=== PATIENT | male | born 1940 | race Caucasian/White ===

== ENCOUNTER 2016-04-28 14:04 | Observation (INO) | payer MEDICARE ==
[~2016-04-28] VITALS: Ht 175.3 cm; Wt 170.7 kg
[2016-04-28 14:04] VITALS: BP 124/76; PULSE 56; RESP 14; O2SAT 95
[~2016-04-28 14:04] MED LIST: ATOR40TA69 PO; CLON0.3T PO; CLOP75TA3 PO; HYDR-4003 PO; HYDR12.55 PO; LINE600T2 PO; LISI10TA PO; LORA1TAB PO; MELO-253 PO; METF500T4 PO; MULT1CAP33 PO; NITR0.4T SL; OXYB5TAB10 PO; RISP1TAB3 PO; VERA180T5 PO; VERA240C PO
--- NOTE | 2016-04-28 15:07 | DRSVH ---
PROCEDURE: X-RAY CHEST ONE VIEW, PORTABLE ([id number]) INDICATIONS: CHETS PAIN TECHNIQUE: One view of the chest was acquired. COMPARISON: [facility], , CHEST 1VW (PORTABLE), 09/16/2014, 21:01. FINDINGS: Surgical changes and devices: None. Lungs and pleura: Lung volumes are low there is bronchovascular crowding. Interstitium is prominent. Mediastinum: Mediastinal contours appear normal. Heart size is enlarged. Bones and chest wall: No suspicious bony lesions. Overlying soft tissues appear unremarkable. IMPRESSION: Bronchovascular crowding, interstitial prominence and cardiomegaly. Developing edema can not be excluded. Correlate clinically. Dictated by: Jm Lee [facility] Interpreted: Raquel Bush MD on 04/28/2016 at 15:07 Transcribed by: TIBURCIO on 04/28/2016 at 15:07 Approved by: Raquel Bush MD, PhD on 04/28/2016 at 16:56
[2016-04-28 15:28] LABS: BASOPHILS % (AUTO) 0.3 % (0-3); EOSINOPHILS % (AUTO) 1.8 % (0-5); MONOCYTES % (AUTO) 8.4 % (4-12); Mean Corpuscular Hemoglobin 28.1 pg (27.0-35.0); Mean Corpuscular Volume 88.5 fL (81-100); NEUTROPHILS % (AUTO) 78.7 % (40-74); Platelet Count 255 bil/L (150-400)
[2016-04-28 15:48] LABS: INR 0.95 ratio
[2016-04-28 16:00] LABS: TROPONIN T < 0.010 ug/L (0.0-0.011)
--- NOTE | 2016-04-28 16:08 | ED.REPORT ---
HPI-Chest Pain 40 and Over Date of Service Apr 28, 2016 ED Provider: Ozzy Keyes MD Pt is a 75 y/o male w/ a hx of CAD and STEMI s/p stenting, T2DM, HTN, hyperlipidemia, morbid obesity, presenting to the ED via EMS c/o CP onset 1-3 hours ago (pt gave 2 different start times). He states that his chest pain was preceded by a couple seconds where he felt his vision "went black", but states it was only a few seconds, he denies syncope, near syncope, loss which lasted 2- 3 seconds while sitting in his chair. But severely following this, he felt set of substernal chest discomfprt He . The character of this episode was same as a prior MT but the severity was less. His pain was a 5/10 at worst and is a 3/10 at current time. He denies palpitations, change in edema, SOB, diaphoresis, nausea, vomiting. He received ASA and NTG by EMS with improvement. Nursing Notes Stated Complaint: CHEST PAIN Chief Complaint: Dysrhythmia/Cardiac Nursing Notes Reviewed: Yes (Stayfilm (blank no info on presentation, meds not reconciled ) Allergies: Coded Allergies: penicillin G (Verified Allergy, Intermediate, rash, 11/20/15) Scheduled Atorvastatin Calcium (Atorvastatin Calcium) 40 Mg Tablet 40 MG PO HS Clonidine (Clonidine) 0.3 Mg Tablet 0.3 MG PO BID Clopidogrel Bisulfate (Plavix) 75 Mg Tablet 75 MG PO DAILY Hydrochlorothiazide (Hydrochlorothiazide) 12.5 Mg Tablet 12.5 MG PO DAILY Lisinopril (Lisinopril) 10 Mg Tablet 10 MG PO DAILY Lorazepam (Lorazepam) 1 Mg Tablet 1 MG PO BID Meloxicam (Meloxicam) 15 Mg Tablet 15 MG PO QAM Metformin (Metformin) 500 Mg Tablet 1,000 MG PO BIDWM Metoprolol Succinate ER (Metoprolol Succinate ER) 25 Mg Tab.er.24h 25 MG PO DAILY Multivitamin (Multivitamins) 1 Each Capsule 1 EACH PO DAILY Naproxen (Naproxen) 500 Mg Tab 500 MG PO BID Oxybutynin Chloride (Oxybutynin Chloride) 5 Mg Tablet 5 MG PO BID Risperidone (Risperidone) 1 Mg Tablet 1 MG PO DAILY Verapamil ER (Verapamil ER) 180 Mg Tablet.er 180 MG PO QPM Verapamil ER (Verapamil ER) 240 Mg Cap24h.pel 240 MG PO QPM Scheduled PRN Hydrocodone-Acetaminophen 10-325 mg (Hydrocodone-Acetaminophen 10-325 mg) 1 Each Tablet 1 EACH PO TID PRN PRN For Pain Nitroglycerin SL (Nitrostat) 0.4 Mg Subl 0.4 MG SL Q5MIN PRN PRN For Chest Pain General Time Seen by MD: 16:02 Chief Complaint Chest pain Hx Obtained From: Patient, EMS Arrived By: Ambulance Sudden in Onset?: Yes Onset Occurred: 1 - 4 hours ago Symptom Duration: Since onset Location: : Substernal Quality: Painful Severity: Current: Mild Severity: Maximum: Moderate Past Medical History Past Medical History Notes: Echocardiogram 09/2014 EF 40% with apical septal wall akinesis, no valvular disease His recent admission was November 2015 for acute on chronic lower extremity edema with question possible cellulitis and strep mitis bacteremia Past Medical History Obstructive sleep apnea Chronic back and bilateral knee pain due to arthritis No known PVD morbid obesity Coronary artery disease, and N-STEMI September 2014 Type II diabetes History of bipolar Reports: Diabetes mellitus, Hyperlipidemia, Hypertension Past Surgical History Cardiac cath September 2014, bare mental stent placed in the left anterior descending EGD September 2014, small sliding hiatal hernia, mild erosive gastropathy Colonoscopy September 2014, diminutive colon polyps Smoking History Former Smoker Social History Alcohol Use: Denies alcohol use Drug Use: Denies drug use Ambulatory Status Walker Review of Systems Constitutional: Denies: Chills, Fever Respiratory: Denies: Non-productive cough, Shortness of breath Cardiovascular: Reports: Chest pain, Denies: Edema GI: Denies: Abdominal pain, Diarrhea, Nausea, Vomiting Skin: Denies Diaphoresis Complete sys rev & neg: except as marked. Physical Exam Initial Vital Signs Vital Signs (First) Date Time Temp Pulse Resp B/P Pulse Ox O2 Delivery O2 Flow Rate FiO2 04/28/16 14:04 36.7 56 14 124/76 95 Room Air Initial VS: Reviewed, Vital signs normal Head / Eyes: Atraumatic, Normocephalic, PERRL ENT: Mucous membranes moist, Conjunctiva normal, No scleral icterus Neck: Supple, Full range of motion Skin: Warm, Dry, No cyanosis Neurologic: Alert, Oriented, Nonfocal Psychiatric: Mood/affect normal, Behavior normal, Normal thought content General/Constitutional: Awake, Alert, No acute distress, Cooperative, Not toxic appearing Appearance / Presentation: Positive: Obese, morbidly He is a poor historian Respiratory / Chest: Atraumatic, No respiratory distress, No retractions Unable to hear breath sounds secondary to body habitus Cardiovascular: Heart rate NL, Cap refill not delayed, Peripheral circulation NL Lower Ext Edema: Positive: Bilateral 2+, Pitting Unable to hear heart sounds secondary to body habitus Edema is chronic Abdomen: Atraumatic, Soft Lower Extremity / Pelvis / MS: Atraumatic, Full range of motion, No deformity, Neurologic intact, Vascular intact, No compartment syndrome Faint pinkess over the shins of legs bilaterally, does not appear infected Interpretation & Diagnostics Lab Results Interpretation Result Diagram: 04/28/16 1516 04/28/16 1516 Test 04/28/16 15:16 White Blood Count 9.6th/mm3 (3.8-10.1) Red Blood Count 4.09mil/mm3 (4.40-5.80) Hemoglobin 11.5g/dL (13.8-17.2) Hematocrit 36.2% (41.0-50.0) Mean Corpuscular Volume 88.5fL (81-100) Mean Corpuscular Hemoglobin 28.1pg (27.0-35.0) Mean Corpuscular Hemoglobin Concent 31.8% (32.0-37.0) Red Cell Distribution Width 15.1% (12.3-15.4) Platelet Count 255bil/L (150-400) Neutrophils (%) (Auto) 78.7% (40-74) Lymphocytes (%) (Auto) 10.5% (14-46) Monocytes (%) (Auto) 8.4% (4-12) Eosinophils (%) (Auto) 1.8% (0-5) Basophils (%) (Auto) 0.3% (0-3) Prothrombin Time 10.2sec (8.1-12.5) Prothromb Time International Ratio 0.95ratio Activated Partial Thromboplast Time 26.4sec (22.8-33.0) Sodium Level 139mEq/L (134-144) Potassium Level 4.6mEq/L (3.5-5.2) Chloride Level 99mEq/L (97-108) Carbon Dioxide Level 26mmol/L (18-29) Blood Urea Nitrogen 29mg/dL (8-27) Creatinine 1.14mg/dL (0.76-1.27) Estimat Glomerular Filtration Rate 67mL/min (>59) Glucose Level 127mg/dL (60-99) Calcium Level 9.3mg/dL (8.5-10.1) Magnesium Level 1.7mg/dL (1.6-2.6) Total Bilirubin 0.3mg/dL (0.0-1.2) Aspartate Amino Transf (AST/SGOT) 21U/L (0-50) Alanine Aminotransferase (ALT/SGPT) 24U/L (0-44) Alkaline Phosphatase 58U/L (25-160) Troponin T < 0.010ug/L (0.0-0.011) Pro-B-Type Natriuretic Peptide 262.8pg/mL (0-486) Total Protein 6.5g/dL (6.4-8.4) Albumin 3.5g/dL (3.4-5.0) Hold Perkins Top Tube Received (Received) Lab Results Interpretation: CBC normal CMP normal Troponin #1 negative ECG Interpretation ECG Interpretation: Sinus rhythm rate 57 Q waves inferiorly Time: 16:16 Interpreted by: ED physician Normal ECG Interpretation: No acute ischemic changes, No change from prior ECGs X-Ray Chest Interpretation Chest Xray Interpretation: IMPRESSION: Bronchovascular crowding, interstitial prominence and cardiomegaly. Developing edema cannot be excluded. Correlate clinically. Dictated by: Jm Lee RRA Interpreted: Raquel Bush MD on 04/28/2016 at 15:07 Transcribed by: TIBURCIO on 04/28/2016 at 15:07 View: Portable, 1 view Interpretation / Wet Read by: Interpret - Radiologist Re-Eval/Medical Decision Med Decision/Clinical Course This is a 75-year-old morbidly obese gentleman with a prior history of coronary disease who has a bare metal stent to left anterior descending that was placed following an N STEMI in September 2014 who presents today complaining of chest discomfort that he says is identical in character, although not quite as severe , as his symptoms he had when he had his MT. The exact onset, is a bit unclear he is given several different start times-but in general is been a couple of hours of discomfort. EMS administered nitroglycerin and a dose of morphine and he is significantly improved, but he states he still has a trace bit of discomfort. He received another dose of nitroglycerin and another dose of morphine, and his chest discomfort resolved. He is morbidly obese, making it difficult to clinically assess CHF, he has chronic edema in his legs which he states is unchanged. He does not have a prior history of DVT or PE. He is not tachycardic, hypotensive, or hypoxic. It is very clear that his symptoms are identical in character, just not as severe as his prior MT, making a cardiac evaluation most likely. I think PE is less likely, and given the normal vitals and absence of other findings to suggest a PE, I believe he is low probability enough for an alternate explanation, that time d-dimer testing of requiring CT angiogram is not indicated at this time. he had Nitropaste applied. He received aspirin in the field, he tells me he is on daily aspirin-although it is not on the printed med list in pulse from his wallet. His discharge instructions frm November 2015 included Plavix, but he indicates he is no longer on Plavix. (Actually he states he does not know what medications he takes, but he goes off the list that he carries in his wallet- and it is not on that list. As stated above, he does indicate he takes aspirin , and it is not on the list from his wallet) Overall, his symptoms are concerning for the possibility of an acute cardiac syndrome. Observation admission and serial enzymes are warranted. The case was discussed with the hospitalist. Source of Hx: Old records Time of Eval: 17:03 Patient Status: Condition improved, Pain improved Re-Evaluation/Progress Note: Pt rechecked. Informed pt of need for admission due to possible/likely severity of condition. Pt understands and agrees with plan for admission. All questions addressed. Consultation : Referral / Consult Name: Amita Haley MD Consulted With: Hospitalist Call Returned at: 17:04 Air Intercept Controller: Will see patient, Agrees with eval, Agrees with plan, Accepts admit Differential Diagnosis: Positive: Chest pain, acute, Negative: Dysrhythmia, Gun shot wound chest, Mitral valve prolapse, Musculoskeletal pain, Myocarditis, Peptic ulcer disease, Pneumomediastinum, Pneumonia, Pneumothorax, Pulmonary edema, Pulmonary embolism, Rib fracture Counseled Regarding: Diagnosis, Lab results, Need for admission Discharge & Departure Primary Impression: Chest pain Chest pain type: unspecified Qualified Code: R07.9 - Chest pain, unspecified Additional Impression: Morbid obesity Obesity type: unspecified obesity type Qualified Code: E66.01 - Morbid ( severe) obesity due to excess calories Disposition: ADMITTED TO HOSPITAL Discharge Condition All VS Reviewed: Yes Condition: Stable Referrals: Vladislav Patel DO (PCP) Merary Attestation Portions of this note were transcribed by El Zepeda. I, Dr. Keyes personally performed the history, physical exam and medical decision-making; I reviewed and confirmed the accuracy of the information in the transcribed note. Signed by Merary Easton, 04/28/16 - [phone] copies to: Vladislav Patel Matthew F MD Apr 28, 2016 16:08 EL ZEPEDA Apr 28, 2016 16:16
[2016-04-28 16:10] LABS: Magnesium 1.7 mg/dL (1.6-2.6)
[2016-04-28] MEDS ORDERED: Nitroglycerin 2% 1 Gm Ointment TOPICAL SCH (16:20)
[2016-04-28 16:46] VITALS: BP 127/49; PULSE 53; RESP 16; O2SAT 97
[2016-04-28] MEDS ORDERED: NPR500T PO (17:00)
[2016-04-28 17:08] VITALS: BP 116/50; PULSE 51; RESP 16; O2SAT 95
[2016-04-28] MEDS ORDERED: HYDR-3740 PO (17:09)
[2016-04-28] MEDS ORDERED: METO25TA99 PO (17:09)
[2016-04-28] MEDS ORDERED: Alum-Mag Hydrox-Simeth 30 mL Suspension PO PRN (17:10)
[2016-04-28] MEDS ORDERED: Ondansetron 2 mg/mL 2 mL Inj IVPUSH PRN (17:10)
[2016-04-28] MEDS ORDERED: Senna-Docusate 8.6-50 mg Tablet PO PRN (17:15)
[2016-04-28] MEDS ORDERED: Polyethylene Glycol (PEG) 17 Gm Powder PO PRN (17:15)
[2016-04-28] MEDS ORDERED: Glucose 40% Oral Gel 15 Gm Tube PO PRN (17:15)
--- NOTE | 2016-04-28 17:17 | PCM.HPMED ---
Subjective Date of Service Apr 28, 2016 Primary Provider: Admitting Physician: Primary Care Physician: Vladislav Patel DO Attending Physician: Chief Complaint: Chest pain HISTORY was OBTAINED FROM PATIENT -He is a poor historian / [employer] NOTES History of present illness 75-year-old male, walker at baseline,sudden-onset bilateral vision loss which lasted 2-3 seconds while sitting in his chair then chest pain substernal similar to his DE previously. No shortness of breath no sweating, improved when EMS administered nitroglycerin and aspirin, further improved when ER administered nitroglycerin and morphine. This does not feel like acid reflux.frequent urinary baseline, asked ER to place miles. Review of Systems - none of the following - F/C/sick contact / wt change/ SIMON / lightheaded / dizziness / sob / cough / cp / acid reflux / n/v/diarrhea / bleeding/bruising / leg swelling / change in voiding / yeast infections / rash FAMILY HX no CAD MEDICATIONS Scheduled Atorvastatin Calcium (Atorvastatin Calcium) 40 Mg Tablet 40 MG PO HS Clonidine (Clonidine) 0.3 Mg Tablet 0.3 MG PO BID Clopidogrel Bisulfate (Plavix) 75 Mg Tablet 75 MG PO DAILY Hydrochlorothiazide (Hydrochlorothiazide) 12.5 Mg Tablet 12.5 MG PO DAILY Lisinopril (Lisinopril) 10 Mg Tablet 10 MG PO DAILY Lorazepam (Lorazepam) 1 Mg Tablet 1 MG PO BID Meloxicam (Meloxicam) 15 Mg Tablet 15 MG PO QAM Metformin (Metformin) 500 Mg Tablet 1,000 MG PO BIDWM Multivitamin (Multivitamins) 1 Each Capsule 1 EACH PO DAILY Naproxen (Naproxen) 500 Mg Tab 500 MG PO BID Oxybutynin Chloride (Oxybutynin Chloride) 5 Mg Tablet 5 MG PO BID Risperidone (Risperidone) 1 Mg Tablet 1 MG PO DAILY Verapamil ER (Verapamil ER) 180 Mg Tablet.er 180 MG PO QPM Verapamil ER (Verapamil ER) 240 Mg Cap24h.pel 240 MG PO QPM Scheduled PRN Nitroglycerin SL (Nitrostat) 0.4 Mg Subl 0.4 MG SL Q5MIN PRN PRN For Chest Pain Past Medical History Echocardiogram 09/2014 EF 40% with apical septal wall akinesis, no valvular disease His recent admission was November 2015 for acute on chronic lower extremity edema with question possible cellulitis and strep mitis bacteremia Obstructive sleep apnea Chronic back and bilateral knee pain due to arthritis No known PVD morbid obesity Type II diabetes History of bipolar Diabetes mellitus, Hyperlipidemia, Hypertension Cardiac cath September 2014, bare mental stent placed in the left anterior descending EGD September 2014, small sliding hiatal hernia, mild erosive gastropathy Colonoscopy September 2014, diminutive colon polyps Smoking History Former Smoker Allergies Coded Allergies: penicillin G (Verified Allergy, Intermediate, rash, 11/20/15) PMH Social History Hx Alcohol Use: Yes (stopped drinking 30 years ago) Hx Substance Use: No Hx Tobacco Use: No Smoking Status: Former Smoker Exam Vital Signs Vital Sign - Last Date Time Temp Pulse Resp B/P Pulse Ox O2 Delivery O2 Flow Rate FiO2 04/28/16 17:08 51 16 116/50 95 Room Air 04/28/16 16:46 36.4 Exam Exam on admission NAD A and O x 3 mood affect WNL NC/AT no icterus no injected eyes EOMI PERRL /no pharyngeal lesions/ no oral lesions / hearing intact Supple neck CTAB equal chest rise / no accessory muscle use / speaks in full sentences / no rrw RRR S1 S2 / no mrg / 2+ radial pulses Soft nt nd + BS no hepatosplenomegaly Moderate matute edema // mild erythema no cyanosis no ecchymosis of lower extremities No rash / no jaundice LIVIER Miles clear yellow trop i neg 11/2015 echo EF 55-60% EKG SR poor R wave progression Lab and Diagnostics Result Diagram: 04/28/16 1516 04/28/16 1516 Assessment & Plan Active issues and reason for admission 75-year-old male who presents with chest pain that similar to prior DE, bare metal stent- LAD baseline walker. -- Serial troponin, echo pending, lipid panel, --anticipate ordering stress nuc med echo in the morning, if negative troponin -- Aspirin morphine nitroglycerin Chronic issues known prior to admission, present on admission Echocardiogram 09/2014 EF 40% with apical septal wall akinesis, no valvular disease His recent admission was November 2015 for acute on chronic lower extremity edema with question possible cellulitis and strep mitis bacteremia Obstructive sleep apnea Chronic back and bilateral knee pain due to arthritis No known PVD morbid obesity Type II diabetes History of bipolar Diabetes mellitus, Hyperlipidemia, Hypertension Cardiac cath September 2014, bare mental stent placed in the left anterior descending EGD September 2014, small sliding hiatal hernia, mild erosive gastropathy Colonoscopy September 2014, diminutive colon polyps -- Resume home medications, sliding scale insulin for now Diet cardiac diabetic nothing by mouth in the morning DVT prophylaxis lovenox Code full, per history DNR, confirm in the morning Disposition OBS status Assessment and plan were discussed with patient Amita Haley MD Apr 28, 2016 17:17
[2016-04-28 17:27] VITALS: BP 129/29; PULSE 52; RESP 16; O2SAT 95
[2016-04-28] MEDS: Insulin LISPRO 300 Unit/3 mL Inj SUBQ SCH ×2 (17:30→22:07)
[2016-04-28 19:47] VITALS: BP 143/83; PULSE 62; RESP 16; O2SAT 97
[2016-04-28] MEDS: Pantoprazole 20 mg ER24 Tablet PO SCH (20:23)
[2016-04-28 22:10] LABS: Creatine Kinase 34 U/L (21-232)
--- NOTE | 2016-04-28 22:30 | NUR ---
ADMIT Pt arrived via bariatric bed at 1900, received by day shift RN initially then transferred to this RN. A&Ox4, VSS, admit and med rec done per admit RN. Pt has no pain at this time. Continuing care.
[2016-04-28] MEDS ORDERED: COD28PAS TOP (22:37)
[2016-04-28] MEDS ORDERED: VERAPAMIL 240 MG PO SCH (23:00)
[2016-04-29] VITALS (8 sets, daily range): BP systolic 109–127; BP diastolic 58–84; PULSE 58–66; RESP 16–20; O2SAT 93–96
[2016-04-29] MEDS: Sodium Chloride LOK Flush 10 mL Syringe IVFLUSH SCH ×4 (00:28→23:44)
--- NOTE | 2016-04-29 01:11 | NUR ---
pain patient has pain to right hip. chronic. rates 8 per scale, requests pain medication as per med rec notified Dr Xie received orders for hydrocodone 10-325 plan to administer and re assess.
[2016-04-29] MEDS: HYDROcodone-APAP 10-325 mg PO PRN ×4 (01:21→20:08)
[2016-04-29 01:27] LABS: APPEARANCE,URINE HAZY (CLEAR,HAZY); COLOR,URINE YELLOW (YELLOW); OCCULT BLOOD,URINE LARGE (NEGATIVE); PH,URINE 5.5 (5.0-8.0); UROBILINOGEN,URINE NORMAL (NORMAL)
[2016-04-29 03:21] LABS: BASOPHILS % (AUTO) 0.2 % (0-3); EOSINOPHILS % (AUTO) 3.5 % (0-5); MONOCYTES % (AUTO) 10.4 % (4-12); Mean Corpuscular Volume 88.9 fL (81-100); NEUTROPHILS % (AUTO) 71.1 % (40-74); Platelet Count 265 bil/L (150-400)
[2016-04-29 04:09] LABS: Creatine Kinase 28 U/L (21-232)
[2016-04-29] MEDS: Insulin LISPRO 300 Unit/3 mL Inj SUBQ SCH ×4 (08:00→22:00)
[2016-04-29] MEDS ORDERED: Verapamil SR 180 mg ER12 Tablet PO SCH (08:30)
[2016-04-29] MEDS ORDERED: MeTOProlol XL 25 mg ER24 Tablet PO SCH (08:30)
[2016-04-29] MEDS: risperiDONE 1 mg Tablet PO SCH (09:32)
[2016-04-29] MEDS: LORazepam 1 mg Tablet PO SCH ×2 (09:32→20:08)
[2016-04-29] MEDS: Pantoprazole 20 mg ER24 Tablet PO SCH ×2 (09:32→20:08)
[2016-04-29] MEDS: cloNIDine 0.1 mg Tablet PO SCH ×2 (10:19→20:08)
--- NOTE | 2016-04-29 10:20 | NUR ---
Stress Test patient went for stress test at 1020. blood sugar 106. has been NPO since last night. Held Metoprolol and Verampill per MD orders. c/o pain 8/ to hip and PRN [place] given as ordered with effective results.
--- NOTE | 2016-04-29 12:15 | NUR ---
Back from stress test. patient back from stress test. blood [id number] after stress test and per patient," they fed me muffin over there." Telemetry on.
--- NOTE | 2016-04-29 13:44 | NUR ---
Attempted to give SANCHEZ and Medicare Part D info to pt at 11:12 am, out of room (at test). Will try this afternoon. BTMILLIE banegas RN
--- NOTE | 2016-04-29 14:34 | NUR ---
Case Managment: SANCHEZ and Medicare Part D info given and explained to pt at 2:05 pm at bedside. Pt had no questions at this time. Copy given to pt, original placed on pt's hard chart. MILLIE Sánchez RN
--- NOTE | 2016-04-29 16:14 | DRSVH ---
[facility] [address] [place] [address] Echocardiogram Report Name: SALVADOR CASTRO MStudy Date : 04/29/2016 Height: 69 in Hospital Exam Location: [facility] Weight: 376 lb Gender: Male BSA: 2.7 m2 : 1940 Age: 75 yrs BP: 122/75 mmHg Reason For Study: Chest pain Ordering Physician: Performed By: Sudha Cardona Referring Physician: Vladislav Patel Interpretation Summary The study quality was technically limited. A contrast injection of Definity was performed to improve assessment of LV function. Left ventricular ejection fraction is estimated to be 45 +/- 5%. There is apical moderate hypokinesis. Procedure: A two-dimensional transthoracic echocardiogram with color flow and Doppler was performed. The study quality was technically limited. Comparison is made with the echocardiogram of 11-21-15. A contrast injection of Definity was performed to improve assessment of LV function. There were very limited images due to the patients body habitus. The patient was in normal sinus rhythm during the exam. Left Ventricle: The left ventricle is normal in size. Left ventricular ejection fraction is estimated to be 45 +/- 5%. There is apical moderate hypokinesis. Right Ventricle: The right ventricle grossly appears normal in size with probable normal systolic function. Atria: The left atrial size is normal. Mitral Valve: The mitral valve is grossly normal. Aortic Valve: The aortic valve is grossly normal. Tricuspid Valve: The tricuspid valve is not well visualized, but is grossly normal. There is trace tricuspid regurgitation. Pulmonic Valve: The pulmonic valve is not well visualized. Great Vessels: The aortic root is normal size. The ascending aorta is mildly enlarged. The inferior vena cava was not well visualized. Pericardium/ Pleura There is no pericardial effusion. MMode/2D Measurements & Calculations EPSS: 1.4 cm LA dimension: 3.8 cm AoV Openin.0 cm Ao root diam: 3.5 cm Aortic Jxn: 3.0 cm asc Aorta Diam: 3.9 cm Doppler Measurements & Calculations TR max vicki: 291.0 cm/sec TR max P.9 mmHg Electronically signed by: Harjit Ray on Reading Physician:04/29/2016 04:13 PM
--- NOTE | 2016-04-29 17:36 | NUR ---
Echo and stress test patient is alert and oriented X3. Able to make needs known. stable vital signs. room air. Stress test day 2 tomorrow morning. NPO after mid night for stress test day 2. Echo cardiogram done this shift. Landaverde is patent and draining clear yellow urine. patient c/o pain this shift right hip and PRN pain medication given for pain 10/18 this shift as ordered with effective results. blood sugars 106, 222, 211. insulin given as ordered. on Telemetry and sinus 68 per tele. call light with in reach for safety and uses as needed. stable mood. continue to monitor for pain, safety, and blood sugars as ordered.
--- NOTE | 2016-04-29 20:43 | PCM.PNMED ---
Subjective Date of Service Apr 29, 2016 Subjective Patient was seen and examined at bedside patient denied any chest pain, shortness of breath, nausea, vomiting, diarrhea. Exam Vital Signs Vital Sign - Last Date Time Temp Pulse Resp B/P Pulse Ox O2 Delivery O2 Flow Rate FiO2 04/29/16 20:25 36.8 62 16 127/76 94 Room Air Intake and Output 04/28/16 04/28/16 04/29/16 Cumulative From/Thru 14:59 22:59 06:59 04/28/16 14:04 - 04/29/16 05:29 Intake Total 350 ml 350 ml Output Total 1500 ml 1500 ml Balance -1150 ml -1150 ml Intake Oral 350 ml 350 ml Output Urine Total 1500 ml 1500 ml # Bowel Movements 0 0 Exam Physical Exam: GEN: Patient was awake, alert, responding appropriately to questions HEENT: PERRLA, EOMI, Neck soft supple, trachea midline, nomocephalic/atraumatic CV: +S1/S2, RRR, no murmurs auscultated Respiratory: CTAB, no wheezes, rales, rhonchi GI: +bowel sounds x4, soft, compressible, non TTP EXT: no c/c/ 2+ pitting edema Neuro: CN II-XII grossly intact Psych: mood and affect were appropriate IVs and Medications Medications Reviewed: Medications were reviewed in detail Medications Current Medications Pantoprazole 20 mg BID PO Last administered on 04/30/16 08:21; Admin Dose 20 MG ; Start 04/28/16 at 20:30 Sodium Chloride 10 ml CRISTINA IVFLUSH Last administered on 04/30/16 16:59; Admin Dose 10 ML; Start 04/29/16 at 00:30 Aspirin 81 mg DAILY PO Last administered on 04/30/16 08:21; Admin Dose 81 MG; Start 04/29/16 at 08:30 Atorvastatin Calcium 40 mg HS PO Last administered on 04/29/16 20:08; Admin Dose 40 MG; Start 04/29/16 at 21:00 Lisinopril 10 mg DAILY PO Last administered on 04/30/16 08:21; Admin Dose 10 MG ; Start 04/29/16 at 08:30 Lorazepam 1 mg BID PO Last administered on 04/30/16 08:21; Admin Dose 1 MG; Start 04/29/16 at 08:30 Metoprolol Succinate 25 mg DAILY PO; Start 04/29/16 at 08:30; Stop 04/29/16 at 09:52; Status DC Risperidone 1 mg DAILY PO Last administered on 04/30/16 08:21; Admin Dose 1 MG ; Start 04/29/16 at 08:30 Verapamil HCl 180 mg DAILY@0830 PO; Start 04/29/16 at 08:30; Stop 04/29/16 at 09 :52; Status DC Clonidine 0.3 mg BID PO Last administered on 04/30/16 08:21; Admin Dose 0.3 MG ; Start 04/29/16 at 08:30 Hydrochlorothiazide 12.5 mg DAILY PO Last administered on 04/30/16 08:22; Admin Dose 12.5 MG; Start 04/29/16 at 08:30 Non-Formulary Medication 240 mg QPM PO; Start 04/28/16 at 23:00; Status UNV Verapamil HCl 240 mg HS PO; Start 04/28/16 at 23:00; Stop 04/29/16 at 00:06; Status DC Verapamil HCl 240 mg HS PO; Start 04/29/16 at 21:00; Stop 04/29/16 at 21:00; Status DC Acetaminophen/ Hydrocodone Bitart 1 tablet TID PRN PO Last administered on 04/30 18:18; Admin Dose 1 TABLET; Start 04/29/16 at 01:10 Lab and Diagnostics Result Diagram: 04/29/1623904/29/16239 Assessment & Plan 75-year-old male who presents with chest pain that similar to prior [place], bare metal stent- LAD baseline walker. Chest pain that similar to prior VT, bare metal stent- LAD baseline walker. -- Serial troponin, echo pending, lipid panel, --anticipate ordering stress nuc med echo in the morning, if negative troponin -- Aspirin morphine nitroglycerin Chronic issues known prior to admission, present on admission Echocardiogram 09/2014 EF 40% with apical septal wall akinesis, no valvular disease His recent admission was November 2015 for acute on chronic lower extremity edema with question possible cellulitis and strep mitis bacteremia Obstructive sleep apnea Chronic back and bilateral knee pain due to arthritis No known PVD morbid obesity Type II diabetes History of bipolar Diabetes mellitus, Hyperlipidemia, Hypertension Cardiac cath September 2014, bare mental stent placed in the left anterior descending EGD September 2014, small sliding hiatal hernia, mild erosive gastropathy Colonoscopy September 2014, diminutive colon polyps -- Resume home medications, sliding scale insulin for now Diet cardiac diabetic nothing by mouth in the morning DVT prophylaxis lovenox Code full, per history DNR, confirm in the morning Disposition OBS status Assessment and plan were discussed with patient VTE Mechanical Devices: Intermittant Pneumatic CD Emi Lorenzo DO Apr 29, 2016 20:43
[2016-04-29] MEDS ORDERED: Verapamil SR 240 mg ER12 Tablet PO SCH (21:00)
--- NOTE | 2016-04-29 23:40 | NUR ---
pain patient complains of right hip discomfort earlier in the shift. repositioned on right side (patient prefers the right) medicated with hyrdrocodone 10-325 one tablet patient resting now. rates pain tolerable as a 3. care ongoing.
[2016-04-30] VITALS (7 sets, daily range): BP systolic 137–171; BP diastolic 60–87; PULSE 58–148; RESP 16–18; O2SAT 93–98
[2016-04-30] MEDS: HYDROcodone-APAP 10-325 mg PO PRN ×3 (02:40→18:18)
[2016-04-30] MEDS: Insulin LISPRO 300 Unit/3 mL Inj SUBQ SCH ×4 (08:00→22:00)
--- NOTE | 2016-04-30 08:15 | NUR ---
Nuclear Med Nuclear Med came up to give patient injection prior to stress, she stated patient can have all of his morning meds and eat now, he no longer has any restrictions and stated they will be back to get him in about 30 min.
[2016-04-30] MEDS: cloNIDine 0.1 mg Tablet PO SCH ×2 (08:21→22:54)
[2016-04-30] MEDS: LORazepam 1 mg Tablet PO SCH ×2 (08:21→20:39)
[2016-04-30] MEDS: risperiDONE 1 mg Tablet PO SCH (08:21)
[2016-04-30] MEDS: Pantoprazole 20 mg ER24 Tablet PO SCH ×2 (08:21→20:40)
[2016-04-30 08:48] LABS: Mean Corpuscular Hemoglobin 27.6 pg (27.0-35.0); Mean Corpuscular Volume 88.7 fL (81-100)
[2016-04-30] MEDS: Sodium Chloride LOK Flush 10 mL Syringe IVFLUSH SCH ×2 (08:56→16:59)
--- NOTE | 2016-04-30 10:30 | NUR ---
Morning Rounds Staffed patient's case with Dr. Lorenzo, social work and case management. Dr. Lorenzo stated follow up stress test results from today still pending, no plan for discharge at this time. I asked for PT eval.
--- NOTE | 2016-04-30 14:46 | DRSVH ---
PROCEDURE: TWO DAY STRESS TEST. Rest and pharmacological stress myocardial perfusion SPECT RADIOPHARMACEUTICAL: 26 mCi Tc-99m tetrofosmin IV at rest and 26 mCi Tc-99m tetrofosmin IV at peak e ffect of pharmacological stress. [id number] was performed. INDICATIONS: CHEST PAIN TECHNIQUE: Radiopharmaceutical was injected at peak stress test, and also at rest. SPECT images wer e obtained. SPECT myocardial perfusion images were displayed in short axis, horizontal long axis, an d vertical long axis views. Images were reviewed using uma information technology software. COMPARISON: None. CARDIAC STRESS: A pharmacologic stress test was performed under the supervision of attending staff, using an infusion of Lexiscan. Hemodynamic data: There is normal blood pressure and heart rate response to pharmacologic stress. Symptoms: The patient denied anginal chest pain. Aminophylline: Not given. EKG: No diagnostic changes of ischemia; no ectopy. FINDINGS: Raw Data: There is good myocardial uptake of radiotracer. No significant motion artifacts. Lung-to -heart ratio is 0.35 (normal is less than 0.38 for tetrofosmin tracer). TID is 1.02. Left Ventricle Function: Gated images were not obtained to assess wall motion and ejection fraction, due to irregular heart rate. Myocardial Perfusion: There is normal distribution of activity in the right and left ventricular carl cardium. No fixed or reversible perfusion defects. There is a mild anteroapical defect. There is m inimal improvement at rest in the anterior wall. Overall, this is a mild defect. There is a predomi nantly fixed inferior defect. Some of this could be due to attenuation artifact. The apical defect is essentially fixed. It is the anterior part of the anteroapical defect that improves. IMPRESSION: No significant ST-T changes. Mildly reversible anterior defect, fixed apical defect, so me of it could be due attenuation artifact, even patient's body habitus. Prone images, however, coul d not be obtained. Overall this is an intermediate risk stress test. Dictated by: Harjit Ray M.D. on 04/30/2016 at 13:02 Transcribed by: ELSA on 04/30/2016 at 17:46 Approved by: Harjit Ray M.D. on 05/14/2016 at 14:20
--- NOTE | 2016-04-30 19:28 | PCM.PNMED ---
Subjective Date of Service Apr 30, 2016 Subjective Patient was examined at bedside today. Patient denies any chest pain, nausea, vomiting, diarrhea. Patient reports some mild shortness of breath Exam Vital Signs Vital Sign - Last Date Time Temp Pulse Resp B/P Pulse Ox O2 Delivery O2 Flow Rate FiO2 04/30/16 18:24 36.6 148 16 148/60 96 Room Air 04/30/16 07:55 2.00 Intake and Output 04/29/16 04/29/16 04/30/16 Cumulative From/Thru 15:00 23:00 07:00 04/28/16 14:04 - 04/30/16 05:45 Intake Total 600 ml 950 ml Output Total 3100 ml 4600 ml Balance -2500 ml -3650 ml Intake Oral 600 ml 950 ml Output Urine Total 3100 ml 4600 ml # Bowel Movements 0 Exam Physical Exam: GEN: Patient was awake, alert, responding appropriately to questions HEENT: PERRLA, EOMI, Neck soft supple, trachea midline, nomocephalic/atraumatic CV: +S1/S2, RRR, no murmurs auscultated Respiratory: CTAB, no wheezes, rales, rhonchi GI: +bowel sounds x4, soft, compressible, non TTP : [place] in place EXT: no c/c 2+ bilateral pitting edema, mild tenderness to palpation bilaterally Neuro: CN II-XII grossly intact Psych: mood and affect were appropriate IVs and Medications Medications Reviewed: Medications were reviewed in detail Lab and Diagnostics Result Diagram: 04/30/16 0813 04/29/16 0240 Cardiac Echo Impressions Echocardiogram Report Name: SALVADOR CASTRO MStudy Date : 04/29/2016 Height: 69 in Hospital Exam Location: [facility] Weight: 376 lb Gender: Male BSA: 2.7 m2 : 1940 Age: 75 yrs BP: 122/75 mmHg Reason For Study: Chest pain Ordering Physician: Performed By: Sudha Cardona Referring Physician: Vladsilav Patel Interpretation Summary The study quality was technically limited. A contrast injection of Definity was performed to improve assessment of LV function. Left ventricular ejection fraction is estimated to be 45 +/- 5%. There is apical moderate hypokinesis. Procedure: A two-dimensional transthoracic echocardiogram with color flow and Doppler was performed. The study quality was technically limited. Comparison is made with the echocardiogram of 11-21-15. A contrast injection of Definity was performed to improve assessment of LV function. There were very limited images due to the patients body habitus. The patient was in normal sinus rhythm during the exam. Left Ventricle: The left ventricle is normal in size. Left ventricular ejection fraction is estimated to be 45 +/- 5%. There is apical moderate hypokinesis. Right Ventricle: The right ventricle grossly appears normal in size with probable normal systolic function. Atria: The left atrial size is normal. Mitral Valve: The mitral valve is grossly normal. Aortic Valve: The aortic valve is grossly normal. Tricuspid Valve: The tricuspid valve is not well visualized, but is grossly normal. There is trace tricuspid regurgitation. Pulmonic Valve: The pulmonic valve is not well visualized. Great Vessels: The aortic root is normal size. The ascending aorta is mildly enlarged. The inferior vena cava was not well visualized. Pericardium/ Pleura There is no pericardial effusion. MMode/2D Measurements & Calculations EPSS: 1.4 cm LA dimension: 3.8 cm AoV Openin.0 cm Ao root diam: 3.5 cm Aortic Jxn: 3.0 cm asc Aorta Diam: 3.9 cm Doppler Measurements & Calculations TR max vicki: 291.0 cm/sec TR max P.9 mmHg Electronically signed by: Harjit Ray on Reading Physician:04/29/2016 04:13 PM Assessment & Plan 75-year-old male who presents with chest pain that similar to prior [place], bare metal stent- LAD baseline walker. Chest pain that similar to prior SD, bare metal stent- LAD baseline walker. -- Serial troponins negative --Echo pending chest EF of 40-45% --lipid panel within normal limits --anticipate ordering stress nuc med showed a mid distal inferior wall defect and a follow-up echo was done today -- Continue aspirin 81 mg daily -- Nitroglycerin 0.4 mg when necessary chest pain Diabetes type II -- Continue Insulin sliding scale -- Accu-Cheks before meals and at bedtime Hypertension -- Continue hydrochlorothiazide 12.5 mg twice a day --Continue clonidine 0.3 twice a day -- Continue lisinopril 10 mg daily Morbid obesity with deconditioning -- PT eval and treat GERD secondary to Sliding hiatal hernia with mild erosive gastropathy chronic -- Continue Protonix 20 mg twice a day History of bipolar -- Continue Risperdal 1 mg daily -- Ativan 1 mg twice a day Chronic problems upon admission Obstructive sleep apnea Chronic back and bilateral knee pain due to arthritis Diet cardiac diabetic DVT prophylaxis lovenox Code full, per history DNR, confirm in the morning VTE Mechanical Devices: Intermittant Pneumatic CD Emi Lorenzo DO Apr 30, 2016 19:28
[2016-05-01] VITALS (9 sets, daily range): BP systolic 127–162; BP diastolic 75–94; PULSE 53–95; RESP 16–20; O2SAT 95–100
[2016-05-01] MEDS: Sodium Chloride LOK Flush 10 mL Syringe IVFLUSH SCH ×4 (00:05→23:06)
[2016-05-01] MEDS: HYDROcodone-APAP 10-325 mg PO PRN ×3 (00:05→20:15)
--- NOTE | 2016-05-01 04:15 | NUR ---
Pain Patient reporting 6/10 pain in his hip; hydrocodone-acetaminophen tablet given per orders with only slight improvement in patient's reported pain. Patient later noted to be sleeping. Continue to monitor.
[2016-05-01] MEDS: Insulin LISPRO 300 Unit/3 mL Inj SUBQ SCH ×4 (08:00→22:00)
[2016-05-01] MEDS: LORazepam 1 mg Tablet PO SCH ×2 (08:14→20:26)
[2016-05-01] MEDS: cloNIDine 0.1 mg Tablet PO SCH ×2 (08:14→20:26)
[2016-05-01] MEDS: Pantoprazole 20 mg ER24 Tablet PO SCH ×2 (08:14→20:26)
[2016-05-01] MEDS: risperiDONE 1 mg Tablet PO SCH (08:14)
--- NOTE | 2016-05-01 10:45 | NUR ---
Morning Rounds Staffed patient's case with Dr. Lorenzo and Social Work. Dr. Lorenzo stated patient can be discharged pending PT eval. I stated patient will need assistance with transportation if he is discharged home. Dr. Lorenzo asked for RN to call her once PT has seen patient.
--- NOTE | 2016-05-01 12:38 | NUR ---
Discharge Planning Patient's friend/former caregiver Shalini Miller is present at this time, stated she would like to speak with a transportation planner, as patient is not able to care for himself at home. I told her there is not an order for discharge at this time, but would contact the social media director to have someone speak with her, called [phone] to speak with social media director, but was only able to leave a message at this time. PT eval was completed, but they did not feel patient was ready for discharge today.
--- NOTE | 2016-05-01 12:57 | NUR ---
Evaluation completed. Please go to "Notes" then click on "Assessments and Notes" (bottom left corner of screen). Then select appropriate discipline tab on top of screen.
--- NOTE | 2016-05-01 16:54 | PCM.PNMED ---
Subjective Date of Service May 01, 2016 Subjective Patient was examined at bedside today. Patient denies any chest pain, shortness of breath, nausea, vomiting, diarrhea. Patient states that he has been feeling weak and is concerned about his safety being discharged home. Exam Vital Signs Vital Sign - Last Date Time Temp Pulse Resp B/P Pulse Ox O2 Delivery O2 Flow Rate FiO2 05/01/16 12:47 36.5 64 18 127/81 96 Nasal Cannula 2.00 Intake and Output 04/30/16 04/30/16 05/01/16 Cumulative From/Thru 15:00 23:00 07:00 04/28/16 14:04 - 05/01/16 05:18 Intake Total 1680 ml 600 ml 3230 ml Output Total 1400 ml 750 ml 6750 ml Balance 280 ml -150 ml -3520 ml Intake Oral 1680 ml 600 ml 3230 ml Output Urine Total 1400 ml 750 ml 6750 ml # Bowel Movements 0 Exam Physical Exam: GEN: Patient was awake, alert, responding appropriately to questions HEENT: PERRLA, EOMI, Neck soft supple, trachea midline, nomocephalic/atraumatic CV: +S1/S2, RRR, no murmurs auscultated Respiratory: CTAB, no wheezes, rales, rhonchi GI: +bowel sounds x4, soft, compressible, mild TTP EXT: no c/c +2 pitting edema in the lower extremities bilaterally Neuro: CN II-XII grossly intact Psych: mood and affect were appropriate IVs and Medications Medications Reviewed: Medications were reviewed in detail Medications Current Medications Atorvastatin Calcium 40 mg HS PO Last administered on 04/30/16t 20:39; Admin Dose 40 MG; Start 04/29/16 at 21:00 Verapamil HCl 240 mg HS PO; Start 04/29/16 at 21:00; Stop 04/29/16 at 21:00; Status DC Lab and Diagnostics Result Diagram: 04/30/16 0813 04/29/16 0240 Cardiac Echo Impressions Echocardiogram Report Name: SALVADOR CASTRO MStudy Date : 04/29/2016 Height: 69 in Hospital Exam Location: [facility] Weight: 376 lb Gender: Male BSA: 2.7 m2 : 1940 Age: 75 yrs BP: 122/75 mmHg Reason For Study: Chest pain Ordering Physician: Performed By: Sudha Cardona Referring Physician: Vladislav Patel Interpretation Summary The study quality was technically limited. A contrast injection of Definity was performed to improve assessment of LV function. Left ventricular ejection fraction is estimated to be 45 +/- 5%. There is apical moderate hypokinesis. Procedure: A two-dimensional transthoracic echocardiogram with color flow and Doppler was performed. The study quality was technically limited. Comparison is made with the echocardiogram of 11-21-15. A contrast injection of Definity was performed to improve assessment of LV function. There were very limited images due to the patients body habitus. The patient was in normal sinus rhythm during the exam. Left Ventricle: The left ventricle is normal in size. Left ventricular ejection fraction is estimated to be 45 +/- 5%. There is apical moderate hypokinesis. Right Ventricle: The right ventricle grossly appears normal in size with probable normal systolic function. Atria: The left atrial size is normal. Mitral Valve: The mitral valve is grossly normal. Aortic Valve: The aortic valve is grossly normal. Tricuspid Valve: The tricuspid valve is not well visualized, but is grossly normal. There is trace tricuspid regurgitation. Pulmonic Valve: The pulmonic valve is not well visualized. Great Vessels: The aortic root is normal size. The ascending aorta is mildly enlarged. The inferior vena cava was not well visualized. Pericardium/ Pleura There is no pericardial effusion. MMode/2D Measurements & Calculations EPSS: 1.4 cm LA dimension: 3.8 cm AoV Openin.0 cm Ao root diam: 3.5 cm Aortic Jxn: 3.0 cm asc Aorta Diam: 3.9 cm Doppler Measurements & Calculations TR max vicki: 291.0 cm/sec TR max P.9 mmHg Electronically signed by: Harjit Ray on Reading Physician:04/29/2016 04:13 PM Assessment & Plan 75-year-old male who presents with chest pain that similar to prior [place], bare metal stent- LAD baseline walker. Chest pain that similar to prior [place], bare metal stent- LAD baseline walker. -- Serial troponins negative --Echo pending chest EF of 40-45% --lipid panel within normal limits --anticipate ordering stress nuc med showed a mid distal inferior wall defect and a follow-up echo was done today -- Continue aspirin 81 mg daily -- Nitroglycerin 0.4 mg when necessary chest pain Diabetes type II -- Continue Insulin sliding scale -- Accu-Cheks before meals and at bedtime Hypertension -- Continue hydrochlorothiazide 12.5 mg twice a day --Continue clonidine 0.3 twice a day -- Continue lisinopril 10 mg daily Morbid obesity with deconditioning -- PT eval and treat completed. Physical therapy recommends SNF placement for reconditioning. GERD secondary to Sliding hiatal hernia with mild erosive gastropathy chronic -- Continue Protonix 20 mg twice a day History of bipolar -- Continue Risperdal 1 mg daily -- Ativan 1 mg twice a day Chronic problems upon admission Obstructive sleep apnea Chronic back and bilateral knee pain due to arthritis Diet cardiac diabetic DVT prophylaxis lovenox Code full, per history DNR, confirm in the morning Disposition: The patient is currently medically stable however after physical therapy evaluation the patient would most likely benefit from a SNF. We will discharge the patient to a SNF facility once placement has been determined. VTE Mechanical Devices: Intermittant Pneumatic CD Resuscitation Status: CPR: Attempt Resuscitation Emi Lorenzo DO May 01, 2016 16:54
[2016-05-02] VITALS (8 sets, daily range): BP systolic 134–174; BP diastolic 68–84; PULSE 53–71; RESP 16–20; O2SAT 94–98
--- NOTE | 2016-05-02 00:31 | NUR ---
Pain Pt c/o right hip pain rated at a 7. Given one vicodin per MD orders Pt currently rates his pain at 0-1. Resting comfortably
[2016-05-02] MEDS: Sodium Chloride LOK Flush 10 mL Syringe IVFLUSH SCH ×2 (08:13→16:37)
[2016-05-02] MEDS: LORazepam 1 mg Tablet PO SCH ×2 (08:13→20:26)
[2016-05-02] MEDS: Pantoprazole 20 mg ER24 Tablet PO SCH ×2 (08:13→20:26)
[2016-05-02] MEDS: cloNIDine 0.1 mg Tablet PO SCH ×2 (08:13→20:26)
[2016-05-02] MEDS: risperiDONE 1 mg Tablet PO SCH (08:13)
[2016-05-02] MEDS: Insulin LISPRO 300 Unit/3 mL Inj SUBQ SCH ×4 (08:15→22:00)
--- NOTE | 2016-05-02 08:35 | NUR ---
Social Work: Initial Assessment Data: Pt is a 75 y/o male admitted for chest pain. Pt's PCP is Dr Patel, pt's insurance is [employer]. EMR reviewed, PT recommending SNF at this time. CLINICAL NURSING INSTRUCTOR met with pt at bedside, role explained. Pt states that he lives alone on [address] in a single story home where he uses a walker at baseline. Pt states that he has no history of HH but spent time at [facility]. Pt states he has a caregiver that comes to his home at least 2 times a week to assist with bathing. Pt states that he has no LTC or VA benefits and is not a caregiver. CLINICAL NURSING INSTRUCTOR gave pt SNF choice list and informed him that [facility] and [facility] are not accepting pt's right now. Pt states he [facility] CLINICAL NURSING INSTRUCTOR let pt know that if pt's insurance does not authorize the SNF stay that he would either have to pay privately or go home with HH and have 24/7 caregiving by either family and friends or paying privately. CLINICAL NURSING INSTRUCTOR gave access [facility]. CLINICAL NURSING INSTRUCTOR called to ask them to review this this morning. CLINICAL NURSING INSTRUCTOR will continue to follow. Pt's friend Shalini Miller called CLINICAL NURSING INSTRUCTOR, her phone number is [phone]. She states that she believes that pt cannot d/c home. CLINICAL NURSING INSTRUCTOR explained pt's options right now and that there will be more answers once the SNF's review pt. Assessment: Pt with some assistance at baseline. Walker. Plan: Pt will either d/c to SNF ([facility] and [facility] referred) or home with HH and caregiving. CLINICAL NURSING INSTRUCTOR will continue to follow. POONAM Ratliff Addendum: 05/02/16 at 0842 by WAYNE ANGUIANO Amended: Links added.
[2016-05-02 09:25] LABS: Mean Corpuscular Hemoglobin 27.8 pg (27.0-35.0); Mean Corpuscular Volume 88.8 fL (81-100)
--- NOTE | 2016-05-02 09:47 | NUR ---
Case Management D: Clinicals faxed to [facility]. Requesting authorized d/c to [facility]. Probable d/c today. Addendum: 05/02/16 at 1111 by KEN PANTOJA SS Call from Caridad at [facility] auth's. They are requesting another PT eval. They are also not going to give a decision until tomorrow after their MD reviews case. Trice LEVIN updated.
--- NOTE | 2016-05-02 10:44 | NUR ---
Morning Rounds Staffed patient case with Dr. Lorenzo and social work. Dr. Lorenzo wants patient to sit in a chair for his meals, will need to get bariatric chair and possibly a drew lift for transferring. rubber and plastics worker stated they are awaiting approval for SNF. Dr. Lorenzo stated patient can be discharged once SNF approval received.
[2016-05-02] MEDS: HYDROcodone-APAP 10-325 mg PO PRN ×2 (11:46→20:26)
--- NOTE | 2016-05-02 13:23 | PCM.PNMED ---
Subjective Date of Service May 02, 2016 Subjective Patient was examined at bedside today. Patient is currently very lethargic and unwilling to move at this time. Patient has been encouraged to sit up in a chair for his meals and to work with physical therapy. Patient denies any chest pain, shortness of breath, nausea, vomiting, diarrhea. Patient reports right lower extremity pain unchanged from baseline. Exam Vital Signs Vital Sign - Last Date Time Temp Pulse Resp B/P Pulse Ox O2 Delivery O2 Flow Rate FiO2 05/02/16 09:10 58 05/02/16 08:11 36.5 16 152/75 94 Room Air 05/01/16 23:31 2.00 Intake and Output 05/01/16 05/01/16 05/02/16 Cumulative From/Thru 15:00 23:00 07:00 04/28/16 14:04 - 05/02/16 06:42 Intake Total 2527 ml 800 ml 6557 ml Output Total 2400 ml 900 ml 82265 ml Balance 127 ml -100 ml -3493 ml Intake Oral 2527 ml 800 ml 6557 ml IV Total 0 ml 0 ml Output Urine Total 2400 ml 900 ml 21574 ml # Bowel Movements 1 1 Exam Physical Exam: GEN: Patient was awake, alert, responding appropriately to questions HEENT: PERRLA, EOMI, Neck soft supple, trachea midline, nomocephalic/atraumatic CV: +S1/S2, RRR, no murmurs auscultated Respiratory: CTAB, no wheezes, rales, rhonchi GI: +bowel sounds x4, soft, compressible, mild TTP : Landaverde in place EXT: no c/c +2 pitting edema in the lower extremities bilaterally, mild tenderness to palpation in the right lower extremity unchanged from baseline Neuro: CN II-XII grossly intact Psych: mood and affect were appropriate Lab and Diagnostics Result Diagram: 05/02/16 0845 04/29/16 0240 Cardiac Echo Impressions Echocardiogram Report Name: SALVADOR CASTRO MStudy Date : 04/29/2016 Height: 69 in Hospital Exam Location: [facility] Weight: 376 lb Gender: Male BSA: 2.7 m2 : 1940 Age: 75 yrs BP: 122/75 mmHg Reason For Study: Chest pain Ordering Physician: Performed By: Sudha Cardona Referring Physician: Vladislav Patel Interpretation Summary The study quality was technically limited. A contrast injection of Definity was performed to improve assessment of LV function. Left ventricular ejection fraction is estimated to be 45 +/- 5%. There is apical moderate hypokinesis. Procedure: A two-dimensional transthoracic echocardiogram with color flow and Doppler was performed. The study quality was technically limited. Comparison is made with the echocardiogram of 11-21-15. A contrast injection of Definity was performed to improve assessment of LV function. There were very limited images due to the patients body habitus. The patient was in normal sinus rhythm during the exam. Left Ventricle: The left ventricle is normal in size. Left ventricular ejection fraction is estimated to be 45 +/- 5%. There is apical moderate hypokinesis. Right Ventricle: The right ventricle grossly appears normal in size with probable normal systolic function. Atria: The left atrial size is normal. Mitral Valve: The mitral valve is grossly normal. Aortic Valve: The aortic valve is grossly normal. Tricuspid Valve: The tricuspid valve is not well visualized, but is grossly normal. There is trace tricuspid regurgitation. Pulmonic Valve: The pulmonic valve is not well visualized. Great Vessels: The aortic root is normal size. The ascending aorta is mildly enlarged. The inferior vena cava was not well visualized. Pericardium/ Pleura There is no pericardial effusion. MMode/2D Measurements & Calculations EPSS: 1.4 cm LA dimension: 3.8 cm AoV Openin.0 cm Ao root diam: 3.5 cm Aortic Jxn: 3.0 cm asc Aorta Diam: 3.9 cm Doppler Measurements & Calculations TR max vicki: 291.0 cm/sec TR max P.9 mmHg Electronically signed by: Harjit Ray on Reading Physician:04/29/2016 04:13 PM Assessment & Plan 75-year-old male who presents with chest pain that similar to prior GA, bare metal stent- LAD baseline walker. Chest pain that similar to prior GA, bare metal stent- LAD baseline walker. -- Serial troponins negative --Echo pending chest EF of 40-45% --lipid panel within normal limits --anticipate ordering stress nuc med showed a mid distal inferior wall defect and a follow-up echo was done today -- Continue aspirin 81 mg daily -- Nitroglycerin 0.4 mg when necessary chest pain Possible UTI -- UA results pending --We will treat as medically necessary Diabetes type II -- Continue Insulin sliding scale -- Accu-Cheks before meals and at bedtime Hypertension -- Continue hydrochlorothiazide 12.5 mg twice a day --Continue clonidine 0.3 twice a day -- Continue lisinopril 10 mg daily Morbid obesity with deconditioning -- PT eval and treat completed. Physical therapy recommends SNF placement for reconditioning. GERD secondary to Sliding hiatal hernia with mild erosive gastropathy chronic -- Continue Protonix 20 mg twice a day History of bipolar -- Continue Risperdal 1 mg daily -- Ativan 1 mg twice a day Chronic problems upon admission Obstructive sleep apnea Chronic back and bilateral knee pain due to arthritis Diet cardiac diabetic DVT prophylaxis lovenox Code full, per history DNR, confirm in the morning Disposition: The patient is currently medically stable however after physical therapy evaluation the patient would most likely benefit from a SNF. Today patient expressed some concerns about discontinuing his Landaverde. The patient states that he has some urinary incontinence and would prefer to keep the Landaverde , however this also may be due to the patient's deconditioning and he is not able to make it to the bathroom facilities on time. We will perform a UA on the patient for a possible UTI. VTE Mechanical Devices: Intermittant Pneumatic CD Resuscitation Status: CPR: Attempt Resuscitation Time spent Greater than 35 minutes Emi Lorenzo DO May 02, 2016 13:23
--- NOTE | 2016-05-02 14:40 | NUR ---
[facility] can accept pt pending insurance authorization. POONAM Ratliff
--- NOTE | 2016-05-02 14:41 | NUR ---
Social Work: Readiness for d/c Data: Pt is on day 4 of hospitalization. EMR reviewed. VARNISH BLENDER faxed clinicals to [facility] Arnoldo Rendon who called to say they were having a hard time getting into the electronic record. MILLIE RN notified VARNISH BLENDER that pt's insurance authorization process was started this morning and that they told her that PT would need to see pt again and that their MD would need to reevaluate in the morning. VARNISH BLENDER spoke with pt who states that he wants to go to SNF if at all possible. VARNISH BLENDER called [facility] to request they see pt to see if he qualifies for [facility] Medicaid. VARNISH BLENDER will continue to follow. Assessment: Pt with some caregiving at baseline. Plan: Pt will d/c likely tomorrow to either SNF ([facility] accepted, [facility] Arnoldo Rendon reviewing) pending insurance authorization, or pt will d/c home via POV with HH. VARNISH BLENDER will continue to follow. POONAM Ratliff
[2016-05-02 14:43] LABS: APPEARANCE,URINE CLOUDY (CLEAR,HAZY); COLOR,URINE STRAW (YELLOW); OCCULT BLOOD,URINE LARGE (NEGATIVE); UROBILINOGEN,URINE NORMAL (NORMAL)
--- NOTE | 2016-05-02 17:00 | NUR ---
Venkat Bed in Sitting Position with Meals Spoke with Dr. Lorenzo and told her a bariatric chair was not located, nor a drew lift, stated venkat bed is able to be moved into a chair like position, she stated she was good with patient using the venkat bed in chair position, wants him sitting up during meals and for about 30 min after meals.
[2016-05-03] VITALS (8 sets, daily range): BP systolic 137–169; BP diastolic 70–87; PULSE 57–82; RESP 17–19; O2SAT 93–98
[2016-05-03] MEDS: Sodium Chloride LOK Flush 10 mL Syringe IVFLUSH SCH ×3 (00:30→16:30)
--- NOTE | 2016-05-03 03:39 | NUR ---
Eager for Discharge Pt has been resting well tonight, minimal c/o pain. Pt has expressed desire to discharge, which seems possible w/ current plan to go to [facility] at this time.
[2016-05-03] MEDS: HYDROcodone-APAP 10-325 mg PO PRN ×3 (05:01→17:09)
[2016-05-03 07:50] LABS: Mean Corpuscular Hemoglobin 27.6 pg (27.0-35.0); Mean Corpuscular Volume 89.2 fL (81-100)
[2016-05-03] MEDS: Insulin LISPRO 300 Unit/3 mL Inj SUBQ SCH ×4 (08:00→21:38)
[2016-05-03] MEDS: Pantoprazole 20 mg ER24 Tablet PO SCH ×2 (08:30→21:38)
[2016-05-03] MEDS: cloNIDine 0.1 mg Tablet PO SCH ×2 (08:30→21:38)
[2016-05-03] MEDS: LORazepam 1 mg Tablet PO SCH ×2 (08:30→21:38)
[2016-05-03] MEDS: risperiDONE 1 mg Tablet PO SCH (08:32)
[2016-05-03] MEDS ORDERED: cefTRIAXone Inj 1,000 MG in IV Premix 1 EACH IV SCH (10:23)
--- NOTE | 2016-05-03 10:38 | NUR ---
Called and left message for Tania Dobson CM at [facility] [phone] asked her to review patient as soon as possible. Also called Nhi and she is having her director review this patient due to needs, they do not have a venkat bed available at this moment either. Nhi will call me when she has final acceptance/denial from her director. Let her know this is URGENT, has been charting medically stable since Tuesday. There is new note in chart this morning regarding plan to [facility] but patient has not been accepted yet. Updated LENS MATCHER via voicemail Addendum: 05/03/16 at 1119 by CHAVO BULLARD CM Tania Dobson has approved transfer for SNF today. Updated LENS MATCHER Addendum: 05/03/16 at 1136 by CHAVO BULLARD CM [facility] is unable to accept due to bariatric needs. Gave access and faxed facesheet to [facility] this is only other local SNF contracted with [facility]. Updated LENS MATCHER
[2016-05-03] MEDS ORDERED: D5W IV SCH ×2 (10:52)
[2016-05-03] MEDS ORDERED: CEFTRIAXONE 1000 MG/50 ML IV SCH ×2 (10:52)
--- NOTE | 2016-05-03 11:12 | NUR ---
Social Work Continued Discharge Planning: Plan is SNF placement pending auth from [facility]. Referrals sent to [facility] and [facility]. [facility] following for possible acceptance and venkat bed needs. ALCIDES contacted [facility] and spoke to rep Walker who is following and to contact ALCIDES back to determine barri bed status. UR specialist following for [facility] auth. Patient and family updated and in agreement to plan of care. SW to finalize transfer, pending facility acceptance/bed status and insurance auth. PLAN: Transfer today to SNF, pending bed availability and insurance auth. ALCIDES following Monty Neal Addendum: 05/04/16 at 0810 by ABBEY NEAL Auth obtained. Patient and family aware and patient accepted. UR specialist to coordinate transport. No other needs Monty Neal
--- NOTE | 2016-05-03 11:25 | NUR ---
miles miles dc'd w/o complication at 1115. Educated pt on reason for dc and need to use urinal. PT to come back this afternoon with appropriate walker for pt weight. urinal at pt bedside. Addendum: 05/03/16 at 1302 by WILFRID HICKEY RN pt able to void >100ml post miles removal.
[2016-05-03] MEDS ORDERED: 0.9% Sodium Chloride 100 ML ONE (12:00)
--- NOTE | 2016-05-03 13:16 | NUR ---
[facility], [facility] and [facility] and [facility] are all unable to accept. [facility] is currently in stop placement and is not taking any new admits. Updated Caridad at [facility] and asked for consideration to have [facility] take patient who is ready for discharge. Addendum: 05/03/16 at 1508 by CHAVO BULLARD CM Caridad at [facility] approved patient to go to [facility] and I spoke with Aaron at [facility] and he is arranging transport. He is not certain on time so he will call me back with confirmation on time. Updated INSTRUMENT LENS GRINDER APPRENTICE
--- NOTE | 2016-05-03 14:45 | PCM.DIMED ---
Discharge Instructions Date of Service May 03, 2016 Dates of Hospitalization Apr 28, 2016 at 17:19 Discharge Diagnosis Discharge Diagnosis Chest pain UTI Diabetes type II Hypertension Morbid obesity with deconditioning GERD secondary to Sliding hiatal hernia with mild erosive gastropathy chronic History of bipolar Chronic problems upon admission Obstructive sleep apnea Chronic back and bilateral knee pain due to arthritis Diet Heart Healthy, Diabetic Activity No restrictions Call your provider Fever or Chills, Shortness of breath, Chest pain, Excessive diarrhea Patient Instructions You have been diagnosed with a UTI please take all her medication and do not see any pills. Please avoid the use of any Landaverde catheters as this would be a potential source of infection and recurrent UTI. Follow-up with PCP in: 1 week Emi Lorenzo DO May 03, 2016 14:44
[2016-05-03] MEDS ORDERED: CIPR-198 PO (14:46)
--- NOTE | 2016-05-03 14:56 | PCM.DC.MED ---
Discharge Summary Date of Service May 03, 2016 Dates of Hospitalization Date of Hospital Admission Apr 28, 2016 at 17:19 Date of Discharge: May 03, 2016 Providers: Admitting Physician: Amita Haley MD Primary Care Physician: Vladislav Patel DO Attending Physician: Amita Haley MD Diagnosis at Time of Discharge Diagnosis at Time of Discharge Chest pain UTI Diabetes type II Hypertension Morbid obesity with deconditioning GERD secondary to Sliding hiatal hernia with mild erosive gastropathy chronic History of bipolar Chronic problems upon admission Obstructive sleep apnea Chronic back and bilateral knee pain due to arthritis Procedures Cardiac Echo Impression Echocardiogram Report Name: SALVADOR CASTRO MStudy Date : 04/29/2016 Height: 69 in Hospital Exam Location: [facility] Weight: 376 lb Gender: Male BSA: 2.7 m2 : 1940 Age: 75 yrs BP: 122/75 mmHg Reason For Study: Chest pain Ordering Physician: Performed By: Sudha Cardona Referring Physician: Vladislav Patel Interpretation Summary The study quality was technically limited. A contrast injection of Definity was performed to improve assessment of LV function. Left ventricular ejection fraction is estimated to be 45 +/- 5%. There is apical moderate hypokinesis. Procedure: A two-dimensional transthoracic echocardiogram with color flow and Doppler was performed. The study quality was technically limited. Comparison is made with the echocardiogram of 11-21-15. A contrast injection of Definity was performed to improve assessment of LV function. There were very limited images due to the patients body habitus. The patient was in normal sinus rhythm during the exam. Left Ventricle: The left ventricle is normal in size. Left ventricular ejection fraction is estimated to be 45 +/- 5%. There is apical moderate hypokinesis. Right Ventricle: The right ventricle grossly appears normal in size with probable normal systolic function. Atria: The left atrial size is normal. Mitral Valve: The mitral valve is grossly normal. Aortic Valve: The aortic valve is grossly normal. Tricuspid Valve: The tricuspid valve is not well visualized, but is grossly normal. There is trace tricuspid regurgitation. Pulmonic Valve: The pulmonic valve is not well visualized. Great Vessels: The aortic root is normal size. The ascending aorta is mildly enlarged. The inferior vena cava was not well visualized. Pericardium/ Pleura There is no pericardial effusion. MMode/2D Measurements & Calculations EPSS: 1.4 cm LA dimension: 3.8 cm AoV Openin.0 cm Ao root diam: 3.5 cm Aortic Jxn: 3.0 cm asc Aorta Diam: 3.9 cm Doppler Measurements & Calculations TR max vicki: 291.0 cm/sec TR max P.9 mmHg Electronically signed by: Harjit Ray on Reading Physician:04/29/2016 04:13 PM Brief History 75-year-old male who presents with chest pain that similar to prior IN, bare metal stent- LAD baseline walker. Hospital Course 75-year-old male who presents with chest pain that similar to prior IN, bare metal stent- LAD baseline walker. Patient was admitted for chest pain rule out IN. The patient has a prior history of IN. The patient was worked up and found to have serial troponins were negative. Echo showed the patient has an EF of 40-45%, the patient's lipid panel was within normal limits, the patient did have a nuclear stress test which showed a mildly reversible anterior defect, fixed apical defect, some of it could be due attenuation artifact, even patient's body habitus. Prone images, however, could not be obtained. Overall this is an intermediate risk stress test. The patient was cleared to go home however the patient stated that he was having difficulty with his mobility and needed a physical therapy workup. Physical therapy noted that the patient did have very limited mobility and recommended SNF placement. The patient is very reluctant to move and to do for himself and upon admission he requested that a Landaverde be put in place as sometimes he does not know when he is going to urinate on himself. It was explained to the patient yesterday.long-term Landaverde insertion has increased risk of bacterial infection. The patient stated that he understood the risks and prefer not to have the Landaverde removed. A urine culture was obtained as the patient was complaining of urinary incontinence and the patient was found to have a urinary tract infection. The patient received 1 dose of Rocephin while inpatient and is being sent home on a three-day course of Cipro 500 mg twice a day. The Landaverde catheter was removed and a new one was not placed. It is recommended that the patient go to the SNF and be treated for his deconditioned state. A Landaverde catheter is not recommended for this patient and should be avoided in this patient. The patient needs to be encouraged to participate in physical therapy and reconditioning so that he is able to return home safely. Patient is being sent home in stable condition. The patient's chest pain has resolved and there are no clinical indications suggesting an IN. Exam Vital Signs (Last) Date Time Temp Pulse Resp B/P Pulse Ox O2 Delivery O2 Flow Rate FiO2 05/03/16 12:17 36.3 67 18 137/87 94 Nasal Cannula 2.00 Test 04/28/16 15:16 04/29/16 02:40 05/02/16 14:21 05/03/16 06:22 Prothrombin Time 10.2sec (8.1-12.5) Prothromb Time International Ratio 0.95ratio Activated Partial Thromboplast Time 26.4sec (22.8-33.0) Magnesium Level 1.7mg/dL (1.6-2.6) Total Bilirubin 0.3mg/dL (0.0-1.2) Aspartate Amino Transf (AST/SGOT) 21U/L (0-50) Alanine Aminotransferase (ALT/SGPT) 24U/L (0-44) Alkaline Phosphatase 58U/L (25-160) Pro-B-Type Natriuretic Peptide 262.8pg/mL (0-486) Total Protein 6.5g/dL (6.4-8.4) Albumin 3.5g/dL (3.4-5.0) Hold Perkins Top Tube Received (Received) Neutrophils (%) (Auto) 71.1% (40-74) Lymphocytes (%) (Auto) 14.6% (14-46) Monocytes (%) (Auto) 10.4% (4-12) Eosinophils (%) (Auto) 3.5% (0-5) Basophils (%) (Auto) 0.2% (0-3) Total Creatine Kinase 28U/L (21-232) Creatine Kinase MB 1.7ng/mL (0.0-10.4) Creatine Kinase MB % % (0.0-5.0) Troponin T 0.010ug/L (0.0-0.011) Triglycerides Level 123mg/dL (0-149) Cholesterol Level 88mg/dL (100-199) LDL Cholesterol, Calculated 27.400mg/dL (0-99) VLDL Cholesterol 24.600mg/dL HDL Cholesterol 36mg/dL (>39) Cholesterol/HDL Ratio 2.44 (0.0-4.4) Urine Color Straw (YELLOW) Urine Appearance Cloudy (CLEAR,HAZY) Urine pH 7.0 (5.0-8.0) Urine Specific Frost 1.015 (1.003-1.035) Urine Protein Negativemg/dL (NEG,TRACE) Urine Glucose (UA) 500mg/dL (NEGATIVE) Urine Ketones Negativemg/dL (NEGATIVE) Urine Occult Blood Large (NEGATIVE) Urine Nitrite Positive (NEGATIVE) Urine Bilirubin Negative (NEGATIVE) Urine Urobilinogen Normalmg/dL (NORMAL) Urine Leukocyte Esterase Small (NEGATIVE) Urine RBC 11-50/hpf (0-2) Urine WBC 11-50/hpf (0-5) Urine Epithelial Cells Few/hpf (NONE-MOD) Urine Crystals None seen (NONE SEEN) Urine Bacteria Many/hpf (NONE-FEW) Urine Hyaline Casts None/lpf (NONE) Urine Granular Casts None seen (NONE SEEN) Urine Waxy Casts None seen (NONE SEEN) Urine Red Blood Cell Casts None seen (NONE SEEN) Urine White Blood Cell Casts None seen (NONE SEEN) Urine Mucus None seen (None Seen) Urine Trichomonas None seen (NONE SEEN) Urine Yeast None (NONE SEEN) Urinalysis Comment None Urine Culture Reflexed Indicated White Blood Count 10.6th/mm3 (3.8-10.1) Red Blood Count 4.09mil/mm3 (4.40-5.80) Hemoglobin 11.3g/dL (13.8-17.2) Hematocrit 36.5% (41.0-50.0) Mean Corpuscular Volume 89.2fL (81-100) Mean Corpuscular Hemoglobin 27.6pg (27.0-35.0) Mean Corpuscular Hemoglobin Concent 31.0% (32.0-37.0) Red Cell Distribution Width 15.2% (12.3-15.4) Platelet Count 260bil/L (150-400) Sodium Level 139mEq/L (134-144) Potassium Level 4.3mEq/L (3.5-5.2) Chloride Level 98mEq/L (97-108) Carbon Dioxide Level 28mmol/L (18-29) Blood Urea Nitrogen 23mg/dL (8-27) Creatinine 0.78mg/dL (0.76-1.27) Estimat Glomerular Filtration Rate 103mL/min (>59) Glucose Level 159mg/dL (60-99) Calcium Level 9.1mg/dL (8.5-10.1) Discharge Medications Discharge Medications Atorvastatin Calcium (Atorvastatin Calcium) 40 Mg Tablet 40 MG PO HS (Reported) Ciprofloxacin (Ciprofloxacin) 500 Mg Tablet 500 MG PO BID Prescribed by: BAIRON OSEGUERA DO Clonidine (Clonidine) 0.3 Mg Tablet 0.3 MG PO BID (Reported) Clopidogrel Bisulfate (Plavix) 75 Mg Tablet 75 MG PO DAILY Prescribed by: ELLIOT MOORE MD Cod Liver Oil/Zinc Oxide (Desitin Diaper Rash 40% Paste) 28 Gm Paste..g. 1 APPLIC TOP PRN (Reported) Hydrochlorothiazide (Hydrochlorothiazide) 12.5 Mg Tablet 12.5 MG PO DAILY ( Reported) Lisinopril (Lisinopril) 10 Mg Tablet 10 MG PO DAILY (Reported) Lorazepam (Lorazepam) 1 Mg Tablet 1 MG PO BID Prescribed by: CHRISTEL PINEDA MD Meloxicam (Meloxicam) 15 Mg Tablet 15 MG PO QAM (Reported) Metformin (Metformin) 500 Mg Tablet 1,000 MG PO BIDWM (Reported) Metoprolol Succinate ER (Metoprolol Succinate ER) 25 Mg Tab.er.24h 25 MG PO DAILY (Reported) Multivitamin (Multivitamins) 1 Each Capsule 1 EACH PO DAILY (Reported) Naproxen (Naproxen) 500 Mg Tab 500 MG PO BID (Reported) Oxybutynin Chloride (Oxybutynin Chloride) 5 Mg Tablet 5 MG PO BID (Reported) Risperidone (Risperidone) 1 Mg Tablet 1 MG PO DAILY Prescribed by: CHRISTEL PINEDA MD Verapamil ER (Verapamil ER) 180 Mg Tablet.er 180 MG PO QPM (Reported) Verapamil ER (Verapamil ER) 240 Mg Cap24h.pel 240 MG PO QPM (Reported) As needed Hydrocodone-Acetaminophen 10-325 mg (Hydrocodone-Acetaminophen 10-325 mg) 1 Each Tablet 1 EACH PO TID PRN PRN For Pain (Reported) Nitroglycerin SL (Nitrostat) 0.4 Mg Subl 0.4 MG SL Q5MIN PRN PRN For Chest Pain Prescribed by: ELLIOT MOORE MD Followup Plan Discharge Diet: Heart Healthy, Diabetic Discharge Activity: No restrictions Patient Instructions You have been diagnosed with a UTI please take all her medication and do not see any pills. Please avoid the use of any Landaverde catheters as this would be a potential source of infection and recurrent UTI. Follow-up with PCP in: 1 week copies to: Vladislav Patel Precious L DO May 03, 2016 14:56
--- NOTE | 2016-05-03 15:56 | NUR ---
Handoff report called to Jennifer nurse with [facility] at [phone].
[2016-05-03] MEDS ORDERED: HYDR-3740 PO (15:57)
--- NOTE | 2016-05-03 16:52 | NUR ---
Faxed orders to [facility] and they will be transporting at [phone]. Copied orders and placed on chart. Updated RN and CAUSTIC ROOM OPERATOR
--- NOTE | 2016-05-03 17:50 | NUR ---
Social Work Note: Continued Discharge Planning Data& Assessment: SW received phone call from Hospital Verification Engineer regarding pt and was notified that [facility] is saying they are unable to accept pt tonight as planned. ALCIDES spoke with Leticia SCHULTZ from [facility] who explained they the DC paperwork that they have been faxed does not appear to be current. ALCIDES refaxed DC paperwork and offered to contact MD to sign paperwork to faxed over to the facility to confirm that they orders are indeed current as of today 05/03/2016. [facility] stated that it was too late in the afternoon to accept pt at their facility. notified, MD also spoke with ANTOINE Kelly at [facility] herself. [facility] confirmed they are not able to accept pt tonight. ALCIDES notified pt RN in MOC and UR RN. All updated. SW to follow up with facility and MD tomorrow. SW to continue to follow. Plan:Pt is medically ready to discharge at this time. Anticipated discharge to [facility] tomorrow 05/04/2016 after coordination with facility. MD updated. ALCIDES notified pt RN in MOC and UR RN. All updated. SW to follow up with facility and MD tomorrow. SW to continue to follow. POONAM Xie
--- NOTE | 2016-05-03 18:38 | NUR ---
discharge 1829. planned d/c this evening did not occur as [facility] was not satisfied with discharge paperwork provided. MD coley. To keep pt overnight. Md garcia paged to determine need to restart IV/tele. Pt stable and back in bed. 3 person assist out of WC back to bed. Addendum: 05/03/16 at 1847 by WILFRID HICKEY RN Per hospitalist, no need to restart IV or tele.
[2016-05-04] MEDS: HYDROcodone-APAP 10-325 mg PO PRN ×2 (00:19→08:08)
[2016-05-04] MEDS: Sodium Chloride LOK Flush 10 mL Syringe IVFLUSH SCH ×2 (00:30→08:06)
--- NOTE | 2016-05-04 02:28 | NUR ---
Pain / Urination Pt requested pain med at midnight, educated patient about med frequency and patient agrees and is compliant with med schedule. Pt has been urinating w/o any incontinence with the urinal.
[2016-05-04 05:04] VITALS: BP 139/87; PULSE 61; RESP 20; O2SAT 94
[2016-05-04 07:45] VITALS: BP 157/88; PULSE 67; RESP 18; O2SAT 98
[2016-05-04] MEDS: Insulin LISPRO 300 Unit/3 mL Inj SUBQ SCH (08:06)
[2016-05-04] MEDS: risperiDONE 1 mg Tablet PO SCH (08:06)
[2016-05-04] MEDS: cloNIDine 0.1 mg Tablet PO SCH (08:06)
[2016-05-04] MEDS: LORazepam 1 mg Tablet PO SCH (08:07)
[2016-05-04] MEDS: Pantoprazole 20 mg ER24 Tablet PO SCH (08:07)
--- NOTE | 2016-05-04 08:31 | NUR ---
Spoke with Aaron physician executive at [facility] [phone], he was under the impression that the orders were dated 04/28/16. PHARMACIST ASSISTANT and my self double checked dates and orders were written yesterday on 05/03/16. He is checking in with his nurse and will be calling me back. I asked for a 10 am knot picker cloth, patient is medically stable and signed correct orders were in last night. Updated PHARMACIST ASSISTANT and PHARMACIST ASSISTANT Hoop Coiling Machine Operator Addendum: 05/04/16 at 1126 by CHAVO BULLARD CM Aaron arranged transport for 1030AM [facility] updated and spoke with PHARMACIST ASSISTANT after rounds.
--- NOTE | 2016-05-04 09:38 | NUR ---
Attempted to Call Report to [facility] Attempted to call report to [facility], but was told the RN who will be receiving patient will need to return my call. I also tried to confirm 1030 am car pick up driver for patient, but was told that is not known, will have RN verify when she returns my call.
--- NOTE | 2016-05-04 10:29 | NUR ---
Handoff Report Called and spoke with Sylvie at [facility], gave handoff report.
--- NOTE | 2016-05-04 10:42 | NUR ---
Morning Rounds Staffed patient's case with Dr. Lorenzo, social work and case management. Plan is still to discharge patient to [facility] today, but social work was not able to confirm the time, as I was told 1030am.
--- NOTE | 2016-05-04 11:30 | NUR ---
Discharge Note Patient's belongings were gathered to transfer with him to [facility]. Transported via appropriate wheelchair and cabulance to [facility] at this time.
--- NOTE | 2016-05-04 14:08 | NUR ---
Social Work-discharge: Data:EMR reviewed. Pt is on day 5 of hospitalization for Chest pain per H&P. pt is medically stable to discharge to [facility] today. authorization has been obtained. UR specialist faxed orders and created packet and set up transport for 1030. Family notified. All updated and agreeable to plan. Assessment:Pt to benefit from SNF. Plan:Pt to discharge to [facility] today via cabulance at 1030. authorization has been obtained. RN,UC,pt/family, and [facility] all updated and agreeable to plan. POONAM Garcia
== END 2016-05-04 11:30 ==
LOC: EDBD 14:04 → EDUNIT# 14:04 → SED 14:04 → MOC 17:19
PROVIDERS: ADMIT Urology; ATTEND Urology
DX: R07.9 Chest pain, unspecified (principal); N39.0 Urinary tract infection, site not specified; B96.5 Pseudomonas (aeruginosa) (mallei) (pseudomallei) as the cause of diseases classified elsewhere; E11.9 Type 2 diabetes mellitus without complications; I10 Essential (primary) hypertension; E66.01 Morbid (severe) obesity due to excess calories; K21.9 Gastro-esophageal reflux disease without esophagitis; K44.9 Diaphragmatic hernia without obstruction or gangrene; M19.90 Unspecified osteoarthritis, unspecified site; K29.50 Unspecified chronic gastritis without bleeding; I25.10 Atherosclerotic heart disease of native coronary artery without angina pectoris; E78.5 Hyperlipidemia, unspecified; G47.33 Obstructive sleep apnea (adult) (pediatric); Z68.43 Body mass index [BMI] 50.0-59.9, adult; Z79.84 Long term (current) use of oral hypoglycemic drugs; Z95.5 Presence of coronary angioplasty implant and graft; F31.9 Bipolar disorder, unspecified
CPT/HCPCS: 36415; 51702; 71010; 78452; 80048; 80053; 80061; 81000; 82550; 82553; 83036; 83735; 83880; 84484; 85025; 85027; 85610; 85730; 87077; 87086; 87088; 87186; 93005; 93017; 96365; 96375; 97110; 97162; 99285; A9502; C8929; G0378; J0696; J1815; J2270; J2785; Q9957

== ENCOUNTER 2016-07-29 08:12 | Inpatient (IN) | payer MEDICARE ==
[~2016-07-29] VITALS: Ht 175.3 cm; Wt 171.5 kg
[2016-07-29] VITALS (8 sets, daily range): BP systolic 100–156; BP diastolic 60–81; PULSE 72–97; RESP 16–22; O2SAT 92–97
[~2016-07-29 08:12] MED LIST changes: +CIPR-198 PO; +COD28PAS TOP; +HYDR-3740 PO; -HYDR-4003 PO; -LINE600T2 PO; +METO25TA99 PO; +NPR500T PO
--- NOTE | 2016-07-29 08:33 | ED.REPORT ---
HPI-General Illness Date of Service Jul 29, 2016 ED Provider: The patient is a 75 year old male with history of diabetes mellitus type II, hypertension, hyperlipidemia, coronary artery disease, and chronic back and knee pain, who presents to the emergency department complaining of generalized weakness. The patient states he was unable to get out of his chair this morning. He has also felt lightheaded and dizzy. Yesterday he was up and moving around normally. He is chronically short of breath. He denies fever, chills, cough, vomiting, diarrhea, dysuria, hematuria, abdominal pain, chest pain, headache or focal weakness. Nursing Notes Stated Complaint: WEAKNESS Chief Complaint: General Complaint Nursing Notes Reviewed: Yes Allergies: Coded Allergies: penicillin G (Verified Allergy, Intermediate, rash, 07/29/16) Scheduled Atorvastatin Calcium (Atorvastatin Calcium) 40 Mg Tablet 40 MG PO HS Ciprofloxacin (Ciprofloxacin) 500 Mg Tablet 500 MG PO BID Clonidine (Clonidine) 0.3 Mg Tablet 0.3 MG PO BID Clopidogrel Bisulfate (Plavix) 75 Mg Tablet 75 MG PO DAILY Cod Liver Oil/Zinc Oxide (Desitin Diaper Rash 40% Paste) 28 Gm Paste..g. 1 APPLIC TOP PRN Hydrochlorothiazide (Hydrochlorothiazide) 12.5 Mg Tablet 12.5 MG PO DAILY Lisinopril (Lisinopril) 10 Mg Tablet 10 MG PO DAILY Lorazepam (Lorazepam) 1 Mg Tablet 1 MG PO BID Meloxicam (Meloxicam) 15 Mg Tablet 15 MG PO QAM Metformin (Metformin) 500 Mg Tablet 1,000 MG PO BIDWM Metoprolol Succinate ER (Metoprolol Succinate ER) 25 Mg Tab.er.24h 25 MG PO DAILY Multivitamin (Multivitamins) 1 Each Capsule 1 EACH PO DAILY Naproxen (Naproxen) 500 Mg Tab 500 MG PO BID Oxybutynin Chloride (Oxybutynin Chloride) 5 Mg Tablet 5 MG PO BID Risperidone (Risperidone) 1 Mg Tablet 1 MG PO DAILY Verapamil ER (Verapamil ER) 180 Mg Tablet.er 180 MG PO QPM Verapamil ER (Verapamil ER) 240 Mg Cap24h.pel 240 MG PO QPM Scheduled PRN Hydrocodone-Acetaminophen 10-325 mg (Hydrocodone-Acetaminophen 10-325 mg) 1 Each Tablet 1 EACH PO TID PRN PRN For Pain Hydrocodone-Acetaminophen 10-325 mg (Hydrocodone-Acetaminophen 10-325 mg) 1 Each Tablet 1 TABLET PO TID PRN PRN For Pain Nitroglycerin SL (Nitrostat) 0.4 Mg Subl 0.4 MG SL Q5MIN PRN PRN For Chest Pain General Time Seen by MD: 08:33 Chief Complaint Weakness Hx Obtained From: Patient, EMS Arrived By: Ambulance Sudden in Onset?: No Onset Occurred: 1 - 4 hours ago Symptom Duration: Since onset Severity: Current: No pain currently Severity: Maximum: No pain Recent Healthcare: No recent doctor visit, No recent hospitalization Similar Sx Previous: No Past Medical History Past Medical History Obstructive sleep apnea Chronic back and bilateral knee pain due to arthritis Morbid obesity Coronary artery disease, and N-STEMI September 2014 Type II diabetes History of bipolar Reports: Hyperlipidemia, Hypertension Past Surgical History Cardiac cath September 2014, bare mental stent placed in the left anterior descending EGD September 2014, small sliding hiatal hernia, mild erosive gastropathy Colonoscopy September 2014, diminutive colon polyps Family History Noncontributory Smoking History Former Smoker Social History Lives with a roommate Alcohol Use: Denies alcohol use Drug Use: Denies drug use Other Social History: Local resident Ambulatory Status Walker Review of Systems Full Review of Systems Constitutional: Reports: Weakness - generalized, Denies: Chills, Fever Respiratory: Reports: Shortness of breath (chronic, unchanged), Denies: Non-productive cough Cardiovascular: Denies: Chest pain GI: Denies: Abdominal pain, Diarrhea, Vomiting Male: Denies Dysuria, Denies Hematuria Neurologic: Reports: Dizziness, Lightheaded, Problem walking, Weakness, Denies: Focal weakness, Headache, Numbness Complete sys rev & neg: except as marked. Physical Exam Vital Signs Vital Signs Date Time Temp Pulse Resp B/P Pulse Ox O2 Delivery O2 Flow Rate FiO2 07/29/16 11:04 72 20 134/69 97 Room Air 07/29/16 08:29 36.5 97 20 125/75 92 Room Air Initial VS: Reviewed Head / Eyes: Atraumatic, Normocephalic, PERRL ENT: Mucous membranes moist, Conjunctiva normal, No scleral icterus Neck: Supple, Non-tender, Full range of motion Extremities: Vascular intact, Neuro intact, No tenderness Skin: Warm, Dry, No cyanosis Neurologic: Alert, Oriented, Nonfocal Psychiatric: Mood/affect normal, Behavior normal, Normal thought content General/Constitutional: Awake, Alert, Cooperative Respiratory / Chest: Breath sounds NL, Breath sounds = bilat, No respiratory distress, No rales, No rhonchi, No wheezing, No chest tenderness, No chest wall deformity Cardiovascular: Heart rate NL, Regular rhythm, Heart sounds NL, No gallop, No murmurs, No rubs, Cap refill not delayed, Peripheral circulation NL Abdomen: Atraumatic, Soft, Non-tender, No guarding, No rebound, BS normoactive , No distention, No hernia, No palpable mass, No pulsatile mass Lower Extremity / Pelvis / MS: Neurologic intact, Vascular intact Trace lower extremity edema. Interpretation & Diagnostics Lab Results Interpretation Result Diagram: 07/29/16 0845 07/29/16 0845 Test 07/29/16 08:45 07/29/16 10:59 07/29/16 11:38 White Blood Count 19.9th/mm3 (3.8-10.1) Red Blood Count 3.95mil/mm3 (4.40-5.80) Hemoglobin 11.3g/dL (13.8-17.2) Hematocrit 36.2% (41.0-50.0) Mean Corpuscular Volume 91.6fL (81-100) Mean Corpuscular Hemoglobin 28.6pg (27.0-35.0) Mean Corpuscular Hemoglobin Concent 31.2% (32.0-37.0) Red Cell Distribution Width 14.6% (12.3-15.4) Platelet Count 265bil/L (150-400) Neutrophils (%) (Auto) 85.0% (40-74) Lymphocytes (%) (Auto) 3.1% (14-46) Monocytes (%) (Auto) 11.4% (4-12) Eosinophils (%) (Auto) 0.1% (0-5) Basophils (%) (Auto) 0.1% (0-3) Prothrombin Time 10.7sec (8.1-12.5) Prothromb Time International Ratio 1.00ratio Sodium Level 138mEq/L (134-144) Potassium Level 4.1mEq/L (3.5-5.2) Chloride Level 96mEq/L (97-108) Carbon Dioxide Level 26mmol/L (18-29) Blood Urea Nitrogen 26mg/dL (8-27) Creatinine 0.91mg/dL (0.76-1.27) Estimat Glomerular Filtration Rate 87mL/min (>59) Glucose Level 164mg/dL (60-99) Lactic Acid Level 2.6mmol/L (0.4-2.0) Calcium Level 9.2mg/dL (8.5-10.1) Magnesium Level 1.2mg/dL (1.6-2.6) Total Bilirubin 0.6mg/dL (0.0-1.2) Aspartate Amino Transf (AST/SGOT) 13U/L (0-50) Alanine Aminotransferase (ALT/SGPT) 21U/L (0-44) Alkaline Phosphatase 58U/L (25-160) Troponin T 0.010ug/L (0.0-0.011) Pro-B-Type Natriuretic Peptide 734.1pg/mL (0-486) Total Protein 6.1g/dL (6.4-8.4) Albumin 3.4g/dL (3.4-5.0) Lipase 14U/L (13-60) ECG Interpretation ECG Interpretation: Sinus rhythm with a rate of 94 Time: 08:48 Interpreted by: ED physician X-Ray Chest Interpretation Chest Xray Interpretation: IMPRESSION: Mild cardiomegaly. No definitive CHF. Dictated by: Cely Jurado M.D. on 07/29/2016 at 9:10 Interpretation / Wet Read by: Interpret - Radiologist Re-Eval/Medical Decision Med Decision/Clinical Course The patient appears to have sepsis but no source of the sepsis is yet identified. We have given IV fluid and drawn blood cultures and urine culture etc. Empiric Rocephin was given, Zosyn would have been given except for he is pen allergic. I will leave the rest of the empiric antibiotic prescribing to the hospitalist service. Vital signs have always been normal. Source of Hx: Old records, EMS Time of Eval: 11:00 Re-Evaluation/Progress Note: Discussed plan for admission. All questions were addressed. Consultation : Referral / Consult Name: Nessa Campbell MD Consulted With: Hospitalist Call Returned at: 11:12 Equipment Maintenance Technician: Will see patient, Agrees with eval, Agrees with plan, Accepts admit Counseled Regarding: Diagnosis, Lab results, Need for admission Discharge & Departure Primary Impression: Sepsis Sepsis type: sepsis due to unspecified organism Qualified Code: A41.9 - Sepsis, unspecified organism Disposition: ADMITTED TO HOSPITAL Discharge Condition All VS Reviewed: Yes Condition: Stable Referrals: Vladislav Patel DO (PCP) Merary Attestation Portions of this note were transcribed by Juhi Stevens. I, Dr. Goldman personally performed the history, physical exam and medical decision-making; I reviewed and confirmed the accuracy of the information in the transcribed note. Signed by: Merary Hill, 07/29/2016 at 1118. copies to: Vladislav Patel Kirk H MD Jul 29, 2016 08:33 Juhi Stevens Jul 29, 2016 08:41
[2016-07-29 08:53] LABS: BASOPHILS % (AUTO) 0.1 % (0-3); EOSINOPHILS % (AUTO) 0.1 % (0-5); MONOCYTES % (AUTO) 11.4 % (4-12); Mean Corpuscular Hemoglobin 28.6 pg (27.0-35.0); Mean Corpuscular Volume 91.6 fL (81-100); Platelet Count 265 bil/L (150-400)
--- NOTE | 2016-07-29 09:17 | DRSVH ---
PROCEDURE: X-RAY CHEST ONE VIEW, PORTABLE ([id number]) INDICATIONS: SHORTNESS OF BREATH TECHNIQUE: One view of the chest was acquired. COMPARISON: [facility], CR, XR CHEST 1VW (PORTABLE), 04/28/2016, 14:23. FINDINGS: Surgical changes and devices: None. Lungs and pleura: No pleural effusions or pneumothorax. Lungs are clear. Mild prominence of pulmon tamiko vascularity but no confluent pulmonary edema. Mediastinum: Mediastinal contours appear normal. Heart size is mildly increased. Bones and chest wall: No suspicious bony lesions. Overlying soft tissues appear unremarkable. IMPRESSION: Mild cardiomegaly. No definitive CHF. Dictated by: Cely Jurado M.D. on 07/29/2016 at 9:10 Approved by: Cely Jurado M.D. on 07/29/2016 at 9:15
[2016-07-29 09:24] LABS: TROPONIN T 0.01 ug/L (0.0-0.011)
[2016-07-29] MEDS ORDERED: 0.9% Sodium Chloride 1,000 ML IV ONE (09:43)
[2016-07-29] MEDS ORDERED: cefTRIAXone Inj 2,000 MG in Dextrose 5% Minibag Plus 50 ML IV ONE (09:45)
[2016-07-29 09:51] LABS: Magnesium 1.2 mg/dL (1.6-2.6)
[2016-07-29] MEDS ORDERED: Magnesium Sulf 2 Gm/50mL Water 2 GM in IV Premix 1 EACH IV ONE ×2 (10:20→16:20)
[2016-07-29] MEDS ORDERED: Ondansetron 2 mg/mL 2 mL Inj IVPUSH PRN (11:10)
[2016-07-29] MEDS ORDERED: Glucose 40% Oral Gel 15 Gm Tube PO PRN (11:15)
[2016-07-29] MEDS ORDERED: CLOP75TA28 PO (13:24)
[2016-07-29] MEDS ORDERED: VERA240T97 PO (13:24)
[2016-07-29] MEDS ORDERED: PRAM0.256 PO (13:24)
[2016-07-29] MEDS ORDERED: HYDR12.5 PO (13:31)
[2016-07-29] MEDS ORDERED: HYDR-3825 PO (13:31)
[2016-07-29] MEDS ORDERED: OMEP20CA11 PO (13:31)
[2016-07-29] MEDS: Insulin LISPRO 300 Unit/3 mL Inj SUBQ SCH ×3 (15:20→20:00)
--- NOTE | 2016-07-29 16:00 | NUR ---
Admit Pt admitted to [facility] room 3031 at approx 1450. Pt transferred to floor in venkat bed, which has remained in his room. Report received from ANTOINE Mclean. Pt alert and oriented. VS obtained, tele placed, weight obtained. Pt has miles catheter in place which was placed in the ED. ED MD ordered for it to be discontinued, but pt refused to have it taken out. Informed of the risks for infection. Hospitalist aware. Snacks ordered from the cafeteria per pt request. Admit video played. Admit completed by admit RN.
[2016-07-29] MEDS ORDERED: Furosemide 10 mg/mL 2 mL Inj IVPUSH ONE (16:15)
[2016-07-29] MEDS ORDERED: HYDROcodone-APAP 7.5-325 mg Tablet PO PRN (16:15)
--- NOTE | 2016-07-29 16:15 | PCM.HPMED ---
Subjective Date of Service Jul 29, 2016 Primary Provider: Admitting Physician: Nessa Campbell MD Primary Care Physician: Vladislav Patel DO Attending Physician: Nessa Campbell MD Chief Complaint: Generalized Weakness, lightheadedness, chills History of Present Illness: 75-year-old male with markedly obese BMI57, hypertension, diabetes, hyperlipidemia, MATILDE on CPAP(not compliant recently), sCHF p/w Generalized Weakness, lightheadedness, chills Patient stated that he was usual state of health, in by primary doctor four days ago for regular checkup, didn't hear anything wrong. Yesterday pt had severe chills for a while, but able to eat with good appetite, no n/v. didn't take temp. Today, pt was very weak, unable to get up from his chair, felt dizzy while he was sitting, decided to call EMS. Patient denied any changes of urinary habits, no urgency, frequency, changes of urine color or smell. denied cough, sputum, but has SOB chronically, fell a sleep in recliner these days, didn't use CPAP machine although it's working well. pt denied diarrhea, sick contacts. Baseline using walker when he moves or on WC. Of note, pt had Pseudomonas UTI in (UCX+), received Rocephin then discharged with Ciprofloxacin. pt stated that he finished it, didn't think that he had similar symptoms at that time. ED VS [id number], 72, 20, 97% on RA, labs showed marked leukocytosis, ESR, hypoMg, mildly lactate, mild PCT. CXR was equivocal, mildly congested, no obvious infiltrate, EKG LAD+, sinus tachy94, pt received 1dose of Rocephin. Patient has likely Gr1 pressure sore confirmed by ED provider but no opening ulcers. Upon interview, pt still felt very weak, had labored breathing with his mouth , stated that he has been doing this, unchanged from baseline. denied abdominal pain. Review of Systems: Pertinent positives as noted in history of present illness. All other systems were reviewed and are negative Allergies Coded Allergies: penicillin G (Verified Allergy, Intermediate, rash, 07/29/16) Home Medications Metoprolol Succinate ER (Metoprolol Succinate ER) 25 Mg Tab.er.24h 25 MG PO DAILY (Reported) Pramipexole 0.25mg 1-2tab 1-2hours before bed Verapamil ER (Verapamil ER) 240 Mg Cap24h.pel 240 MG PO QPM (Reported) Verapamil ER (Verapamil ER) 180 Mg Tablet.er 180 MG PO QPM (Reported) Oxybutynin Chloride (Oxybutynin Chloride) 5 Mg Tablet 5 MG PO BID (Reported) Lisinopril (Lisinopril) 10 Mg Tablet 10 MG PO DAILY (Reported) Clopidogrel Bisulfate (Plavix) 75 Mg Tablet 75 MG PO DAILY Hydrochlorothiazide (Hydrochlorothiazide) 12.5 Mg Tablet 12.5 MG PO DAILY ( Reported) Risperidone (Risperidone) 1 Mg Tablet 1 MG PO DAILY Clonidine (Clonidine) 0.3 Mg Tablet 0.3 MG PO BID (Reported) Hydrocodone-Acetaminophen 10-325 mg (Hydrocodone-Acetaminophen 10-325 mg) 1 Each Tablet 1 EACH PO TID PRN PRN For Pain (Reported) Omeprazole 20mg qd Atorvastatin Calcium (Atorvastatin Calcium) 40 Mg Tablet 40 MG PO HS (Reported) Metformin (Metformin) 500 Mg Tablet 1,000 MG PO BIDWM (Reported) PMH PMH Hypertension Diabetes mellitus type II blood sugars range between 1:30 and 140 at home he checks his blood sugars twice daily morning and evening Hypercholesterolemia Obstructive sleep apnea on CPAP Morbid obesity Depression and anxiety Bipolar systolic congestive heart failure EF of 45%, apical moderate hypokinesis in NSTEMI 2014 in September Iron deficiency anemia EGD showed erosive gastropathy Colonoscopy showed hemorrhoids and colonic polyps in 2014 cataract extraction bilaterally Multiple missing and broken teeth Walks with a walker Chronic pain both knees Urinary incontinence Family History Mother of old age Father cancer type unknown Sr. cancer type unknown 2 brothers alive health unknown Social History Hx Alcohol Use: Yes (stopped drinking 30 years ago) Hx Substance Use: No Hx Tobacco Use: No Smoking Status: Former Smoker (quit over 10 years ago) Additional Information CODE STATUS DO NOT RESUSCITATE is and he raised 2 stepsons one stepdaughter He has a rn med surg that comes in twice a week to help him with laundry and about He walks with a walker lives alone Social History Hx Alcohol Use: No Hx Substance Use: No Hx Tobacco Use: No Smoking Status: Former Smoker Exam Vital Signs Vital Sign - Last Date Time Temp Pulse Resp B/P Pulse Ox O2 Delivery O2 Flow Rate FiO2 07/29/16 14:54 37.6 87 22 130/73 92 Room Air Exam Markedly obese, elderly male looked weak, AAOX3, coherent NAD, comfortably laying down on the bed no JVD, MMM, no LAD RRR, nl s1, s2 no mrg decreased BS due to body habitus S,ND,NT,normoactive BS+ 2+pitting edema, mild diffuse erythema bilaterally, no ulcer, Lab and Diagnostics Result Diagram: 07/29/16 0845 07/29/16 0845 X-Rays, CTs and MRIs PROCEDURE: X-RAY CHEST ONE VIEW, PORTABLE ([id number]) INDICATIONS: SHORTNESS OF BREATH TECHNIQUE: One view of the chest was acquired. COMPARISON: [facility], CR, XR CHEST 1VW (PORTABLE), 04/28/2016, 14: 23. FINDINGS: Surgical changes and devices: None. Lungs and pleura: No pleural effusions or pneumothorax. Lungs are clear. Mild prominence of pulmonary vascularity but no confluent pulmonary edema. Mediastinum: Mediastinal contours appear normal. Heart size is mildly increased. Bones and chest wall: No suspicious bony lesions. Overlying soft tissues appear unremarkable. IMPRESSION: Mild cardiomegaly. No definitive CHF. Dictated by: Cely Jurado M.D. on 07/29/2016 at 9:10 Approved by: Cely Jurado M.D. on 07/29/2016 at 9:15 Assessment & Plan 75-year-old male with markedly obese BMI57, hypertension, diabetes, hyperlipidemia, MATILDE on CPAP(not compliant recently), sCHF p/w Generalized Weakness, lightheadedness, chills acute, active Constitutional sx with generalized Weakness, lightheadedness, chills, POA, likely from underlying infection UTI possible given under treated pseudomonas from last time, probable cellulitis although exam findings is not impressive or advance CHF with high catabolic state. -CFX 1dose given in ED, will star cefepime 2g q8h empirically, awaits UCX result , -trends fever curve, PCT, ESR -awaits BCXx2 from ED -miles cath inserted in ED, will leave it for now given body habitus until pt gain more strength. chronic systolic heart failure, POA, last TTE showed EF of 45%, apical moderate hypokinesis in -will repeat TTE although likely limited study given body habtius -will start diuretics, 20mg iv today, monitor i/o, daily wt -O2 supplement as needed chronic, stable MATILDE on CPAP, will resume and encourage using at home HTN, continue diltiazem HLD, continue statin DM, lispro SS, get a1c dispo:Patient will be admitted with inpatient status with expectation of inpatient therapy for more than 2 midnights diet:cardiac, diabetic dvt ppx:HSQ DNR, DNI confirmed with patient verbally at the bedside Time spent 65min Nessa Campbell MD Jul 29, 2016 15:23
[2016-07-29] MEDS ORDERED: Albuterol 2.5 mg/3 mL Inhalation Solution NEB PRN (16:20)
[2016-07-29 16:48] LABS: BASOPHILS % (AUTO) 0.1 % (0-3); EOSINOPHILS % (AUTO) 0 % (0-5); MONOCYTES % (AUTO) 9.5 % (4-12); Mean Corpuscular Hemoglobin 28.3 pg (27.0-35.0); NEUTROPHILS % (AUTO) 85.1 % (40-74); Platelet Count 261 bil/L (150-400)
[2016-07-29] MEDS: Heparin 5,000 Unit/mL Inj SUBQ SCH (16:49)
[2016-07-29 17:13] LABS: Magnesium 1.5 mg/dL (1.6-2.6)
[2016-07-29] MEDS: Cefepime Inj 2,000 MG in Dextrose 5% Minibag Plus 100 ML IV SCH (17:40)
[2016-07-29] MEDS ORDERED: 0.9% Sodium Chloride 250 ML ONE (20:16)
[2016-07-29] MEDS ORDERED: 0.9% Sodium Chloride 250 ML IV ONE (20:45)
[2016-07-29] MEDS: Verapamil SR 180 mg ER12 Tablet PO SCH (20:56)
[2016-07-29] MEDS: Verapamil SR 240 mg ER12 Tablet PO SCH (20:56)
[2016-07-29] MEDS: HYDROcodone-APAP 5-325 mg Tablet PO PRN (22:26)
[2016-07-30] VITALS (9 sets, daily range): BP systolic 118–163; BP diastolic 68–84; PULSE 81–103; RESP 18–22; O2SAT 92–99
[2016-07-30] MEDS: Cefepime Inj 2,000 MG in Dextrose 5% Minibag Plus 100 ML IV SCH ×4 (00:07→23:03)
[2016-07-30] MEDS: Heparin 5,000 Unit/mL Inj SUBQ SCH ×4 (00:54→21:43)
[2016-07-30] MEDS: HYDROcodone-APAP 5-325 mg Tablet PO PRN ×4 (02:54→21:57)
--- NOTE | 2016-07-30 05:56 | NUR ---
pain/CPAP [place] given per pt's request for 10 hip pain with good relief. Pt unable to tolerate CPAP. Pt sleeping at this time with sats in mid 90s on RA; COLOR CHECKER on.
[2016-07-30 06:10] LABS: BASOPHILS % (AUTO) 0.2 % (0-3); EOSINOPHILS % (AUTO) 0.9 % (0-5); MONOCYTES % (AUTO) 8.2 % (4-12); Mean Corpuscular Hemoglobin 28.4 pg (27.0-35.0); Mean Corpuscular Volume 91.4 fL (81-100); NEUTROPHILS % (AUTO) 84.1 % (40-74); Platelet Count 253 bil/L (150-400)
[2016-07-30 06:44] LABS: Phosphorus 3.6 mg/dL (2.5-4.9)
[2016-07-30 09:00] LABS: APPEARANCE,URINE CLOUDY (CLEAR,HAZY); COLOR,URINE YELLOW (YELLOW); OCCULT BLOOD,URINE NEGATIVE (NEGATIVE); UROBILINOGEN,URINE NORMAL (NORMAL)
[2016-07-30] MEDS: risperiDONE 1 mg Tablet PO SCH (09:01)
[2016-07-30] MEDS: MeTOProlol XL 25 mg ER24 Tablet PO SCH (09:01)
[2016-07-30] MEDS: Furosemide 10 mg/mL 2 mL Inj IVPUSH SCH (09:02)
[2016-07-30] MEDS: Insulin LISPRO 300 Unit/3 mL Inj SUBQ SCH ×4 (09:02→21:46)
[2016-07-30] MEDS: Polyethylene Glycol (PEG) 17 Gm Powder PO SCH ×2 (09:42→21:42)
--- NOTE | 2016-07-30 11:06 | NUR ---
Pain: [place] administered for Rt hip pain 7/10 on pain scale. On reassessment, Rt hip pain decreased to 4/10.
--- NOTE | 2016-07-30 11:28 | NUR ---
[place]anda[place]: [place] catheter discontinued @ 1130. Patient requesting urinal to remain in place between legs. Education provided regarding problems related to skin and pressure if leaving urinal in place. Asked patient to call for assistance with urinal. Patient agreed.
--- NOTE | 2016-07-30 14:37 | PCM.PNMED ---
Subjective Date of Service Jul 30, 2016 Subjective pt had another episode of mild fever but otherwise felt generally better Miles was dc'ed given no indication. UA showed bacteriuria, UCX pending received lasix 20mg iv, didn't seem to respond well. denied SOB, cough, was on CPAP Exam Vital Signs Vital Sign - Last Date Time Temp Pulse Resp B/P Pulse Ox O2 Delivery O2 Flow Rate FiO2 07/30/16 12:54 36.8 95 20 135/75 92 Room Air Intake and Output 07/29/16 07/29/16 07/30/16 Cumulative From/Thru 15:00 23:00 07:00 07/29/16 08:29 - 07/29/16 18:44 Intake Total 1000 ml 558 ml 1558 ml Output Total 650 ml 650 ml Balance 1000 ml -92 ml 908 ml Intake Oral 518 ml 518 ml IV Total 1000 ml 40 ml 1040 ml Output Urine Total 650 ml 650 ml Exam Markedly obese, elderly male looked weak, AAOX3, coherent NAD, comfortably laying down on the bed no JVD, MMM, no LAD RRR, nl s1, s2 no mrg decreased BS due to body habitus S,ND,NT,normoactive BS+ 2+pitting edema, mild diffuse erythema bilaterally, no ulcer, IVs and Medications Medications Reviewed: Medications were reviewed in detail Lab and Diagnostics Result Diagram: 07/30/16 0600 07/30/16 0600 X-Rays, CTs and MRIs PROCEDURE: X-RAY CHEST ONE VIEW, PORTABLE ([id number]) INDICATIONS: SHORTNESS OF BREATH TECHNIQUE: One view of the chest was acquired. COMPARISON: [facility], CR, XR CHEST 1VW (PORTABLE), 04/28/2016, 14: 23. FINDINGS: Surgical changes and devices: None. Lungs and pleura: No pleural effusions or pneumothorax. Lungs are clear. Mild prominence of pulmonary vascularity but no confluent pulmonary edema. Mediastinum: Mediastinal contours appear normal. Heart size is mildly increased. Bones and chest wall: No suspicious bony lesions. Overlying soft tissues appear unremarkable. IMPRESSION: Mild cardiomegaly. No definitive CHF. Dictated by: Cely Jurado M.D. on 07/29/2016 at 9:10 Approved by: Cely Jurado M.D. on 07/29/2016 at 9:15 Assessment & Plan 75-year-old male with markedly obese BMI57, hypertension, diabetes, hyperlipidemia, MATILDE on CPAP(not compliant recently), sCHF p/w Generalized Weakness, lightheadedness, chills acute, active Constitutional sx with generalized Weakness, lightheadedness, chills, POA, likely from underlying infection UTI possible given under treated pseudomonas from last time or lt buttock abscess although exam findings is not impressive or advance CHF with high catabolic state. -CFX 1dose given in ED, will star cefepime 2g q8h empirically, awaits UCX result , -trends fever curve, PCT, ESR -awaits BCXx2 from ED -miles cath inserted in ED, d/gurjit today. chronic systolic heart failure, POA, last TTE showed EF of 45%, apical moderate hypokinesis in -will repeat TTE although likely limited study given body habtius -will start diuretics, 20mg iv today, monitor i/o, daily wt -O2 supplement as needed Lt buttock abscess with pus, POA, found by Wound care service 07/30, -recommended surgery consult for I&D, appreciate input -NPO after MN, tentative plan for surgery tomorrow -added clindamycin today to cover anaerobes chronic, stable MATILDE on CPAP, resumed and encourage using at home HTN, continue diltiazem HLD, continue statin DM, mildly off target, continue lispro SS, added [id number], get a1c dispo:Patient will be admitted with inpatient status with expectation of inpatient therapy for more than 2 midnights diet:cardiac, diabetic, NPO after MN, dvt ppx:HSQ DNR, DNI confirmed with patient verbally at the bedside Time spent 35min Nessa Campbell MD Jul 30, 2016 14:36
[2016-07-30] MEDS ORDERED: Clindamycin Inj 600 MG in IV Premix 1 EACH IV SCH (14:55)
--- NOTE | 2016-07-30 15:15 | NUR ---
Wound Care Wound evaluation orders received, pt seen at bedside with nursing. 76 yo obese male admitted to [facility] for sepsis, lying on a bariatric foam mattress ,he presents with a gluteal cleft skin tear that is 10 cm L x 1.5 cm W x 0.2 cm D, this may be due to incontinence and shearing with bed mobility, recommend shield wipes for keeping periwound skin protected for the time being as I don't think you will be able to get a dressing to stay put at this sight. It is noted that there is a large area of induration at the right buttock and with investigation i am able to milk 10 or more cc's of pham purulence from this area, I suspect this may be the nidus of his sepsis and would recommend surgical consult for definitive treatment.
--- NOTE | 2016-07-30 15:46 | PCM.CONSUR ---
Subjective Date of Service: Jul 30, 2016 History of Present Illness Mr. Guillermo Baker is a 75-year-old gentleman admitted to [facility] for Generalized weakness and chills, lightheadedness and called EMS after reports of being stuck in his recliner. He is markedly obese with a BMI of 57.3. He has a past medical history of non-insulin using diabetes, hypertension , hyperlipidemia, MATILDE on CPAP, sCHF, and most certainly obesity hypoventilation syndrome. He has a home health RN but doesn't require help for bathroom duties and uses a walker without assistance. Durring evaluation by wound care for a gluteal crease skin tear, an incidental right lower gluteal wound roughly 5 cm long was noticed and squeezed, and ~ 10 cc of brown purulent fluid drained out. The patient reports some mild pain in that region roughly one month ago but hasn 't noticed any pain since. He denies headache, syncope, chest pain, abdominal pain, fevers, nausea, vomiting, cough, dysuria, . Reports weakness, chills, constipation. Of note, pt had Pseudomonas UTI in (UCX+), received Rocephin then discharged with Ciprofloxacin. pt stated that he finished it, didn't think that he had similar symptoms at that time. Labs showed marked leukocytosis of 20, ESR, hypoMg, mildly lactate of 2.5, mild PCT. CXR was equivocal, mildly congested, no obvious infiltrate, EKG LAD+, sinus tachy94, pt received 1dose of Rocephin. Patient has likely Gr1 pressure sore confirmed by ED provider but no opening ulcers. Reason for Consultation Indurated wound on right lower buttock region. Allergy Allergies: Coded Allergies: penicillin G (Verified Allergy, Intermediate, rash, 07/29/16) Medications Atorvastatin Calcium (Atorvastatin Calcium) 40 Mg Tablet 40 MG PO HS (Reported) Last Taken: Unknown Dose on Unknown Date & Time Cefazolin Sodium/D5w ( Cefazolin 2 G/50 ml-D5w Bag) 2 Gram/50 Ml Piggyback 2 GM IV TID Prescribed by: FIDELINA MENDOSA MD Clonidine (Clonidine) 0.3 Mg Tablet 0.3 MG PO BID (Reported) Last Taken: Unknown Dose on Unknown Date & Time Clopidogrel (Clopidogrel) 75 Mg Tablet 75 MG PO DAILY (Reported) Last Taken: Unknown Dose on Unknown Date & Time Furosemide (Lasix) 80 Mg Tablet 80 MG PO BID Prescribed by: FIDELINA MENDOSA MD Hydrocodone-Acetaminophen 7.5-325 mg (Hydrocodone-Acetaminophen 7.5-325 mg) 1 Each Tablet 1 TAB PO Q6H PRN PRN For Pain (Reported) Last Taken: Unknown Dose on Unknown Date & Time Insulin Glargine (Lantus U100 Insulin Vial) 100 Unit/Ml Vial 10 UNIT SUBQ HS Prescribed by: FIDELINA MENDOSA MD Insulin Human Lispro (HumaLOG U100 Insulin Vial) 100 Unit/Ml Unit 0 UNIT SUBQ WMHS Check blood sugars before meals and at bedtime. Use correction factor only before meals. Blood Sugar Lispro Correction: <151, 0 units; 151-175, 1 unit; 176-200, 2 units; 201-225, 3 units; 226-250, 4 units; 251-275, 5 units; 276-300 , 6 units; 301-325, 7 units; 326-350, 8 units; 351-375, 9 units; 376-400, 10 units; >400, 12 units. Prescribed by: FIDELINA MENDOSA MD Lisinopril (Lisinopril) 10 Mg Tablet 10 MG PO DAILY (Reported) Last Taken: Unknown Dose on Unknown Date & Time Metformin (Metformin) 500 Mg Tablet 1,000 MG PO BIDWM (Reported) Last Taken: Unknown Dose on Unknown Date & Time Metoprolol Succinate ER ( Metoprolol Succinate ER) 25 Mg Tab.er.24h 25 MG PO DAILY (Reported) Last Taken: Unknown Dose on Unknown Date & Time Metronidazole (Flagyl) 500 Mg Tablet 500 MG PO Q8 Prescribed by: FIDELINA MENDOSA MD Omeprazole (Omeprazole) 20 Mg Capsule.dr 20 MG PO DAILY (Reported) Last Taken: Unknown Dose on Unknown Date & Time Oxybutynin Chloride ( Oxybutynin Chloride) 5 Mg Tablet 5 MG PO BID (Reported) Last Taken: Unknown Dose on Unknown Date & Time Pramipexole Dihydrochloride (Pramipexole Dihydrochloride) 0.25 Mg Tablet 0.25-0.5 MG PO HS (Reported) Take 1-2 hrs before bedtime Last Taken: Unknown Dose on Unknown Date & Time Risperidone (Risperidone) 1 Mg Tablet 1 MG PO DAILY Prescribed by: CHRISTEL PINEDA MD Last Taken: Unknown Dose on Unknown Date & Time Verapamil ER (Verapamil ER) 180 Mg Tablet.er 180 MG PO QPM (Reported) Last Taken: Unknown Dose on Unknown Date & Time Verapamil ER (Verapamil ER) 240 Mg Tber 240 MG PO DAILY (Reported) Last Taken: Unknown Dose on Unknown Date & Time Discontinued Medications Hydrochlorothiazide (Hydrochlorothiazide) 12.5 Mg Capsule 12.5 MG PO DAILY ( Reported) Last Taken: Unknown Dose on Unknown Date & Time Past Surgical History Surgeries: Yes (stents) Patient/Family Past Surgical: Positive for:: Accept Blood Products?, Denies:: Anesthesia Reactions, Blood Transfusions Social History Hx Alcohol Use: No Hx Substance Use: No Hx Tobacco Use: No PMH HEENT History History of ENT Problems?: Yes HEENT History: Positive for:: Cataracts (both removed) Denies:: Dysphagia Sinus Problem Cardiovascular History History of Heart Problems?: Yes Cardiovascular History: Positive for:: Chest Pain Edema Hypertension Irregular Heartbeat Denies:: Cardiac Surgery Congestive Heart Failure Heart Murmur Pacemaker Thrombophlebitis Respiratory History of Respiratory Problem: Yes Respiratory History: Positive for:: Asthma COPD (per ER MD 01/03/14, pt. unaware- denies at this time) Dyspnea Pneumonia Denies:: Chest Surgery Emphysema Hemoptysis Tuberculosis Neurological History Hx Neurologic Problems?: No Neurological History: Positive for:: Headaches Denies:: Alzheimer's Disease CVA Dementia Dizziness Parkinson's Disease Seizures Gastrointestinal History HX of GI Problems?: Yes Gastrointestinal History: Positive for:: Gastroesphageal Reflux Heartburn Denies:: Diverticulitis Gastrointestinal Bleeding Hepatitis Hiatal Hernia Rectal Bleeding Genitourinary History Hx of Gu Problems?: No Genitourinary History: Denies: HX of Hemodialysis Kidney Stones Urinary Tract Infection Female/Male History Reproductive History Male: Denies: Prostate Problems Scrotal Mass Musculoskeletal History Hx Musculoskeletal Problems?: Yes Musculoskeletal History: Denies:: Back Injury Joint Replacement Musculoskeletal Trauma Psycho Social History Hx of Psycho/Social Problems?: Yes Psycho Social History: Positive for:: Anxiety Bipolar Disorder (hx of bipolar) Hx Depression Denies:: Suicide Attempt Other History Hx Any Other Health Problems?: Yes Other History: Denies:: Cancer Endocrine Disease Hospitalization (09/2014) Thyroid Disease Diabetes: Yes (type 2, on metformin)Bedside Blood Glucose: 193 Social History Hx Alcohol Use: NoHx Substance Use: NoHx Tobacco Use: No Smoking Status: Former Smoker Objective Exam Objective A comprehensive review of systems was reviewed and negative except those listed in the H&P. Vital Signs & I/O Vital Sign- Last 8 Hours Date Time Temp Pulse Resp B/P Pulse Ox O2 Delivery O2 Flow Rate FiO2 07/30/16 12:54 36.8 95 20 135/75 92 Room Air 07/30/16 10:06 36.8 103 18 154/68 99 Room Air 07/30/16 09:25 86 22 93 Room Air 07/30/16 08:00 94 Intake and Output- Last 8 Hour 07/30/16 Cumulative From/Thru 07:00 07/29/16 08:29 - 07/29/16 18:44 Intake Total 1558 ml Output Total 650 ml Balance 908 ml Intake Oral 518 ml IV Total 1040 ml Output Urine Total 650 ml Lab & Micro Results Laboratory Tests Test 07/29/16 16:42 07/30/16 06:00 White Blood Count 20.3th/mm3 (3.8-10.1) 19.5th/mm3 (3.8-10.1) Red Blood Count 3.78mil/mm3 (4.40-5.80) 3.70mil/mm3 (4.40-5.80) Hemoglobin 10.7g/dL (13.8-17.2) 10.5g/dL (13.8-17.2) Hematocrit 34.4% (41.0-50.0) 33.8% (41.0-50.0) Mean Corpuscular Volume 91.0fL (81-100) 91.4fL (81-100) Mean Corpuscular Hemoglobin 28.3pg (27.0-35.0) 28.4pg (27.0-35.0) Mean Corpuscular Hemoglobin Concent 31.1% (32.0-37.0) 31.1% (32.0-37.0) Red Cell Distribution Width 14.7% (12.3-15.4) 14.7% (12.3-15.4) Platelet Count 261bil/L (150-400) 253bil/L (150-400) Neutrophils (%) (Auto) 85.1% (40-74) 84.1% (40-74) Lymphocytes (%) (Auto) 5.0% (14-46) 6.2% (14-46) Monocytes (%) (Auto) 9.5% (4-12) 8.2% (4-12) Eosinophils (%) (Auto) 0% (0-5) 0.9% (0-5) Basophils (%) (Auto) 0.1% (0-3) 0.2% (0-3) Sodium Level 135mEq/L (134-144) 136mEq/L (134-144) Potassium Level 3.5mEq/L (3.5-5.2) 4.4mEq/L (3.5-5.2) Chloride Level 96mEq/L (97-108) 97mEq/L (97-108) Carbon Dioxide Level 22mmol/L (18-29) 24mmol/L (18-29) Blood Urea Nitrogen 25mg/dL (8-27) 26mg/dL (8-27) Creatinine 0.82mg/dL (0.76-1.27) 0.89mg/dL (0.76-1.27) Estimat Glomerular Filtration Rate 98mL/min (>59) 89mL/min (>59) Glucose Level 212mg/dL (60-99) 188mg/dL (60-99) Lactic Acid Level 2.5mmol/L (0.4-2.0) Calcium Level 9.0mg/dL (8.5-10.1) 8.7mg/dL (8.5-10.1) Magnesium Level 1.5mg/dL (1.6-2.6) 2.0mg/dL (1.6-2.6) Total Bilirubin 0.6mg/dL (0.0-1.2) 0.6mg/dL (0.0-1.2) Aspartate Amino Transf (AST/SGOT) 14U/L (0-50) 40U/L (0-50) Alanine Aminotransferase (ALT/SGPT) 20U/L (0-44) 21U/L (0-44) Alkaline Phosphatase 55U/L (25-160) 63U/L (25-160) Total Protein 6.4g/dL (6.4-8.4) 5.7g/dL (6.4-8.4) Albumin 3.0g/dL (3.4-5.0) 3.1g/dL (3.4-5.0) Phosphorus Level 3.6mg/dL (2.5-4.9) Procalcitonin 0.43ng/mL (0.00-0.08) Microbiology 07/29/16 Blood Culture - Preliminary, Resulted NO GROWTH AFTER 24 HOURS 07/29/16 Urine Culture, Received Pending Result Diagram: 07/30/16 0600 07/30/16 0600 Review of Systems: Constitutional: Negative, except as otherwise mentioned in the history above. Ophthalmologic: Negative, except as otherwise mentioned in the history above. Cardiovascular: Negative, except as otherwise mentioned in the history above. Respiratory: Negative, except as otherwise mentioned in the history above. Gastrointestinal: Negative, except as otherwise mentioned in the history above. Genitourinary: Negative, except as otherwise mentioned in the history above. Musculoskeletal: Negative, except as otherwise mentioned in the history above. Neurological: Negative, except as otherwise mentioned in the history above. Psychiatric: Negative, except as otherwise mentioned in the history above. Hematologic/Lymphatic: Negative, except as otherwise mentioned in the history above. Allergic/Immunologic: Negative, except as otherwise mentioned in the history above. H&P Surgical Exam Exam General: Alert, Oriented X3 HEENT: Within normal limits & unremarkable Neck: Within normal limits & unremarkable Respiratory: Breath Sounds Diminished (tachypnic with prolonged expiratoy phase. ) Cardiac: Exam Unremarkable, Other (irregular rate and rhythm. ) Abdomen: Soft, No tenderness, Other (obese) Breasts: Not Indicated Pelvic: Not Indicated Additional Information Right lower buttock, indurated and slightly draining wound just lateral to the anus. Assessment & Plan Assessment Right lower buttock wound. Other medical conditions. Super morbid obesity Non insulin using diabetes obesity hypoventillation syndrome leukocytosis mild lactic-acidosis SIRS HTN HLD Plan: Recommend incision and drainage and GS/Cx of lower buttock wound. Will require anesthesia and NPO after midnight. Wound care and Abx for post op wound management. Continue abx and other recommendations per Dr. Villarreal with ID. Hospitalist managing other medical conditions. Resuscitation Status: DNR/DNI:Do Not Resuscitate/Intubate Attending Statement: I personally examined the pt, and I agree with Dr. Nguyen's assessment and plan. Need I & D. KATIUSKA NGUYEN DO Jul 30, 2016 15:46 Tod Beltran MD August 09, 2016 09:28 KATIUSKA NGUYEN DO Jul 30, 2016 15:46
--- NOTE | 2016-07-30 16:16 | NUR ---
Social Work: Initial Assessment Data: Pt is a 76 y/o male admitted for sepsis. Pt's PCP is Dr Ptael, pt's insurance is [employer]. Readmit score is 6, high. EMR reviewed. PRICING/SIGNAGE TEAM MEMBER met with pt, role explained. Pt states that he lives on [address] in a single wide with a ramp to enter with a roommate. He states he has a caregiver who comes in to help him twice a week. Pt states that he uses a walker, drives, has hx with HH and SNF, [facility] and [facility]. Pt states if he goes to SNF he would prefer [facility]. PRICING/SIGNAGE TEAM MEMBER spoke with pt about how he has been into the hospital fairly frequently and continues a pattern of coming into the hospital, then going to SNF, then home, then back to the hospital. PRICING/SIGNAGE TEAM MEMBER asked if pt would be interested in talking with someone about Medicaid application to consider in home assistance with [facility] or an [facility]. Pt is agreeable to assessment. PRICING/SIGNAGE TEAM MEMBER requested [facility] come to meet with pt. Pt states he wants to stay at home "until he bites the bullet". Pt's friend who was visiting pt let PRICING/SIGNAGE TEAM MEMBER know that pt was having suicidal thoughts on Tuesday. PRICING/SIGNAGE TEAM MEMBER met with pt regarding this and he confirms that this is true stating that it was a "fleeting moment" and that he called a friend who was able to help him calm down quickly. Pt states he has never had any thoughts like that before or since and does not currently have any suicidal thoughts or plans. Assessment: Pt with some caregiving at baseline. Plan: PRICING/SIGNAGE TEAM MEMBER will continue to follow for d/c recommendations, possible SNF or HH. PRICING/SIGNAGE TEAM MEMBER will continue to follow. POONAM Ratliff Addendum: 07/30/16 at 1622 by WAYNE FRANCO Amended: Links added.
--- NOTE | 2016-07-30 17:10 | CONS ---
[address] [address] CONSULTATION REPORT PATIENT: SALVADOR CASTRO : 1940 MR#: [id number] ADMIT: 07/29/2016 JOB ID: [id number] DATE OF SERVICE: 07/30/[address] Campbell for this timely consult. REASON FOR CONSULTATION: Right buttock abscess in a morbidly obese gentleman. HISTORY OF PRESENT ILLNESS: The patient is a 76-year-old gentleman with multiple medical problems, who is well known to me from an admission about one year ago. During that admission, the patient was found to have an unexplained bacteremia with associated cellulitis and leukocytosis. Oddly, the bacteremia was due to Streptococcus mitis, which is an unusual cause of cellulitis, but we nonetheless elected to treat the patient with oral linezolid for a week or so. The patient recovered uneventfully from that November 2015 admission and returned home to his place on [address] where he lives more or less alone, though he does have a roommate in the same household whom he occasionally interacts with. The patient has many underlying medical problems of course including supermorbid obesity with BMI between 50 and 60, as well as diabetes, peripheral neuropathy, coronary disease, and bipolar disorder. He was managing okay at home until yesterday when he sat down in a chair at his place on [address] and several hours later found himself utterly unable to get out of the chair. Because of that, he summoned help and was transported to this hospital. The patient notes that for about three weeks prior to his admission, he has been having some gradually increasing pain and tenderness around his right buttock. This has been associated with some questionable chills but no fevers or sweats. He has been concerned that he might be developing an infection there but that was not the reason that led to his admission but rather simple inability to pull himself out of a chair which is often very difficult. He notes that he can get around a little bit in his house using a walker but that his ambulation and transfers are quite tenuous. He has had as mentioned no overt fevers and some questionable chills, though he does have some even at baseline. No significant sweat, cough, chest pain, shortness of breath, nausea, vomiting, diarrhea. His legs are chronically very swollen with some erythema distally and that has not changed. PAST MEDICAL HISTORY: As mentioned 1. Supermorbid obesity. 2. Diabetes. 3. Coronary artery disease. 4. Bipolar disorder. 5. Peripheral neuropathy. 6. Hypertension. SOCIAL HISTORY: The patient lives on [place]. Is retired employee of the [employer]. He stopped drinking 30 years ago and stopped smoking about 10 years ago. FAMILY HISTORY: Negative for tuberculosis, though many family members have different kinds of cancer. REVIEW OF SYSTEMS: The patient states no significant recent headache or visual change. No sores in the mouth or trouble swallowing. No shortness of breath above what he has at baseline. No cough or chest pain. No nausea, vomiting, or diarrhea. No issues with urgency, frequency, or dysuria. No new complaints referable to his joints, though he does have a lot of baseline arthritis. He has the continual erythema over his anterior shins and that has not changed. Neurologically, he is about the same as he usually is in that he can move all four extremities and get around his house a little bit with a walker except that he became more weak on the day of admission and was unable to get out of a chair. Remainder of the review of systems negative. PHYSICAL EXAMINATION: Reveals a morbidly obese gentleman, BMI in the mid 50s, weight 390 pounds. Temperature 36.8, pulse 95, respiratory rate 20, blood pressure 135/75. He is saturating 92% on room air. Examination of the head is unremarkable. The eyes without conjunctivitis. The nose normal. Oral cavity: No thrush. No pharyngitis and teeth are in reasonably good repair. No cervical adenopathy. I cannot tell if he has JVD. He is obese with a alexandre obscuring the vessels of the neck. Lungs: Fair air flow bilaterally. A few crackles at the bases. Cardiac tones: Regular rate and rhythm. No significant murmur is appreciated. Abdomen is massively obese, soft, nontender. No organomegaly present. No suprapubic fullness. No Landaverde catheter. His joints are free of synovitis. His legs are swollen, though this is said to be on a chronic basis with 2+ pitting edema and venous stasis changes. No skin breakdown appreciated on the legs. With the help of three or four other people, the patient was successfully rolled over for an evaluation of his buttocks. He has about a 5-6 cm in diameter indurated, moderately tender, slightly draining abscess present in his right medial buttock. This was examined with the team as well as with Dr. Justin Beltran of surgery who plans to take the patient to the OR in the morning and drain this. The patient can move all extremities but he is sufficiently weak that it is not surprising he cannot arise from a chair or walk very well. LABORATORIES: Include white count steady at 20,000 ever since admission. He does have a left shift, 85% segs. Sed rate 79. Creatinine 0.89. LFTs normal. Albumin 3.1. Procalcitonin 0.43. Urinalysis without white cells. HIV and hepatitis C were negative on an admission last year and not repeated and I do not see any reason to. Urine culture is pending. Blood cultures are negative. Prior urine cultures in April yielded Pseudomonas. Blood cultures last November yielded three out of four bottles with Strep mitis. he has never had a positive MRSA. Chest x-ray today: Mild cardiomegaly without infiltrate or failure. IMPRESSION: This is an unfortunate 76-year-old gentleman who suffers from diabetes, coronary disease, bipolar disorder, and supermorbid obesity. He was admitted basically because he could not get out of a chair due to progressive weakness, but it does clearly appear that he has an abscess. His current antibiotic regimen includes cefepime and clindamycin. This is not an unreasonable regimen considering the patient is PENICILLIN allergic, and therefore, we would be inclined not to use Zosyn or Unasyn. The clindamycin will provide some good anaerobic coverage and the cefepime will provide nice broad-spectrum coverage but I am concerned about using clindamycin in an elderly man in the hospital. If this patient were to develop C. difficile colitis, the results could be devastating in that he would be very difficult to keep clean with his freshly debrided abscess should he develop diarrhea and also he would be at high risk to develop colitis and a bad outcome such as renal failure or . RECOMMENDATIONS: 1. I would drop the clindamycin. 2. Instead, will add Flagyl 500 p.o. t.i.d. to the cefepime. 3. Hopefully culture could be obtained at the time of surgery. 4. The main treatment for something like this is surgical drainage and the antibiotics only secondary to prevent recurrence and speed the healing.
--- NOTE | 2016-07-30 18:18 | NUR ---
Weight: Patient refusing to get OOB to stand for a weight.
[2016-07-30] MEDS: Insulin GLARgine 100 Unit/mL Syringe SUBQ SCH (21:43)
[2016-07-30] MEDS: Verapamil SR 240 mg ER12 Tablet PO SCH ×2 (21:45→23:13)
[2016-07-30] MEDS: Verapamil SR 180 mg ER12 Tablet PO SCH (21:45)
[2016-07-31] VITALS (8 sets, daily range): BP systolic 122–147; BP diastolic 69–83; PULSE 52–93; RESP 16–20; O2SAT 94–97
[2016-07-31] MEDS: HYDROcodone-APAP 5-325 mg Tablet PO PRN ×4 (05:19→21:10)
[2016-07-31] MEDS: Polyethylene Glycol (PEG) 17 Gm Powder PO SCH ×2 (07:37→20:30)
[2016-07-31 07:53] LABS: BASOPHILS % (AUTO) 0.2 % (0-3); Mean Corpuscular Hemoglobin 28.4 pg (27.0-35.0); NEUTROPHILS % (AUTO) 82.3 % (40-74); Platelet Count 276 bil/L (150-400)
[2016-07-31 08:25] LABS: Magnesium 1.9 mg/dL (1.6-2.6); Phosphorus 3.8 mg/dL (2.5-4.9)
[2016-07-31] MEDS: Cefepime Inj 2,000 MG in Dextrose 5% Minibag Plus 100 ML IV SCH ×4 (09:11→23:37)
[2016-07-31] MEDS: risperiDONE 1 mg Tablet PO SCH (09:12)
[2016-07-31] MEDS: Furosemide 10 mg/mL 2 mL Inj IVPUSH SCH (09:12)
[2016-07-31] MEDS: MeTOProlol XL 25 mg ER24 Tablet PO SCH (09:12)
[2016-07-31] MEDS: Insulin LISPRO 300 Unit/3 mL Inj SUBQ SCH ×4 (09:12→23:39)
[2016-07-31] MEDS: Heparin 5,000 Unit/mL Inj SUBQ SCH ×2 (09:29→17:36)
--- NOTE | 2016-07-31 10:04 | DRSVH ---
[facility] [address] [place] [address] Echocardiogram Report Name: SALVADOR CASTRO MStudy Date : 07/31/2016 Height: 69 in Hospital Exam Location: [facility] Weight: 376 lb Gender: Male BSA: 2.7 m2 : 1940 Age: 76 yrs Reason For Study: Endocarditis Ordering Physician: Performed By: Sudha Cardona Referring Physician: Vladislav Patel Interpretation Summary Overall left ventricular systolic function is preserved. The right ventricle is not well visualized. Suboptimal images. Cannot exclude endocarditis on this thoracic echocardiogram. Procedure: A two-dimensional transthoracic echocardiogram with color flow and Doppler was performed. The study quality was technically limited. Comparison is made with the echocardiogram of 04-29-16. The heart rate ranged between 81-86 bpm during the study. Left Ventricle: The left ventricle is mildly dilated. There is mild concentric left ventricular hypertrophy. Overall left ventricular systolic function is preserved. Right Ventricle: The right ventricle is not well visualized. Atria: The left atrium grossly appears normal in size. Mitral Valve: The mitral valve is grossly normal. Aortic Valve: The aortic valve opens well. The aortic valve is grossly normal. No aortic regurgitation is present. Tricuspid Valve: The tricuspid valve is normal in structure and function. Pulmonic Valve: The pulmonic valve is not well seen, but is grossly normal. Pericardium/ Pleura There is no pericardial effusion. There is no pleural effusion. MMode/2D Measurements & Calculations LVIDd LA dimension LV sorto. diameter/BSA LV sys. diameter/BSA : 6.1 cm (cm/m^2): 2.3 (cm/m^2): 1.4 LVIDs : 3.7 cm FS: 39.8 % EPSS : 0.7cm IVSd : 1.cm LVPWd : 0.8cm Doppler Measurements & Calculations TR max vicki: 301.2 cm/sec PA V2 mean: 84.6 cm/sec TR max P.3 mmHg PA V2 max: 129.7 cm/sec PA mean P.3 mmHg Reading Physician:EMILY
--- NOTE | 2016-07-31 11:33 | CONS ---
[address] [address] CONSULTATION REPORT PATIENT: SALVADOR CASTRO : 1940 MR#: [id number] ADMIT: 07/29/2016 JOB ID: [id number] DATE OF SERVICE: 07/31/2016 SURGICAL CONSULTATION: HISTORY OF PRESENT ILLNESS: A 76-year-old man whom we are asked to see for a right buttock abscess. He was admitted with an unexplained bacteremia. Yesterday, he was observed to have a right buttock abscess. I was asked to see him for incision and drainage. He was also seen I understand by Dr. Justin Beltran, but I do not see a dictation from him. The patient has multiple comorbidities which are contributing. The primary one is his super morbid obesity. He has a BMI of 57. He is severely deconditioned. He has never had a right buttock abscess. PAST MEDICAL HISTORY: Illnesses: 1. Super morbid obesity. BMI 57. 2. Diabetes. 3. Coronary artery disease. 4. Bipolar disorder. 5. Peripheral neuropathy. 6. Hypertension. 7. Severe deconditioning. SOCIAL HISTORY: He lives on [place]. Smoking: He quit smoking about a decade ago. REVIEW OF SYSTEMS: He is n.p.o., anticipating drainage later today. His only complaint is he is hungry. PHYSICAL EXAMINATION: Elderly, appearing stated age. BMI 57, temperature 36.4, brachial blood pressure 132/76, pulse 74, respiratory rate 18, O2 sat on 2 L 97%. HEENT: Nonjaundiced. Neck: Short. His trachea is midline. I do not appreciate any thyromegaly. Lungs are clear. Cardiac examination: Regular rhythm. I did not appreciate any murmurs. Right buttock: He has a medial area of erythema with fluctuance. It measures about 6 cm. IMPRESSION: Right buttock ulcer. The biggest issue with him as previously noted by Dr. Villarreal is his severe deconditioning and lack of exercise. This abscess and wound should be readily resolved but the jiang thing in the long run is ambulation and improving conditioning and getting him to move which is not going to be easy. I discussed with the patient the need for going to the operating room for incision and drainage. I will get a culture. The patient seen for decision to operate.
[2016-07-31] MEDS ORDERED: Furosemide 10 mg/mL 2 mL Inj IVPUSH ONE (11:40)
--- NOTE | 2016-07-31 11:44 | PCM.PNMED ---
Subjective Date of Service Jul 31, 2016 Subjective pt couldn't sleep well, not compliants to CPAP denied pain, has baseline SOB, minimally responsive to lasix scheduled for I&D today Exam Vital Signs Vital Sign - Last Date Time Temp Pulse Resp B/P Pulse Ox O2 Delivery O2 Flow Rate FiO2 07/31/16 08:00 74 07/31/16 07:49 36.4 18 132/76 97 Nasal Cannula 2.00 Intake and Output 07/30/16 07/30/16 07/31/16 Cumulative From/Thru 15:00 23:00 07:00 07/29/16 08:29 - 07/31/16 06:37 Intake Total 718 ml 518 ml 300 ml 3094 ml Output Total 575 ml 650 ml 475 ml 2350 ml Balance 143 ml -132 ml -175 ml 744 ml Intake Oral 718 ml 518 ml 300 ml 2054 ml IV Total 1040 ml Output Urine Total 575 ml 650 ml 475 ml 2350 ml # Bowel Movements 0 0 2 2 Exam Markedly obese, elderly male looked weak, AAOX3, coherent NAD, comfortably laying down on the bed no JVD, MMM, no LAD RRR, nl s1, s2 no mrg decreased BS due to body habitus S,ND,NT,normoactive BS+ 2+pitting edema, mild diffuse erythema bilaterally, no ulcer, IVs and Medications Medications Reviewed: Medications were reviewed in detail Lab and Diagnostics Result Diagram: 07/31/1612 07/31/16 0712 X-Rays, CTs and MRIs PROCEDURE: X-RAY CHEST ONE VIEW, PORTABLE ([id number]) INDICATIONS: SHORTNESS OF BREATH TECHNIQUE: One view of the chest was acquired. COMPARISON: [facility], CR, XR CHEST 1VW (PORTABLE), 04/28/2016, 14: 23. FINDINGS: Surgical changes and devices: None. Lungs and pleura: No pleural effusions or pneumothorax. Lungs are clear. Mild prominence of pulmonary vascularity but no confluent pulmonary edema. Mediastinum: Mediastinal contours appear normal. Heart size is mildly increased. Bones and chest wall: No suspicious bony lesions. Overlying soft tissues appear unremarkable. IMPRESSION: Mild cardiomegaly. No definitive CHF. Dictated by: Cely Jurado M.D. on 07/29/2016 at 9:10 Approved by: Cely Jurado M.D. on 07/29/2016 at 9:15 Assessment & Plan 75-year-old male with markedly obese BMI57, hypertension, diabetes, hyperlipidemia, MATILDE on CPAP(not compliant recently), sCHF p/w Generalized Weakness, lightheadedness, chills acute, active Constitutional sx with generalized Weakness, lightheadedness, chills, POA, likely from underlying infection with soft tissue infection with abscess, suspected UTI initially given undertreated pseudomonas from last time but UCX ngtd. advance CHF with high catabolic state possible -CFX 1dose given in ED, started cefepime 2g q8h empirically, added clindamycin then switched to flagyl per ID given risk of c.diff -trends fever curve, PCT, ESR -awaits BCXx2 from ED -miles cath inserted in ED, d/gurjit 07/30 chronic systolic heart failure, POA, last TTE showed EF of 45%, apical moderate hypokinesis in . repeat TTE suboptimal, LV function preseved. -started diuretics, 20mg iv, increase to 40mg iv tomorrow, added 20mg iv one dose given minimal response, monitor i/o, daily wt -O2 supplement as needed Lt buttock abscess with pus, POA, found by Wound care service 07/30, -tentative plan for I&D today, appreciate input -abx as above, follow wound culture post-op chronic, stable MATILDE on CPAP, resumed but pt is refusing, HTN, continue diltiazem HLD, continue statin DM, mildly off target, continue lispro SS, added [id number], a1c6.8, fasting glc in target. dispo:likely 3-4more days, diet:resume diet: cardiac, diabetic, post-op dvt ppx:HSQ DNR, DNI confirmed with patient verbally at the bedside Resuscitation Status: DNR/DNI:Do Not Resuscitate/Intubate Time spent 35min Nessa Campbell MD Jul 31, 2016 11:44
[2016-07-31] MEDS ORDERED: Propofol 10,000 mCg/mL 20 mL Inj ONE (13:40)
[2016-07-31] MEDS ORDERED: Bupivacaine-MPF 0.5% 30 mL Inj INFILTRATE ONE (14:30)
[2016-07-31] MEDS ORDERED: Lactated Ringer's 500 ML IV PRN (15:51)
--- NOTE | 2016-07-31 15:51 | PCM.HPANE ---
Patient Data Date of Service: Jul 31, 2016 Surgeon Admitting Provider:Nessa Campbell MD Attending Provider:Nessa Campbell MD Primary Care Physician:Vladislav Patel DO Other Provider: Reason for Visit Sepsis Ht/WT & BMI Height (Feet): 5 Height (Inches): 9.00 Weight (Kilograms): 174.800 Body Mass Index 57.08 Allergies Coded Allergies: penicillin G (Verified Allergy, Intermediate, rash, 07/29/16) Past Anesthesia History Anesthesia History: Denies:: Anesthesia Reactions Diabetes History Hx Diabetes?: Yes (type 2, on metformin) Current Bedside Blood Glucose: 138 MRSA MRSA: No Medications Blood Thinner: Plavix Hypertension Medication: Yes Home Meds Incl Beta Salvador: Yes Date Beta Salvador Taken: Jul 31, 2016 Time Beta Salvador Taken: 09:11 Active Scripts Risperidone 1 Mg Tablet1 Mg PO DAILY #10 TABLET Ref 0 Prov:Everett Arboleda 11/25/15 Reported Medications Hydrocodone-Acetaminophen 7.5-325 mg 1 Each Tablet1 Tab PO Q6H PRN For Pain #90 07/29/16 Omeprazole 20 Mg Capsule.dr20 Mg PO DAILY #90 07/29/16 Hydrochlorothiazide 12.5 Mg Bwwwhjh11.5 Mg PO DAILY #90 07/29/16 Clopidogrel 75 Mg Yvfjex32 Mg PO DAILY #30 07/29/16 Verapamil ER 240 Mg Yomi319 Mg PO DAILY #30 07/29/16 Pramipexole Dihydrochloride 0.25 Mg Tablet0.25-0.5 Mg PO HS #60 Take 1-2 hrs before bedtime 07/29/16 Metoprolol Succinate ER 25 Mg Tab.er.24h25 Mg PO DAILY 04/28/16 Lisinopril 10 Mg Qpbpvz47 Mg PO DAILY 11/20/15 Atorvastatin Calcium 40 Mg Enises32 Mg PO HS #90 11/20/15 Verapamil ER 180 Mg Tablet.er180 Mg PO QPM 11/20/15 Metformin 500 Mg Tablet1,000 Mg PO BIDWM 01/03/14 Oxybutynin Chloride 5 Mg Tablet5 Mg PO BID 01/03/14 Clonidine 0.3 Mg Tablet0.3 Mg PO BID 01/03/14 Discontinued Reported Medications Cod Liver Oil/Zinc Oxide (Desitin Diaper Rash 40% Paste)28 Gm Paste..g.1 Applic TOP PRN #1 TUBE Ref 0 04/28/16 Hydrocodone-Acetaminophen 10-325 mg 1 Each Tablet1 Each PO TID PRN For Pain 04/28/16 Naproxen 500 Mg Qph946 Mg PO BID 04/28/16 Multivitamin (Multivitamins)1 Each Capsule1 Each PO DAILY 11/20/15 Hydrochlorothiazide 12.5 Mg Pnuupe35.5 Mg PO DAILY 11/20/15 Verapamil ER 240 Mg Cap24h.ovw969 Mg PO QPM 11/20/15 Meloxicam 15 Mg Upycxn53 Mg PO QAM 09/17/14 Discontinued Scripts Hydrocodone-Acetaminophen 10-325 mg 1 Each Tablet1 Tablet PO TID PRN For Pain # 20 TABLET Prov:Lorenzo,Emi L DO 05/03/16 Ciprofloxacin 500 Mg Pijanj671 Mg PO BID #6 TABLET Prov:Emi Lorenzo L DO 05/03/16 Lorazepam 1 Mg Tablet1 Mg PO BID For Insomnia #10 TABLET Ref 0 Prov:Everett Arboleda 11/25/15 Nitroglycerin SL (Nitrostat)0.4 Mg Subl0.4 Mg SL Q5MIN PRN For Chest Pain #1 Prov:Yola Santos MD 09/21/14 Clopidogrel Bisulfate (Plavix)75 Mg Lcwdmo88 Mg PO DAILY 30 Days Prov:Yola Santos MD 09/21/14 History History of ENT Problems?: Yes HEENT History: Positive for:: Cataracts (both removed) Denies:: Dysphagia Sinus Problem Denture Type: None Teeth Condition: Broken Teeth No Teeth Tooth Decay Hx of Heart Problems?: Yes Cardiovascular History: Positive for:: Chest Pain Edema Hypertension Irregular Heartbeat Denies:: Cardiac Surgery Congestive Heart Failure Heart Murmur Pacemaker Thrombophlebitis Hx of Respiratory Problem?: Yes Respiratory History: Positive for:: Asthma COPD (per ER 01/03/14, pt. unaware- denies at this time) Dyspnea Pneumonia Denies:: Chest Surgery Emphysema Hemoptysis Tuberculosis Hx Neurologic Problems?: No Neurological History: Positive for:: Headaches Denies:: Alzheimer's Disease CVA Dementia Dizziness Parkinson's Disease Seizures Hx of GI Problems?: Yes Hx of Problems?: No Genitourinary History: Denies:: HX of Hemodialysis Kidney Stones Urinary Tract Infection HX of Peritoneal Dialysis: No Male Hx: Denies:: Prostate Problems Scrotal Mass Testicular Surgery Hx Musculoskeletal Problems?: Yes Musculoskeletal History: Denies:: Back Injury Joint Replacement Musculoskeletal Trauma Hx of Psycho/Social Problems?: Yes Psycho Social History: Positive for:: Anxiety Bipolar Disorder (hx of bipolar) Hx Depression Denies:: Suicide Attempt Hx Surgeries?: Yes (stents) Hx Any Other Health Problems?: Yes Other History: Denies:: Cancer Endocrine Disease Hospitalization (09/2014) Thyroid Disease History Blood Transfusions: Positive for:: Accept Blood Products? Denies:: Blood Transfusions Hx Diabetes: Yes (type 2, on metformin)Bedside Blood Glucose: 138 Hx Alcohol Use: NoHx Substance Use: No Smoking Status: Former Smoker Have You Smoked inLast 12 mo: No Stop/Bang Treated for Sleep Apnea?: Yes Do You Have a CPAP Machine?: Yes S-Snoring: Do You Snore Loudly: Yes T-Tired: feel tired, fatigued: Yes O-Obsered: Observed not breath: Yes P-Blood Pressure: treated: Yes B- Body Mass Index > 35 kg/m2: Yes A- Age over 50: Yes N- Neck Large Circumference: Yes G- Gender Male: Yes MATILDE Total Score: 8 MATILDE Risk Assessment: High Risk, =/>3 Yes MATILDE Category 1: Yes Risk Assessment Category Category 1A: Patient has history of documented sleep apnea, and HAS NOT received any narcotic, sedative or anesthesia administration during this stay. Category 1B: Patient has history of documented sleep apnea, and HAS received any narcotic , sedative or anesthesia administration during this stay Category 2: Patient has SUSPECTED Obstructive Sleep Apnea, and HAS received any narcotic , sedative or anesthesia administration during this stay. Category 3: Patient has SUSPECTED Obstructive Sleep Apnea and HAS NOT received narcotic, sedative or anesthesia administration during this stay. Category 4: Outpatient in Procedural Areas with known sleep apnea or who screen positive for High Risk via the STOP/BANG questionnaire. Exam Exam Vital Signs Vital Signs Date Time Temp Pulse Resp B/P Pulse Ox O2 Delivery O2 Flow Rate FiO2 07/31/16 12:50 36.7 74 18 145/83 97 Nasal Cannula 2.00 07/31/16 09:00 Supplement Oxygen 07/31/16 08:00 74 07/31/16 07:49 36.4 75 18 132/76 97 Nasal Cannula 2.00 General Appearance: Alert, Oriented X3 HEENT/AIRWAY: MP 1 Lungs: Clear to Auscultation Heart: Exam Unremarkable Meds/Labs/Diagnostics Admission Meds Current Medications Senna (Senokot) 17.2 mg HS PO Last administered on 07/30/16 21:44; Start 07/30 at 21:00 Insulin Glargine (Lantus Insulin Inj) 10 unit HS SUBQ Last administered on 07/30 21:43; Start 07/30/16 at 21:00 Metronidazole HCl (Flagyl) 500 mg Q8 PO Last administered on 07/31/16 09:12; Start 07/30/16 at 16:30 Furosemide (Lasix Inj) 20 mg ONCE ONCE IVPUSH Last administered on 07/31/16 12:51; Start 07/31/16 at 11:40; Stop 07/31/16 at 11:43; Status DC Bedside Blood Glucose: 138 Labs Test 07/29/16 08:45 07/29/16 10:59 07/29/16 11:38 07/29/16 16:42 Prothrombin Time 10.7sec (8.1-12.5) Prothromb Time International Ratio 1.00ratio Troponin T 0.010ug/L (0.0-0.011) Pro-B-Type Natriuretic Peptide 734.1pg/mL (0-486) Lipase 14U/L (13-60) Hold [place] Top Tube Received (Received) Urine Color Yellow (YELLOW) Urine Appearance Cloudy (CLEAR,HAZY) Urine pH 6.0 (5.0-8.0) Urine Specific [place] 1.020 (1.003-1.035) Urine Protein Tracemg/dL (NEG,TRACE) Urine Glucose (UA) Negativemg/dL (NEGATIVE) Urine Ketones Negativemg/dL (NEGATIVE) Urine Occult Blood Negative (NEGATIVE) Urine Nitrite Negative (NEGATIVE) Urine Bilirubin Negative (NEGATIVE) Urine Urobilinogen Normalmg/dL (NORMAL) Urine Leukocyte Esterase Negative (NEGATIVE) Urine RBC 0-2/hpf (0-2) Urine WBC 0-5/hpf (0-5) Urine Epithelial Cells Occasional/hpf (NONE-MOD) Urine Crystals Amorphous urates (NONE Urine Bacteria Moderate/hpf (NONE-FEW) Urine Hyaline Casts None/lpf (NONE) Urine Granular Casts None seen (NONE SEEN) Urine Waxy Casts None seen (NONE SEEN) Urine Red Blood Cell Casts None seen (NONE SEEN) Urine White Blood Cell Casts None seen (NONE SEEN) Urine Mucus Present (None Seen) Urine Trichomonas None seen (NONE SEEN) Urine Yeast None (NONE SEEN) Urinalysis Comment None Urine Culture Reflexed Indicated Hold Urine Received (Received) Erythrocyte Sedimentation Rate 79mm/hr (0-30) Lactic Acid Level 2.5mmol/L (0.4-2.0) Test 07/30/16 06:00 07/31/16 07:12 Hemoglobin A1c 6.8% (4.8-5.6) Procalcitonin 0.43ng/mL (0.00-0.08) White Blood Count 17.7th/mm3 (3.8-10.1) Red Blood Count 3.66mil/mm3 (4.40-5.80) Hemoglobin 10.4g/dL (13.8-17.2) Hematocrit 33.3% (41.0-50.0) Mean Corpuscular Volume 91.0fL (81-100) Mean Corpuscular Hemoglobin 28.4pg (27.0-35.0) Mean Corpuscular Hemoglobin Concent 31.2% (32.0-37.0) Red Cell Distribution Width 14.7% (12.3-15.4) Platelet Count 276bil/L (150-400) Neutrophils (%) (Auto) 82.3% (40-74) Lymphocytes (%) (Auto) 5.3% (14-46) Monocytes (%) (Auto) 10.0% (4-12) Eosinophils (%) (Auto) 2.0% (0-5) Basophils (%) (Auto) 0.2% (0-3) Sodium Level 138mEq/L (134-144) Potassium Level 3.9mEq/L (3.5-5.2) Chloride Level 97mEq/L (97-108) Carbon Dioxide Level 25mmol/L (18-29) Blood Urea Nitrogen 24mg/dL (8-27) Creatinine 0.83mg/dL (0.76-1.27) Estimat Glomerular Filtration Rate 96mL/min (>59) Glucose Level 163mg/dL (60-99) Calcium Level 8.7mg/dL (8.5-10.1) Phosphorus Level 3.8mg/dL (2.5-4.9) Magnesium Level 1.9mg/dL (1.6-2.6) Total Bilirubin 0.5mg/dL (0.0-1.2) Aspartate Amino Transf (AST/SGOT) 25U/L (0-50) Alanine Aminotransferase (ALT/SGPT) 29U/L (0-44) Alkaline Phosphatase 73U/L (25-160) Total Protein 5.7g/dL (6.4-8.4) Albumin 3.2g/dL (3.4-5.0) Plan Impression Patient chart reviewed, patient interviewed and anesthestic plan with risks, benefits, and alternatives discussed, and informed consent obtained. NPO per Anesth. Guidelines: Yes ASA Physical Status: ASA3 Severe Disease Anesthetic Plan: MAC Bene/Risks/Altern/Consents: Yes HP Complete Prior to Induction: Yes Sky Santana MD Jul 31, 2016 15:51
[2016-07-31] MEDS ORDERED: Dexamethasone 4 mg/mL Inj IVPUSH PRN (15:55)
[2016-07-31] MEDS ORDERED: Ondansetron 2 mg/mL 2 mL Inj IVPUSH PRN (15:55)
[2016-07-31] MEDS ORDERED: EPHEDrine Sulfate 50 mg/mL Inj IVPUSH PRN (15:55)
[2016-07-31] MEDS ORDERED: MetoCLOpramide 5 mg/mL 2 mL Inj IVPUSH PRN (15:55)
[2016-07-31] MEDS ORDERED: HYDROmorphone 1 mg/mL Inj IVPUSH PRN (15:55)
[2016-07-31] MEDS ORDERED: fentaNYL-PF 50 mCg/mL 2 mL Inj IVPUSH PRN (15:55)
[2016-07-31] MEDS ORDERED: Phenylephrine 10,000 mCg/mL Inj IVPUSH PRN (15:55)
[2016-07-31] MEDS ORDERED: Lactated Ringer's 1,000 ML IV ONE (16:02)
--- NOTE | 2016-07-31 16:04 | NUR ---
Transfer to OR Pt. transferred to OR on [facility] bed at 1550. CPAP brought down per anesthesia request. All belongings with pt because he will be transferring to [facility] room 1003 after recovery. Report called to [facility] ANTOINE Read IV patent, consent signed, pt in stable condition.
[2016-07-31] MEDS: Lactated Ringer's 1,000 ML IV SCH ×2 (17:25→22:58)
--- NOTE | 2016-07-31 18:01 | OP ---
[address] [address] OPERATIVE REPORT PATIENT: SALVADOR CASTRO : 1940 MR#: [id number] ADMIT: 07/29/2016 JOB ID: [id number] DATE OF SURGERY: 07/31/2016 PREOPERATIVE DIAGNOSIS(ES): Right buttock abscess. POSTOPERATIVE DIAGNOSIS(ES): Right buttock abscess. PROCEDURE: Incision and drainage large right buttock abscess, complex. SURGEON: Joseph De Souza MD. INDICATIONS: A 76-year-old man who was admitted with an unexplained bacteremia and yesterday was observed to have a right buttock abscess. After discussing options with the patient, it was elected to proceed with incision and drainage. He has severe significant comorbidities including a BMI of 57 and sleep apnea, but again, after discussing options with the patient, it was elected to proceed with incision and drainage. FINDINGS: He had a large buttock abscess. There was a small amount of spontaneous drainage through a pinhole in his right mid medial buttock but it tracked down into the perineum, into the right perianal region. I do not believe that this is primarily a perirectal abscess, but I cannot definitively say that it is not; but I can say that it was completely drained, and with drained and with palpation, the track did not go to the anus. PROCEDURE: In the operating room, he was placed in the left lateral decubitus position. The procedure was done in his hospital bed for safety and also because of difficulty in moving him. A procedural time-out was held. Dr. Sky Santana provided sedation, which was done very well but also kept on a very light side. With Betadine, he was prepped. I injected 0.5% plain bupivacaine and 1% plain lidocaine. With a searching needle, I was able to get some pus. I made a transverse incision and entered the abscess. With the initial drainage, I kept getting pus from a larger space and ultimately I found that it was inferior to the exit site and then entered a large pocket and drained a large amount of pus. The pus was sent for culture. After feeling confident of completely breaking loculations and draining the entire space, I irrigated it with saline and then packed it with one-inch vag packing. It was then covered with 4x4s and an ABD. He tolerated the procedure well. Had stable vital signs. No evidence of respiratory distress. He was then transferred back to his room in stable condition. The estimated blood loss was 10 cc. There were no apparent complications. The final sponge, needle and instrument counts were announced as correct, and the patient was returned to recovery room in stable condition. MODIFIER-22: Because of his BMI of 57 and the size of the abscess, it was significantly more difficult in just exposing the site of the abscess in order to drain, irrigate and pack this abscess. BANDAR
--- NOTE | 2016-07-31 18:19 | NUR ---
POST OP Received patient from OR in bariatric hospital bed. Alert and oriented, answering all questions. C/O 10/10 pain to R buttock and c/o being hungry. Medicated with 2 tabs norco. Denies any nausea, SOB or chest pain. Advanced to HH/ADA diet for dinner. R buttock incision was left open- packing and dressing in place-C/D/I. Oriented to new room and staff. IV fluids running. All personal belongings came down with him from the OR. Continue to monitor.
[2016-07-31] MEDS: Verapamil SR 180 mg ER12 Tablet PO SCH (21:09)
[2016-07-31] MEDS: Insulin GLARgine 100 Unit/mL Syringe SUBQ SCH (21:22)
[2016-08-01] VITALS (9 sets, daily range): BP systolic 134–171; BP diastolic 61–83; PULSE 53–100; RESP 16–20; O2SAT 94–97
[2016-08-01] MEDS: HYDROcodone-APAP 5-325 mg Tablet PO PRN ×6 (01:17→23:59)
[2016-08-01] MEDS: Heparin 5,000 Unit/mL Inj SUBQ SCH ×4 (01:24→23:47)
[2016-08-01 06:51] LABS: BASOPHILS % (AUTO) 0.3 % (0-3); EOSINOPHILS % (AUTO) 2.7 % (0-5); MONOCYTES % (AUTO) 11.5 % (4-12); Mean Corpuscular Hemoglobin 28.2 pg (27.0-35.0); Mean Corpuscular Volume 91.7 fL (81-100); Platelet Count 329 bil/L (150-400)
--- NOTE | 2016-08-01 07:20 | NUR ---
Bed Mobility/ Pain Patient having difficulty with bed mobility, two to three person assist with turns and repositioning. Patient requesting Pain medications sooner than Meds are due. Refused to use CPAP machine this evening despite encouragement.
[2016-08-01 07:29] LABS: Magnesium 1.9 mg/dL (1.6-2.6); Phosphorus 2.9 mg/dL (2.5-4.9)
[2016-08-01] MEDS: Insulin LISPRO 300 Unit/3 mL Inj SUBQ SCH ×4 (08:00→22:19)
[2016-08-01] MEDS ORDERED: Magnesium Hydroxide 10 mL Oral Concentration PO PRN (09:20)
--- NOTE | 2016-08-01 09:28 | PCM.PNMED ---
Subjective Date of Service Aug 01, 2016 Subjective Pain and buttock adequately controlled with his pain medications. Does have some nausea this morning. Still has not had a bowel movement but is passing gas per rectum Exam Vital Signs Vital Sign - Last Date Time Temp Pulse Resp B/P Pulse Ox O2 Delivery O2 Flow Rate FiO2 08/01/16 05:53 94 08/01/16 05:39 37.0 16 142/61 97 Nasal Cannula 2.50 Intake and Output 07/31/16 07/31/16 08/01/16 Cumulative From/Thru 15:00 23:00 07:00 07/29/16 08:29 - 08/01/16 05:40 Intake Total 800 ml 3894 ml Output Total 1020 ml 3370 ml Balance -220 ml 524 ml Intake Oral 400 ml 2454 ml IV Total 400 ml 1440 ml Output Urine Total 1000 ml 3350 ml Estimated Blood Loss 20 ml 20 ml # Voids 1 1 # Bowel Movements 2 Exam General: Alert and oriented, no acute distress Heart: Regular Lungs: Clear anteriorly and laterally Abdomen: Soft, quite obese, non-tender, bowel tones present Extremities: 1-2+ pedal edema and mild erythema of the lower half of the lower legs bilaterally IVs and Medications Medications Reviewed: Medications were reviewed in detail Lab and Diagnostics Result Diagram: 08/01/1635 08/01/1635 X-Rays, CTs and MRIs PROCEDURE: X-RAY CHEST ONE VIEW, PORTABLE ([id number]) INDICATIONS: SHORTNESS OF BREATH TECHNIQUE: One view of the chest was acquired. COMPARISON: [facility], CR, XR CHEST 1VW (PORTABLE), 04/28/2016, 14: 23. FINDINGS: Surgical changes and devices: None. Lungs and pleura: No pleural effusions or pneumothorax. Lungs are clear. Mild prominence of pulmonary vascularity but no confluent pulmonary edema. Mediastinum: Mediastinal contours appear normal. Heart size is mildly increased. Bones and chest wall: No suspicious bony lesions. Overlying soft tissues appear unremarkable. IMPRESSION: Mild cardiomegaly. No definitive CHF. Dictated by: Cely Jurado M.D. on 07/29/2016 at 9:10 Approved by: Cely Jurado M.D. on 07/29/2016 at 9:15 Assessment & Plan 75-year-old male with markedly obese BMI57, hypertension, diabetes, hyperlipidemia, MATILDE on CPAP(not compliant recently), sCHF p/w Generalized Weakness, lightheadedness, chills # Right Buttock Abscess Constitutional sx with generalized Weakness, lightheadedness, chills, POA, likely from underlying infection with soft tissue infection with abscess, suspected UTI initially given undertreated pseudomonas from last time but UCX negative -CFX 1dose given in ED, started cefepime 2g q8h empirically, added clindamycin then switched to flagyl per ID given risk of c.diff - I & D done 07/[address] Feliciano, abscess found to be large and complex - no results yet from culture obtained at I & D # chronic systolic heart failure, POA, last TTE showed EF of 45%, apical moderate hypokinesis in . repeat TTE suboptimal, LV function preserved. - home meds low dose HCTZ (held), lisin & metop continued - started lasix 20mg iv daily increased this am to 40mg iv daily monitor i/o, daily wt - O2 supplement as needed # Diabetes mellitus, type II - glucoses mostly 100's - per med rec it appears only home rx is metformin (currently held) - Lantus 10 HS started last juwan - Lispro SS chronic, stable Morbid Obesity MATILDE on CPAP, resumed but pt is refusing, HTN, continue home meds HLD, continue statin dispo: unclear, suspect will need SNF, will get PT eval, currently 2-3 person assist just to turn in bed diet:resume diet: cardiac, diabetic dvt ppx:HSQ DNR, DNI confirmed with patient verbally at the bedside (per Dr Dickson) Resuscitation Status: DNR/DNI:Do Not Resuscitate/Intubate Kelsey Jones MD Aug 01, 2016 09:28
--- NOTE | 2016-08-01 09:29 | NUR ---
JANY signed by pt POONAM Lopez
--- NOTE | 2016-08-01 10:30 | NUR ---
Social Work: Continued Discharge Planning Data: EMR/SW initial assessment reviewed. Pt is on day 3 of hospitalization, admitted for sepsis per H&P. SW confirmed with RN that pt is a 3-person assist in hospital bed and will likely need PT. PT has been ordered. SW met with pt to discuss discharge planning. Pt stated that he will need transportation at time of discharge. Pt is independent at baseline with use of a walker at home. Pt does not use 02 at home but is currently on 02 at hospital. SW confirmed that they will follow-up with pt after PT evaluation to explore discharge planning options. SW confirmed advanced directive paperwork has been completed and encourage pt to bring documentation to hospital. SW will continue to follow. Assessment: Based on pt's current presentation, he will likely need SNF or HH services. PT will meet with pt. SW will follow-up with pt after PT evaluation to determine needs. Plan: SW will follow-up with pt after PT evaluation to better determine needs at discharge. SW will continue to follow. POONAM Lopez
[2016-08-01] MEDS: Cefepime Inj 2,000 MG in Dextrose 5% Minibag Plus 100 ML IV SCH ×3 (10:33→23:47)
[2016-08-01] MEDS: Furosemide 10 mg/mL 4 mL Inj IVPUSH SCH (10:33)
[2016-08-01] MEDS: risperiDONE 1 mg Tablet PO SCH (10:35)
[2016-08-01] MEDS: MeTOProlol XL 25 mg ER24 Tablet PO SCH (10:35)
[2016-08-01] MEDS: Polyethylene Glycol (PEG) 17 Gm Powder PO SCH ×2 (10:37→19:54)
--- NOTE | 2016-08-01 13:12 | PROG NOTE ---
[address] [address] PROGRESS NOTE PATIENT: SALVADOR CASTRO : 1940 MR#: [id number] ADMIT: 07/29/2016 JOB ID: [id number] DATE: 08/01/2016 The patient is seen in followup. He is eating breakfast. He feels much better than before his abscess was drained. IMPRESSION: Improved. PLAN: Remove packing tomorrow.
--- NOTE | 2016-08-01 16:01 | NUR ---
VOIDING P-Patient is on Lasix for dieresis treatment, not cooperating with care in voiding. Bed linen changes complete x3 this shift. I- Patient informed that he needs to try to get up to void using urinal as he states he does at home. E- Patient has voided 1150ml per urinal which has been wedged under his pannus between legs. Patient continues to refuse to help with voiding. Able to stand with PT but only briefly, wound dressing reinforced x1 with ABD.
--- NOTE | 2016-08-01 16:18 | NUR ---
Evaluation completed. Please go to "Notes" then click on "Assessments and Notes" (bottom left corner of screen). Then select appropriate discipline tab on top of screen.
[2016-08-01] MEDS: Verapamil SR 180 mg ER12 Tablet PO SCH (19:54)
[2016-08-01] MEDS: Verapamil SR 240 mg ER12 Tablet PO SCH (19:54)
[2016-08-01] MEDS: Insulin GLARgine 100 Unit/mL Syringe SUBQ SCH (22:18)
[2016-08-02] VITALS (9 sets, daily range): BP systolic 120–160; BP diastolic 67–81; PULSE 60–94; RESP 16–24; O2SAT 91–94
[2016-08-02 05:16] LABS: BASOPHILS % (AUTO) 0.5 % (0-3); EOSINOPHILS % (AUTO) 4.8 % (0-5); MONOCYTES % (AUTO) 10.5 % (4-12); Mean Corpuscular Hemoglobin 29.1 pg (27.0-35.0); Mean Corpuscular Volume 91.6 fL (81-100); NEUTROPHILS % (AUTO) 71.6 % (40-74); Platelet Count 354 bil/L (150-400)
[2016-08-02] MEDS: HYDROcodone-APAP 5-325 mg Tablet PO PRN ×5 (05:34→23:22)
[2016-08-02 05:37] LABS: Magnesium 1.8 mg/dL (1.6-2.6); Phosphorus 2.8 mg/dL (2.5-4.9)
--- NOTE | 2016-08-02 06:36 | NUR ---
Med mobility Patient more active in care able to assist with turning in bed. Bed mobility continues to be a struggle. Pain is persistent likely due to the difficulty of maintaining a comfortable position. Wound dressing was changed as there was a moderate amount of drainage.
[2016-08-02] MEDS: Cefepime Inj 2,000 MG in Dextrose 5% Minibag Plus 100 ML IV SCH ×3 (07:55→23:50)
[2016-08-02] MEDS: Heparin 5,000 Unit/mL Inj SUBQ SCH ×2 (07:56→17:20)
[2016-08-02] MEDS: Furosemide 10 mg/mL 4 mL Inj IVPUSH SCH (07:56)
[2016-08-02] MEDS: Insulin LISPRO 300 Unit/3 mL Inj SUBQ SCH ×4 (07:56→22:29)
[2016-08-02] MEDS: MeTOProlol XL 25 mg ER24 Tablet PO SCH (07:57)
[2016-08-02] MEDS: risperiDONE 1 mg Tablet PO SCH (07:57)
[2016-08-02] MEDS: Polyethylene Glycol (PEG) 17 Gm Powder PO SCH ×2 (10:17→20:48)
--- NOTE | 2016-08-02 10:23 | PCM.PNSURG ---
Subjective Date of Service: Aug 02, 2016 Date of Service: Aug 02, 2016 Visit Information: Reason for Visit Sepsis Surgery/Surgery Date I & D RIGHT BUTTOCK ABCESS 07/31/16 Post-Op Day # 2 Date of Admission: Jul 29, 2016 at 13:35 Hospital Day # Subjective: Patient seen POD 2 from I&D of right buttock abscess. Patient reports minimal discomfort today. Tolerating carb controlled diet. No subjective fevers. Bed ridden. Postop General: No Complaints Gastrointestinal: Good Appetite, Passing Stool Objective Vital Sign- Last 8 Hours Date Time Temp Pulse Resp B/P Pulse Ox O2 Delivery O2 Flow Rate FiO2 08/02/16 09:22 80 08/02/16 09:01 36.4 92 20 121/73 91 Room Air 08/02/16 08:07 36.5 83 16 120/76 92 Room Air 08/02/16 05:38 Supplement Oxygen 08/02/16 04:51 36.8 94 18 123/76 92 Room Air Intake and Output- Last 8 Hour 08/02/16 Cumulative From/Thru 07:00 07/29/16 08:29 - 08/02/16 06:27 Intake Total 2656 ml 8169 ml Output Total 200 ml 5070 ml Balance 2456 ml 3099 ml Intake Oral 640 ml 4603 ml IV Total 2016 ml 3566 ml Output Urine Total 200 ml 5050 ml Estimated Blood Loss 20 ml # Voids 2 5 # Bowel Movements 3 General: Oriented X3 Lungs: Clear to Auscultation SURGICAL WOUND : Wound General Appearence: Warmth to palpation, Open, Wound under dressing Dressing & Drainage Status: Dressing Removed (packing removed.), No Odor Result Diagram: 08/02/16 0500 08/02/16 0500 Assessment & Plan Impression Right buttock abscess-improving leukocytosis now [id number] Problems: Plan Continue current antibiotics Removed packing, cleaned and manually interrogated wound. ABD pad placed. Await wound c&s otherwise continue current management. Pain Management: Morphine/dilaudid VTE Prophylaxis: Sub-Q Heparin (Unfractionated) Resuscitation Status: DNR/DNI:Do Not Resuscitate/Intubate Demond Santos PA-C Aug 02, 2016 10:23
--- NOTE | 2016-08-02 11:15 | NUR ---
Social Work: Readiness for Discharge Data: EMR reviewed. Pt is on day 4 of hospitalization for sepsis. Pt lives with roommate in [place] and uses a walker at baseline. PT recommended pt go to SNF for rehabilitation. Pt is currently a 3-person assist for bed mobility. SW met with pt to discuss SNF placement. SW provided pt with SNF choice list and pt chose [facility]. SW faxed PASRR and face sheet to [facility] and provided access in [employer]. Insurance authorization will need to be obtained prior to discharge. PPW and PASRR in chart. SW will continue to follow. Assessment: Pt to benefit from SNF. Plan: Referral has been made to [facility] for SNF. Insurance authorization will need to be obtained prior to discharge. PPW and PASRR in chart. SW will continue to follow. POONAM Lopez Addendum: 08/03/16 at 1542 by [place] SW received call from pt's friend Yoselyn Gonzalez. Pt did not want SW to speak with friend. SW agreed to take phone call and explained that SW can't provide information about pt. No information was provided. Friend wanted to inform SW of concerns at home. Pt is decisional and is not a vulnerable adult. Pt is able to make his own decisions. Pt has discharge plan to go to [facility] at discharge. POONAM Lopez
--- NOTE | 2016-08-02 11:22 | NUR ---
SNF choice list provided
--- NOTE | 2016-08-02 11:33 | NUR ---
[facility] can accept with Dr. Vladislav Patel to follow. Insurance authorization will need to be obtained prior to discharge. POONAM Lopez
--- NOTE | 2016-08-02 14:28 | PCM.PNMED ---
Subjective Date of Service Aug 02, 2016 Subjective Denies any new issues/complaints Exam Vital Signs Vital Sign - Last Date Time Temp Pulse Resp B/P Pulse Ox O2 Delivery O2 Flow Rate FiO2 08/02/16 12:38 36.4 91 20 136/81 94 Room Air 08/01/16 19:25 2.00 Intake and Output 08/01/16 08/01/16 08/02/16 Cumulative From/Thru 15:00 23:00 07:00 07/29/16 08:29 - 08/02/16 06:27 Intake Total 753 ml 866 ml 2656 ml 8169 ml Output Total 450 ml 1050 ml 200 ml 5070 ml Balance 303 ml -184 ml 2456 ml 3099 ml Intake Oral 753 ml 756 ml 640 ml 4603 ml IV Total 110 ml 2016 ml 3566 ml Output Urine Total 450 ml 1050 ml 200 ml 5050 ml Estimated Blood Loss 20 ml # Voids 2 2 5 # Bowel Movements 1 3 General: Alert, Cooperative, No Acute Distress Head: Normal Eyes: Scleral Anicteric Mouth: Mucous Membr Moist/[place] Neck: Supple Chest & Lungs: Chest Wall Normal, Clear to auscultation & percussion Cardiovascular: Regular Rate/Rhythm Abdomen: Non-tender, Non-distended, Normoactive bowel tones, Soft Extremities: Other (1+ pedal edema and mild erythema of the lower half of the lower legs bilaterally) Skin: Other (Right buttock decubitus ulcer reviewed with wound nurse and tito WILEY) Neurological: Grossly Neurologically Intact, Normal Speech IVs and Medications Medications Reviewed: Medications were reviewed in detail Lab and Diagnostics Result Diagram: 08/02/16 0500 08/02/16 0500 X-Rays, CTs and MRIs PROCEDURE: X-RAY CHEST ONE VIEW, PORTABLE ([id number]) INDICATIONS: SHORTNESS OF BREATH TECHNIQUE: One view of the chest was acquired. COMPARISON: [facility], CR, XR CHEST 1VW (PORTABLE), 04/28/2016, 14: 23. FINDINGS: Surgical changes and devices: None. Lungs and pleura: No pleural effusions or pneumothorax. Lungs are clear. Mild prominence of pulmonary vascularity but no confluent pulmonary edema. Mediastinum: Mediastinal contours appear normal. Heart size is mildly increased. Bones and chest wall: No suspicious bony lesions. Overlying soft tissues appear unremarkable. IMPRESSION: Mild cardiomegaly. No definitive CHF. Dictated by: Cely Jurado M.D. on 07/29/2016 at 9:10 Approved by: Cely Jurado M.D. on 07/29/2016 at 9:15 Assessment & Plan 75-year-old male with markedly obese BMI57, hypertension, diabetes, hyperlipidemia, MATILDE on CPAP(not compliant recently), sCHF p/w Generalized Weakness, lightheadedness, chills # Acute Right Buttock Abscess. Present on admission. - Post Incision and drainage large right buttock abscess on 07/31/16 - Appreciate ID and surgery consults. Will followup with recommendations - Continue with IV Cefepime and PO Flagy for now. - Followup final culture results. # Chronic diastolic heart failure. Compensated - Echo on 07/30 suboptimal but notable for "left ventricular systolic function is preserved." - Continue with current home meds - Ins/Outs continue to remain positive - Continue with IV Lasix 40mg daily and followup I/O and renal function # Diabetes mellitus, type II. Poorly controlled. - HgA1C 6.8 - Continue to hold home Metformin - Continue with Lantus (started during this hospital) and titrate up - Lispro SS # Morbid Obesity - Nutrition and diabetic teaching # History of obstructive sleep apnea. Stable. - CPAP resumed but pt reportedly is refusing (per earlier notes) # History of hypertension. stable - Continue with current meds # Hyperlipidemia. - Continue statin Dispo: 2-3 days pending culture results and placement Resuscitation Status: DNR/DNI:Do Not Resuscitate/Intubate Everett Arboleda Aug 02, 2016 14:28 Everett Arboleda Aug 02, 2016 14:28
--- NOTE | 2016-08-02 15:02 | NUR ---
Wound care Patient seen at bedside for dressing change of right buttock, There is a 2 cm incision at the right buttock with removal of packing the wound is noted to track towards the rectum approximately 8 cms. Wound was irrigated copiously with saline,hydrogen peroxide and betadine. Surgery was present for dressing change and recommendation was made to discontinue packing as abscess is well drained at this time. Recommend these dressings be changed daily.
--- NOTE | 2016-08-02 19:04 | NUR ---
ACTIVITY Hydrocodone 2 tabs PO has been helpful for pain control. Tolerating liquids PO and his diet well. Denies nausea. No emesis noted. Denies SOB. Patient was able to get OOB and took a few steps with a FWW and PT. Dressing is CDI.
[2016-08-02] MEDS: Verapamil SR 180 mg ER12 Tablet PO SCH (20:50)
[2016-08-02] MEDS: Verapamil SR 240 mg ER12 Tablet PO SCH (20:50)
[2016-08-02] MEDS: Insulin GLARgine 100 Unit/mL Syringe SUBQ SCH (23:49)
[2016-08-03] VITALS (7 sets, daily range): BP systolic 126–164; BP diastolic 78–90; PULSE 65–98; RESP 18–22; O2SAT 93–96
[2016-08-03] MEDS: Heparin 5,000 Unit/mL Inj SUBQ SCH ×3 (00:42→16:50)
[2016-08-03] MEDS: Cefepime Inj 2,000 MG in Dextrose 5% Minibag Plus 100 ML IV SCH (08:42)
[2016-08-03] MEDS: Insulin LISPRO 300 Unit/3 mL Inj SUBQ SCH ×4 (08:43→21:17)
[2016-08-03] MEDS: Furosemide 10 mg/mL 4 mL Inj IVPUSH SCH (08:45)
[2016-08-03] MEDS: Polyethylene Glycol (PEG) 17 Gm Powder PO SCH ×2 (08:47→20:30)
[2016-08-03] MEDS: risperiDONE 1 mg Tablet PO SCH (08:48)
[2016-08-03] MEDS: MeTOProlol XL 25 mg ER24 Tablet PO SCH (08:49)
--- NOTE | 2016-08-03 08:52 | NUR ---
JANY signed. POONAM Garcia
[2016-08-03] MEDS: HYDROcodone-APAP 5-325 mg Tablet PO PRN ×4 (09:56→23:12)
--- NOTE | 2016-08-03 11:50 | PROG NOTE ---
[address] [address] PROGRESS NOTE PATIENT: SALVADOR CASTRO : 1940 MR#: [id number] ADMIT: 07/29/2016 JOB ID: [id number] DATE: 08/03/2016 INFECTIOUS DISEASE FOLLOW UP NOTE: REASON FOR FOLLOWUP: Large MSSA buttock abscess. INTERVAL HISTORY: Recall that this is the super morbidly obese 76-year-old gentleman I saw back on Tuesday, the 30 of July, with a large abscess of his buttock. At that time, the patient was awaiting his surgical drainage and the antibiotics that we had employed at that time were cefepime and Flagyl. The patient was subsequently taken to the operating room by Dr. Joseph De Souza on July 31 and a large abscess was shelled out and drained with packing placed. Subsequently the patient reports that there has been a big decrease in his buttock pain and that he has generally felt better. No fevers, chills or sweats. No change in his chronic shortness of breath and no abdominal complaint. We also re-reviewed his PENICILLIN allergy history and the patient reminded me that he has a skin rash to PENICILLIN. PHYSICAL EXAMINATION: Reveals a super morbidly obese gentleman who is consistently afebrile. Temperature 36.7, pulse 84, respiratory rate 20, blood pressure 126/82, saturating well on room air. Examination of the mental status reveals it is clear. Oral cavity negative. Lungs distant but clear. Abdomen massively obese, but nontender. The buttock wound is packed. No new skin rashes noted. He uses peripheral IVs. LABORATORY STUDIES: White count last measured yesterday March 17 down from 20,000 late last week. Platelet count normal 354, creatinine 0.82. LFTs are normal. Albumin 3.0. Micro studies include the abscess which grew just Staph aureus. Anaerobe cultures still pending, however. The Staph aureus turns out to be resistant to erythromycin but sensitive to clindamycin. It is also sensitive to all the standard agents except the quinolones. No new imaging is available. IMPRESSION: This morbidly obese patient with underlying diabetes presents with a large buttock abscess which has now been successfully drained. We had initially treated him with cefepime and Flagyl to provide broad coverage given his diabetic situation but now that we know it is MSSA, I think we can narrow our focus on the antibiotics considerably. RECOMMENDATIONS: 1. Will transition the patient from cefepime to Ancef or cefazolin 2 g q.8. 2. I would probably consider a 10-14 day course adequate of both the cefazolin and Flagyl. The patient tells me he will be going to [facility] for while until the wound starts to heal and I think it is probably reasonable to continue with a total duration of antibiotics of about 14 days, though this could be truncated a bit if need be to facilitate a placement or discharge from [place]. 3. I think we will go ahead and sign off at this time with a recommendation regarding cefazolin 2 g q. plus Flagyl 500 p.o. q.8 to be continued for 10-14 total days which will take us through somewhere between August 11 and . This course could be modified to accommodate how long he would be staying at [place] [facility]. Thank you very much and I will be signing off.
[2016-08-03] MEDS: CeFAZolin Inj 2 GM in IV Premix 1 EACH IV SCH ×2 (12:37→20:47)
--- NOTE | 2016-08-03 17:24 | PCM.PNMED ---
Subjective Date of Service Aug 03, 2016 Subjective Denies any new issues/complaints Exam Vital Signs Vital Sign - Last Date Time Temp Pulse Resp B/P Pulse Ox O2 Delivery O2 Flow Rate FiO2 08/03/16 12:55 36.6 89 20 140/82 93 Room Air 08/01/16 19:25 2.00 Intake and Output 08/02/16 08/02/16 08/03/16 Cumulative From/Thru 15:00 23:00 07:00 07/29/16 08:29 - 08/03/16 06:43 Intake Total 1319 ml 9488 ml Output Total 300 ml 5370 ml Balance 1019 ml 4118 ml Intake Oral 1100 ml 5703 ml IV Total 219 ml 3785 ml Output Urine Total 300 ml 5350 ml Estimated Blood Loss 20 ml # Voids 1 6 # Bowel Movements 3 Exam General: Alert, Cooperative, No Acute Distress Head: Normal Eyes: Scleral Anicteric Mouth: Mucous Membr Moist/[place] Neck: Supple Chest & Lungs: Chest Wall Normal, Clear to auscultation & percussion Cardiovascular: Regular Rate/Rhythm Abdomen: Non-tender, Non-distended, Normoactive bowel tones, Soft Extremities: Other (1+ pedal edema and mild erythema of the lower half of the lower legs bilaterally) Neurological: Grossly Neurologically Intact, Normal Speech IVs and Medications Medications Reviewed: Medications were reviewed in detail Lab and Diagnostics Result Diagram: 08/02/16 0500 08/02/16 0500 X-Rays, CTs and MRIs PROCEDURE: X-RAY CHEST ONE VIEW, PORTABLE ([id number]) INDICATIONS: SHORTNESS OF BREATH TECHNIQUE: One view of the chest was acquired. COMPARISON: [facility], CR, XR CHEST 1VW (PORTABLE), 04/28/2016, 14: 23. FINDINGS: Surgical changes and devices: None. Lungs and pleura: No pleural effusions or pneumothorax. Lungs are clear. Mild prominence of pulmonary vascularity but no confluent pulmonary edema. Mediastinum: Mediastinal contours appear normal. Heart size is mildly increased. Bones and chest wall: No suspicious bony lesions. Overlying soft tissues appear unremarkable. IMPRESSION: Mild cardiomegaly. No definitive CHF. Dictated by: Cely Jurado M.D. on 07/29/2016 at 9:10 Approved by: Cely Jurado M.D. on 07/29/2016 at 9:15 Assessment & Plan 75-year-old male with markedly obese BMI57, hypertension, diabetes, hyperlipidemia, MATILDE on CPAP(not compliant recently), sCHF p/w Generalized Weakness, lightheadedness, chills # Acute Right Buttock Abscess. Present on admission. - Post Incision and drainage large right buttock abscess on 07/31/16 - Appreciate ID and surgery consults. Will followup with recommendations - Cefazolin 2 g q. plus Flagyl 500 p.o. q.8 to be continued for 10-14 total days which will take us through somewhere between August 11 and - Culture growing MSSA # Chronic diastolic heart failure. Compensated - Echo on 07/30 suboptimal but notable for "left ventricular systolic function is preserved." - Continue with current home meds - Ins/Outs continue to remain positive - Continue with IV Lasix 40mg daily and followup I/O and renal function # Diabetes mellitus, type II. Poorly controlled. - HgA1C 6.8 - Continue to hold home Metformin - Continue with Lantus (started during this hospital) and titrate up - Lispro SS # Morbid Obesity - Nutrition and diabetic teaching # History of obstructive sleep apnea. Stable. - CPAP resumed but pt reportedly is refusing (per earlier notes) # History of hypertension. stable - Continue with current meds # Hyperlipidemia. - Continue statin Dispo: SNF in 1-2 days pending improved diuresis VTE Prophylaxis: Sub-Q Heparin (Unfractionated) VTE Mechanical Devices: Intermittant Pneumatic CD Resuscitation Status: DNR/DNI:Do Not Resuscitate/Intubate Everett Arboleda Aug 03, 2016 17:24
[2016-08-03] MEDS ORDERED: Furosemide 10 mg/mL 4 mL Inj IVPUSH ONE (17:25)
--- NOTE | 2016-08-03 17:44 | NUR ---
Dressing Change Activity Dressing changed this shift per orders. Patient tolerated dressing change well. Patient able to help with turning in bed, encouraged to be more mobile. Care is ongoing.
[2016-08-03] MEDS: Verapamil SR 240 mg ER12 Tablet PO SCH (21:14)
[2016-08-03] MEDS: Verapamil SR 180 mg ER12 Tablet PO SCH (21:14)
[2016-08-03] MEDS: Insulin GLARgine 100 Unit/mL Syringe SUBQ SCH (21:16)
[2016-08-04] MEDS: Heparin 5,000 Unit/mL Inj SUBQ SCH ×3 (00:52→17:05)
--- NOTE | 2016-08-04 02:23 | NUR ---
Pain/dressing Pt reporting 7/10 pain to back and is taking 2 tabs of [place] with relief. Dressing on buttocks changed due/to soiling from urine. Gauze dressing applied. Calmoseptine applied to groin redness.
[2016-08-04] MEDS: HYDROcodone-APAP 5-325 mg Tablet PO PRN ×5 (02:55→21:40)
[2016-08-04] MEDS: CeFAZolin Inj 2 GM in IV Premix 1 EACH IV SCH ×3 (03:50→19:57)
[2016-08-04 04:30] VITALS: BP 148/76; PULSE 84; RESP 20; O2SAT 94
[2016-08-04] MEDS ORDERED: Furosemide 10 mg/mL 4 mL Inj IVPUSH SCH (08:30)
[2016-08-04] MEDS: Polyethylene Glycol (PEG) 17 Gm Powder PO SCH ×2 (08:30→21:41)
[2016-08-04 08:39] LABS: Mean Corpuscular Hemoglobin 28.1 pg (27.0-35.0); Mean Corpuscular Volume 89.5 fL (81-100)
--- NOTE | 2016-08-04 09:03 | PCM.PNSURG ---
Subjective Date of Service: Aug 04, 2016 Visit Information: Reason for Visit Sepsis Surgery/Surgery Date I & D RIGHT BUTTOCK ABCESS 07/31/16 Post-Op Day #4 Date of Admission: Jul 29, 2016 at 13:35 Hospital Day # Subjective: The patient states he was out of bed twice yesterday, nursing states the patient is not mobilizing. Denies surgical site pain. Postop General: No Complaints Gastrointestinal: Good Appetite, Tolerating Oral Feedings, Passing Stool Pain Management: PO Postop Activity: Other (not ambulating) Objective Vital Sign- Last 8 Hours Date Time Temp Pulse Resp B/P Pulse Ox O2 Delivery O2 Flow Rate FiO2 08/04/16 04:30 36.7 84 20 148/76 94 CPAP Intake and Output- Last 8 Hour 08/04/16 Cumulative From/Thru 07:00 07/29/16 08:29 - 08/04/16 06:11 Intake Total 840 ml 38057 ml Output Total 525 ml 6295 ml Balance 315 ml 6364 ml Intake Oral 490 ml 8353 ml IV Total 350 ml 4306 ml Output Urine Total 525 ml 6275 ml Estimated Blood Loss 20 ml # Voids 1 11 # Bowel Movements 0 3 General: Alert, Cooperative, No Acute Distress Lungs: Clear to Auscultation Heart: Regular Rate/Rhythm SURGICAL WOUND : Wound Location/Description Right buttock wound is examined: The surrounding tissues are carefully palpated , there is no fluctuance in the surrounding tissues, no pain or fluctuance in the perianal region to palpation. There is no surrounding erythema. There is no discharge from the surgical site. The wound was not probed. There are minimal eschars and no exudates. There was no bleeding. Neuro: Normal Speech Catheters: None Result Diagram: 08/02/16 0500 08/04/16 0818 Assessment & Plan Impression Primary diagnosis: Right buttock abscess. POD #4 with healing wound and no evidence of undrained pockets. Other chronic conditions: 1. Chronic diastolic heart failure 2. Type II diabetes mellitus 3. Morbid obesity 4. Obstructive sleep apnea 5. Hypertension 6. Hyperlipidemia 7. Depression and anxiety 8. Bipolar 9. Iron deficiency anemia 10. Urinary incontinence 11. Former cigarette smoker Problems: Plan Ongoing wound care with the assistance of the wound care team. Disposition as per hospitalist service. Pain Management: Oral analgesic VTE Prophylaxis: Sub-Q Heparin (Unfractionated) Resuscitation Status: DNR/DNI:Do Not Resuscitate/Intubate Kwaku Porter PA-C Aug 04, 2016 09:03
--- NOTE | 2016-08-04 09:17 | NUR ---
Activity Was alerted that pt was refusing to get oob. Spoke with primary nurse and [employer] (eileen/elizabeth). Surgery PA Kwaku encouraged pt to get oob. Pt was agreeable to get up to chair without issue. At this time pt is sitting up in chair. Pt was a sba with a venkat walker. Care conts
[2016-08-04] MEDS: risperiDONE 1 mg Tablet PO SCH (09:20)
[2016-08-04] MEDS: MeTOProlol XL 25 mg ER24 Tablet PO SCH (09:20)
[2016-08-04] MEDS: Insulin LISPRO 300 Unit/3 mL Inj SUBQ SCH ×4 (09:22→21:42)
--- NOTE | 2016-08-04 10:15 | NUR ---
Spoke with Tania Dobson at , she authorized [facility]. Advised [employer] WORKER.
--- NOTE | 2016-08-04 10:29 | NUR ---
Social Work-readiness for discharge: Data:EMR Reviewed. Pt is on day 6 of hospitalization for sepsis per H&P. Pt is not medically stable at this time anticipate 1-2 more days. ALCIDES updated by that pt will need IV abx at discharge. SW updated [facility] regarding IV abx, they will look at medication. PT continues to recommend SNF placement. [place] authorization has been obtained. Paperwork and PASRR In the chart. SW will continue to follow. Assessment:pt who would benefit from SNF. Plan:Pt has been accepted at [facility] when medically stable. Pt will go out on IV abx, [facility] reviewing medications today. Insurance authorization has been obtained. Paperwork and PASRR In the chart. SW will continue to follow. POONAM Garcia
[2016-08-04 13:19] VITALS: BP 122/79; PULSE 91; RESP 22; O2SAT 93
--- NOTE | 2016-08-04 15:39 | PCM.PNMED ---
Subjective Date of Service Aug 04, 2016 Subjective Denies any new issues/complaints Exam Vital Signs Vital Sign - Last Date Time Temp Pulse Resp B/P Pulse Ox O2 Delivery O2 Flow Rate FiO2 08/04/16 13:19 36.3 91 22 122/79 93 Room Air 08/01/16 19:25 2.00 Intake and Output 08/03/16 08/03/16 08/04/16 Cumulative From/Thru 15:00 23:00 07:00 07/29/16 08:29 - 08/04/16 06:11 Intake Total 2331 ml 840 ml 27601 ml Output Total 400 ml 525 ml 6295 ml Balance 1931 ml 315 ml 6364 ml Intake Oral 2160 ml 490 ml 8353 ml IV Total 171 ml 350 ml 4306 ml Output Urine Total 400 ml 525 ml 6275 ml Estimated Blood Loss 20 ml # Voids 4 1 11 # Bowel Movements 0 3 Exam General: Alert, Cooperative, No Acute Distress Head: Normal Eyes: Scleral Anicteric Mouth: Mucous Membr Moist/[place] Neck: Supple Chest & Lungs: Chest Wall Normal, Clear to auscultation bilat Cardiovascular: Regular Rate/Rhythm Abdomen: Non-tender, Non-distended, Normoactive bowel tones, Soft Extremities: Other (2+ pedal edema and mild erythema of the lower half of the lower legs bilaterally) Neurological: Grossly Neurologically Intact, Normal Speech IVs and Medications Medications Reviewed: Medications were reviewed in detail Lab and Diagnostics Result Diagram: 08/04/1681708/04/1618 X-Rays, CTs and MRIs PROCEDURE: X-RAY CHEST ONE VIEW, PORTABLE ([id number]) INDICATIONS: SHORTNESS OF BREATH TECHNIQUE: One view of the chest was acquired. COMPARISON: [facility], CR, XR CHEST 1VW (PORTABLE), 04/28/2016, 14: 23. FINDINGS: Surgical changes and devices: None. Lungs and pleura: No pleural effusions or pneumothorax. Lungs are clear. Mild prominence of pulmonary vascularity but no confluent pulmonary edema. Mediastinum: Mediastinal contours appear normal. Heart size is mildly increased. Bones and chest wall: No suspicious bony lesions. Overlying soft tissues appear unremarkable. IMPRESSION: Mild cardiomegaly. No definitive CHF. Dictated by: Cely Jurado M.D. on 07/29/2016 at 9:10 Approved by: Cely Jurado M.D. on 07/29/2016 at 9:15 Assessment & Plan 75-year-old male with markedly obese BMI57, hypertension, diabetes, hyperlipidemia, MATILDE on CPAP(not compliant recently), sCHF p/w Generalized Weakness, lightheadedness, chills # Acute Right Buttock Abscess. Present on admission. - Post Incision and drainage large right buttock abscess on 07/31/16 - Appreciate ID and surgery consults. Will followup with recommendations - Cefazolin 2 g q. plus Flagyl 500 p.o. q.8 to be continued for 10-14 total days which will take us through somewhere between August 11 and - Culture growing MSSA # Acute on chronic diastolic heart failure. Increasing lower extremity edema with positive I/O - Echo on 07/30 suboptimal but notable for "left ventricular systolic function is preserved." - Continue with current home meds - Ins/Outs continue to remain positive - Continue with IV Lasix and (increase from 80mg to 100mg daily) - Followup renal function closely # Diabetes mellitus, type II. Poorly controlled. - HgA1C 6.8 - Continue to hold home Metformin - Continue with Lantus (started during this hospital) and titrate up - Lispro SS # Morbid Obesity - Nutrition and diabetic teaching # History of obstructive sleep apnea. Stable. - CPAP resumed but pt reportedly is refusing (per earlier notes) # History of hypertension. stable - Continue with current meds # Hyperlipidemia. - Continue statin Dispo: SNF in 1-2 days pending improved diuresis VTE Prophylaxis: Sub-Q Heparin (Unfractionated) VTE Mechanical Devices: Intermittant Pneumatic CD Resuscitation Status: DNR/DNI:Do Not Resuscitate/Intubate Everett Arboleda Aug 04, 2016 15:39
--- NOTE | 2016-08-04 18:35 | NUR ---
Activity/voiding Pt up to chair this shift for meals. Trapeze placed on bed so pt can help with bed mobility. Pt using urinal in bed and bedpan for BM, complete bed change done twice this shift, as pt stated people did not answer his call light fast enough so he peed in the bed. pt had 2 large BMs this shift. Pain controlled with PO Vicodin
[2016-08-04 20:40] VITALS: BP 138/81; PULSE 92; RESP 20; O2SAT 92
[2016-08-04] MEDS: Verapamil SR 240 mg ER12 Tablet PO SCH (21:40)
[2016-08-04] MEDS: Verapamil SR 180 mg ER12 Tablet PO SCH (21:40)
[2016-08-04] MEDS: Insulin GLARgine 100 Unit/mL Syringe SUBQ SCH (21:41)
[2016-08-04 22:28] VITALS: RESP 20; O2SAT 95
[2016-08-04 22:29] VITALS: PULSE 84; RESP 20; O2SAT 95
[2016-08-05] MEDS: Heparin 5,000 Unit/mL Inj SUBQ SCH ×4 (00:19→23:55)
[2016-08-05] MEDS: HYDROcodone-APAP 5-325 mg Tablet PO PRN ×4 (02:06→20:37)
[2016-08-05] MEDS: CeFAZolin Inj 2 GM in IV Premix 1 EACH IV SCH ×3 (04:24→20:35)
--- NOTE | 2016-08-05 04:31 | NUR ---
Update [place] PO has been effective for pain. Pt. has been wearing CPAP tonight and tolerating okay. Will continue to monitor.
[2016-08-05 05:56] VITALS: BP 150/81; PULSE 85; RESP 20; O2SAT 93
[2016-08-05] MEDS: Polyethylene Glycol (PEG) 17 Gm Powder PO SCH ×2 (08:40→20:50)
[2016-08-05] MEDS: risperiDONE 1 mg Tablet PO SCH (08:43)
[2016-08-05] MEDS: MeTOProlol XL 25 mg ER24 Tablet PO SCH (08:44)
[2016-08-05] MEDS: Furosemide 10 mg/mL 10 mL Inj IVPUSH SCH (08:49)
[2016-08-05] MEDS: Insulin LISPRO 300 Unit/3 mL Inj SUBQ SCH ×4 (08:53→20:52)
[2016-08-05 11:45] VITALS: PULSE 85; RESP 20; O2SAT 96
[2016-08-05 13:19] VITALS: BP 121/77; PULSE 90; RESP 20; O2SAT 95
--- NOTE | 2016-08-05 15:10 | NUR ---
NUTRITION ASSESSMENT: ASSESS: 76YO M admit with R buttock abscess s/o I&D, wound care following. Developing lower extremity edema per MD notes. MD notes requesting Nutrition consult re diabetes/obesity. PMHX: Morbid obesity,DM, chronic heart failure, bipolar,HTN DIET: Diabetic. PO 50-100% LABS: Alb 3.0, [id number], A1c 6.8 (decreased from Apr 2016 of 7.2) MEDS: Metformin; on Lantus while hospitalized GI:2 BM 08/04 WEIGHT: 171.5kg, Admit 173.18kg BMI: 55.0 EST.NEEDS: OBESITY,BMI>40 Kcal: 5459-4641 Pro: 115-145g NUTRITION DIAGNOSIS: (1) Altered nutrition related laboratory values related to Type II DM as evidenced by elevated blood sugars 200-300 at bedside. INTERVENTION: (1) Will discuss diabetic diet with pt, potential for outpt. referral. MONITOR/EVALUATE: F/U per moderate risk. Addendum: 08/05/16 at [address] Attempted diabetes education, pt refuses, reporting he knows nothing about diabetes and intends to keep it that way.
--- NOTE | 2016-08-05 15:27 | PCM.PNMED ---
Subjective Date of Service Aug 05, 2016 Subjective Denies any new issues/complaints Exam Vital Signs Vital Sign - Last Date Time Temp Pulse Resp B/P Pulse Ox O2 Delivery O2 Flow Rate FiO2 08/05/16 13:19 36.4 90 20 121/77 95 Room Air 08/01/16 19:25 2.00 Intake and Output 08/04/16 08/04/16 08/05/16 Cumulative From/Thru 15:00 23:00 07:00 07/29/16 08:29 - 08/05/16 06:37 Intake Total 1498 ml 1126 ml 82703 ml Output Total 900 ml 1050 ml 8245 ml Balance 598 ml 76 ml 7038 ml Intake Oral 1498 ml 600 ml 22076 ml IV Total 526 ml 4832 ml Output Urine Total 900 ml 1050 ml 8225 ml Estimated Blood Loss 20 ml # Voids 11 # Bowel Movements 2 0 5 Exam General: Alert, Cooperative, No Acute Distress Head: Normal Eyes: Scleral Anicteric Mouth: Mucous Membr Moist/[place] Neck: Supple Chest & Lungs: Chest Wall Normal, Clear to auscultation bilat Cardiovascular: Regular Rate/Rhythm Abdomen: Non-tender, Non-distended, Normoactive bowel tones, Soft Extremities: Other (2+ pedal edema and mild erythema of the lower half of the lower legs bilaterally) Neurological: Grossly Neurologically Intact, Normal Speech IVs and Medications Medications Reviewed: Medications were reviewed in detail Lab and Diagnostics Result Diagram: 08/04/16 0818 08/05/16 0555 X-Rays, CTs and MRIs PROCEDURE: X-RAY CHEST ONE VIEW, PORTABLE ([id number]) INDICATIONS: SHORTNESS OF BREATH TECHNIQUE: One view of the chest was acquired. COMPARISON: [facility], CR, XR CHEST 1VW (PORTABLE), 04/28/2016, 14: 23. FINDINGS: Surgical changes and devices: None. Lungs and pleura: No pleural effusions or pneumothorax. Lungs are clear. Mild prominence of pulmonary vascularity but no confluent pulmonary edema. Mediastinum: Mediastinal contours appear normal. Heart size is mildly increased. Bones and chest wall: No suspicious bony lesions. Overlying soft tissues appear unremarkable. IMPRESSION: Mild cardiomegaly. No definitive CHF. Dictated by: Cely Jurado M.D. on 07/29/2016 at 9:10 Approved by: Cely Jurado M.D. on 07/29/2016 at 9:15 Assessment & Plan 75-year-old male with markedly obese BMI57, hypertension, diabetes, hyperlipidemia, MATILDE on CPAP(not compliant recently), sCHF p/w Generalized Weakness, lightheadedness, chills # Acute Right Buttock Abscess. Present on admission. - Post Incision and drainage large right buttock abscess on 07/31/16 - Appreciate ID and surgery consults. Will followup with recommendations - Cefazolin 2 g q. plus Flagyl 500 p.o. q.8 to be continued for 10-14 total days which will take us through somewhere between August 11 and - Culture growing MSSA # Acute on chronic diastolic heart failure. Increasing lower extremity edema with positive I/O over past several days - Echo on 07/30 suboptimal but notable for "left ventricular systolic function is preserved." - Continue with current home meds - Ins/Outs continue to remain positive - Continue with IV Lasix and (increased from 80mg to 100mg daily) - Followup renal function closely # Diabetes mellitus, type II. Poorly controlled. - HgA1C 6.8 - Continue to hold home Metformin - Continue with Lantus (started during this hospital) and titrate up - Lispro SS # Morbid Obesity - Nutrition and diabetic teaching # History of obstructive sleep apnea. Stable. - CPAP resumed but pt reportedly is refusing (per earlier notes) # History of hypertension. stable - Continue with current meds # Hyperlipidemia. - Continue statin Dispo: SNF in 1-2 days pending improved diuresis VTE Prophylaxis: Sub-Q Heparin (Unfractionated) VTE Mechanical Devices: Intermittant Pneumatic CD Resuscitation Status: DNR/DNI:Do Not Resuscitate/Intubate Everett Arboleda Aug 05, 2016 15:27
--- NOTE | 2016-08-05 18:20 | NUR ---
ambulation / incontinence pt must be encouraged to move from bed to chair. Pt seems to be incontinent most of times. Advised pt to stop leaving urinal under panis and in bed with him as he will develop sores from this. Pt states he understands but continues to leave urinal underneath himself at all times. Pt frequently wets bed even if urinal is underneath panis over penis. Pt up to chair for meals and for all bed changes. Up with FWW 1-2 assist and gait belt. Pt shaky and weak but able to ambulate gingerly to chair. Bottom is typically reddened and sore as well as moist. smear of BM also noted when cleaned. Pt gets wiped clean every time he gets up. Care continues
[2016-08-05 19:14] VITALS: PULSE 72; RESP 20; O2SAT 94
--- NOTE | 2016-08-05 19:15 | NUR ---
rash wrist left pt noticed rash under wrist band on left wrist. Reddened and itchy per pt. new wrist band placed on right wrist loose. will continue to monitor.
[2016-08-05 20:20] VITALS: BP 138/83; PULSE 86; RESP 20; O2SAT 93
[2016-08-05] MEDS: Verapamil SR 180 mg ER12 Tablet PO SCH (20:37)
[2016-08-05] MEDS: Verapamil SR 240 mg ER12 Tablet PO SCH (20:37)
[2016-08-05] MEDS: Insulin GLARgine 100 Unit/mL Syringe SUBQ SCH (20:52)
[2016-08-06 02:29] VITALS: RESP 15; O2SAT 95
--- NOTE | 2016-08-06 03:53 | NUR ---
Pain/ Skin Care Pt. rates pain 10/18. [place] PO admin. Baby powder applied, and pillowcases under panis to prevent further skin breakdown. Declines turns at times. Will continue to monitor.
[2016-08-06] MEDS: CeFAZolin Inj 2 GM in IV Premix 1 EACH IV SCH ×2 (04:34→12:08)
[2016-08-06] MEDS: HYDROcodone-APAP 5-325 mg Tablet PO PRN ×3 (05:18→14:42)
[2016-08-06 06:14] LABS: Mean Corpuscular Hemoglobin 28.2 pg (27.0-35.0); Mean Corpuscular Volume 92.1 fL (81-100)
[2016-08-06] MEDS: risperiDONE 1 mg Tablet PO SCH (08:29)
[2016-08-06] MEDS: Polyethylene Glycol (PEG) 17 Gm Powder PO SCH (08:29)
[2016-08-06] MEDS: Furosemide 10 mg/mL 10 mL Inj IVPUSH SCH (08:30)
[2016-08-06] MEDS: MeTOProlol XL 25 mg ER24 Tablet PO SCH (08:31)
[2016-08-06] MEDS: Insulin LISPRO 300 Unit/3 mL Inj SUBQ SCH ×2 (08:35→12:09)
[2016-08-06 08:36] VITALS: BP 115/77; PULSE 94; RESP 20; O2SAT 94
[2016-08-06] MEDS: Heparin 5,000 Unit/mL Inj SUBQ SCH (08:36)
--- NOTE | 2016-08-06 08:59 | PCM.DIMED ---
Discharge Instructions Date of Service Aug 06, 2016 Dates of Hospitalization Jul 29, 2016 at 13:35 Discharge Diagnosis Discharge Diagnosis Primary diagnosis Acute Right Buttock Abscess. healing well Acute on chronic diastolic heart failure. resolved Secondary diagnosis Diabetes mellitus, type II. Morbid Obesity Obstructive sleep apnea. Hypertension. Hyperlipidemia. Diet Heart Healthy, Diabetic Activity Other (as per Physical therapy recommendations) Call your provider Fever or Chills, Shortness of breath Patient Instructions You will continue to have Antibiotics for a few more days You will recover in the skilled nursing for a few weeks and hopefully transition back home You will continue to have diuretics (water pills) to keep fluids out of your body Follow-up Provider: Vladislav Patel Malik MD Aug 06, 2016 08:59
[2016-08-06] MEDS ORDERED: INSU100V7 SUBQ (09:06)
[2016-08-06] MEDS ORDERED: INSLIS SUBQ (09:06)
[2016-08-06] MEDS ORDERED: FURO80TA83 PO (09:06)
[2016-08-06] MEDS ORDERED: METR500T PO (09:06)
[2016-08-06] MEDS ORDERED: CEFA2PIG3 IV (09:09)
--- NOTE | 2016-08-06 09:17 | PCM.PNSURG ---
Subjective Date of Service: Aug 06, 2016 Date of Service: Aug 06, 2016 Visit Information: Reason for Visit Sepsis Surgery/Surgery Date I & D RIGHT BUTTOCK ABCESS 07/31/16 Post-Op Day # Date of Admission: Jul 29, 2016 at 13:35 Hospital Day # Subjective: Mr. Guillermo Baker was sitting up in chair at bedside, eating breakfast. He was out of bed yesterday, nursing states the patient is not mobilizing well. Continues to Denies surgical site pain. Denies nausea, vomiting, fever, chills, abdominal pain, constipation, diarrhea. Objective Objective General: Alert, Cooperative, No Acute Distress Lungs: Clear to Auscultation Heart: Regular Rate/Rhythm SURGICAL WOUND : Wound Location/Description Right buttock wound is examined: The surrounding tissues are carefully palpated , there is no fluctuance in the surrounding tissues, no pain or fluctuance in the perianal region to palpation. There is no surrounding erythema. There is no discharge from the surgical site. The wound was not probed. There are minimal eschars and no exudates. There was no bleeding. Vital Sign- Last 8 Hours Date Time Temp Pulse Resp B/P Pulse Ox O2 Delivery O2 Flow Rate FiO2 08/06/16 02:29 15 95 08/06/16 00:35 CPAP/BIPAP Intake and Output- Last 8 Hour 08/06/16 Cumulative From/Thru 07:00 07/29/16 08:29 - 08/06/16 06:11 Intake Total 1000 ml 97309 ml Output Total 875 ml 9770 ml Balance 125 ml 7813 ml Intake Oral 900 ml 95924 ml IV Total 100 ml 5032 ml Output Urine Total 875 ml 9750 ml Estimated Blood Loss 20 ml # Voids 14 # Bowel Movements 0 5 Result Diagram: 08/06/16 0555 08/06/16 0555 Assessment & Plan Impression Primary diagnosis: Right buttock abscess. POD #6 with healing wound and no evidence of undrained pockets. Other chronic conditions: 1. Chronic diastolic heart failure 2. Type II diabetes mellitus 3. Morbid obesity 4. Obstructive sleep apnea 5. Hypertension 6. Hyperlipidemia 7. Depression and anxiety 8. Bipolar 9. Iron deficiency anemia 10. Urinary incontinence 11. Former cigarette smoker Problems: Plan Ongoing wound care with the assistance of the wound care team. Disposition as per hospitalist service. Okay for d/c home from surgery perspective. VTE Prophylaxis: Sub-Q Heparin (Unfractionated) Resuscitation Status: DNR/DNI:Do Not Resuscitate/Intubate Attending Statement: I agree with Dr Nguyen's assessment and plan. KATIUSKA NGUYEN DO Aug 06, 2016 07:53 Tod Beltran MD August 11, 2016 14:33
--- NOTE | 2016-08-06 10:18 | NUR ---
Spoke to Elen at [facility], [facility] transport will transport pt to [facility] at 4pm. Advised RN and MANAGER BEAUTY. orders faxed, packet ready.
--- NOTE | 2016-08-06 10:21 | NUR ---
Social Work-Discharge Data: EMR Reviewed. Pt is on day 8 of hospitalization for sepsis per H&P. Pt to discharge today. Pt will need IV abx at discharge, [facility] aware of this and agreeable. PT continues to recommend SNF. [facility] Specialist spoke with [facility] who is agreeable to accepting pt today. UR Specialist created packet and faxed orders. Pt to require venkat transport, [facility] aware of this. [facility] set up transport via venkat wheelchair at 1600, all updated and agreeable to plan. Pt to discharge to [facility] by venkat wheelchair at 1600, Andwendy to follow. SABRINA, RN, pt/family all updated and agreeable to plan. Assessment:pt who would benefit from SNF. Plan: Pt to discharge to [facility] by webtide wheelchair at 1600, MD Andwendy to follow. UC, RN, pt/family all updated and agreeable to plan. POONAM Fields
--- NOTE | 2016-08-06 16:31 | NUR ---
Student Nurse Note Discharge Patient discharged at 1630 via wheelchair with transport service to [facility]. Peripheral IV d/c'd, all belongings with patient. Report called in to [facility]. Care discontinued.
--- NOTE | 2016-08-07 01:14 | PCM.DC.MED ---
Discharge Summary Date of Service Aug 07, 2016 Dates of Hospitalization Date of Hospital Admission Jul 29, 2016 at 13:35 Date of Discharge: Aug 06, 2016 Providers: Admitting Physician: Nessa Campbell MD Primary Care Physician: Vladislav Patel DO Attending Physician: Nessa Campbell MD Diagnosis at Time of Discharge Diagnosis at Time of Discharge Primary diagnosis Acute Right Buttock Abscess. healing well Acute on chronic diastolic heart failure. resolved Secondary diagnosis Diabetes mellitus, type II. Morbid Obesity Obstructive sleep apnea. Hypertension. Hyperlipidemia. Consultations General surgery: Dr Joseph De Souza Infectious Disease: Dr Robert Villarreal Procedures XRay, CTs & MRIs PROCEDURE: X-RAY CHEST ONE VIEW, PORTABLE ([id number]) INDICATIONS: SHORTNESS OF BREATH TECHNIQUE: One view of the chest was acquired. COMPARISON: [facility], CR, XR CHEST 1VW (PORTABLE), 04/28/2016, 14: 23. FINDINGS: Surgical changes and devices: None. Lungs and pleura: No pleural effusions or pneumothorax. Lungs are clear. Mild prominence of pulmonary vascularity but no confluent pulmonary edema. Mediastinum: Mediastinal contours appear normal. Heart size is mildly increased. Bones and chest wall: No suspicious bony lesions. Overlying soft tissues appear unremarkable. IMPRESSION: Mild cardiomegaly. No definitive CHF. Dictated by: Cely Jurado M.D. on 07/29/2016 at 9:10 Approved by: Cely Jurado M.D. on 07/29/2016 at 9:15 Brief History 75-year-old male with markedly obese BMI57, hypertension, diabetes, hyperlipidemia, MATILDE on CPAP(not compliant recently), sCHF p/w Generalized Weakness, lightheadedness, chills Patient stated that he was usual state of health, in by primary doctor four days ago for regular checkup, didn't hear anything wrong. Yesterday pt had severe chills for a while, but able to eat with good appetite, no n/v. didn't take temp. Today, pt was very weak, unable to get up from his chair, felt dizzy while he was sitting, decided to call EMS. Patient denied any changes of urinary habits, no urgency, frequency, changes of urine color or smell. denied cough, sputum, but has SOB chronically, fell a sleep in recliner these days, didn't use CPAP machine although it's working well. pt denied diarrhea, sick contacts. Baseline using walker when he moves or on WC. Of note, pt had Pseudomonas UTI in (UCX+), received Rocephin then discharged with Ciprofloxacin. pt stated that he finished it, didn't think that he had similar symptoms at that time. ED VS [id number], 72, 20, 97% on RA, labs showed marked leukocytosis, ESR, hypoMg, mildly lactate, mild PCT. CXR was equivocal, mildly congested, no obvious infiltrate, EKG LAD+, sinus tachy94, pt received 1dose of Rocephin. Patient has likely Gr1 pressure sore confirmed by ED provider but no opening ulcers. Upon interview, pt still felt very weak, had labored breathing with his mouth , stated that he has been doing this, unchanged from baseline. denied abdominal pain. Hospital Course 1 Acute Right Buttock Abscess with MSSA infection. Present on admission. - Post Incision and drainage large right buttock abscess on 07/31/[address] De Souza - Appreciate ID and surgery consults. Will followup with recommendations - Cefazolin 2 g q. plus Flagyl 500 p.o. q.8 to be continued for 10-14 total days which will take us through somewhere between August 11 and , as per Dr Villarreal 2 Acute on chronic diastolic heart failure. Increasing lower extremity edema with positive I/O over past several days - Echo on 07/30 suboptimal but notable for "left ventricular systolic function is preserved." - Continue with IV Lasix and (increased from 80mg to 100mg daily) transition to PO Lasix 80 mg bid upon discharge - Followup renal function closely 3 Diabetes mellitus, type II. Poorly controlled. - HgA1C 6.8 - Continue Metformin - Continue with Lantus (started during this hospital) 10 units HS - Lispro correction algorithm 4 Morbid Obesity - Nutrition and diabetic teaching 5 History of obstructive sleep apnea. Stable. - CPAP resumed but pt reportedly is refusing (per earlier notes) 6 Hypertension. stable - Continue Clonidine, Lisinopril, Verapamil and Metoprolol 7 Hyperlipidemia. - Continue Atorvastatin 40 mg HS Exam Vital Signs (Last) Date Time Temp Pulse Resp B/P Pulse Ox O2 Delivery O2 Flow Rate FiO2 08/06/16 08:36 36.7 94 20 115/77 94 Room Air 08/01/16 19:25 2.00 Exam General: Alert, Cooperative, No Acute Distress Head: Normal Eyes: Scleral Anicteric Mouth: Mucous Membrane Moist/[place] Neck: Supple Chest & Lungs: Chest Wall Normal, Clear to auscultation bilateral Cardiovascular: Regular Rate/Rhythm Abdomen: Non-tender, Non-distended, Normoactive bowel tones, Soft Extremities: Other (2+ pedal edema and mild erythema of the lower half of the lower legs bilaterally) Neurological: Grossly Neurologically Intact, Normal Speech Test 07/29/16 08:45 07/29/16 10:59 07/29/16 11:38 07/29/16 16:42 Prothrombin Time 10.7sec (8.1-12.5) Prothromb Time International Ratio 1.00ratio Troponin T 0.010ug/L (0.0-0.011) Pro-B-Type Natriuretic Peptide 734.1pg/mL (0-486) Lipase 14U/L (13-60) Hold [place] Top Tube Received (Received) Urine Color Yellow (YELLOW) Urine Appearance Cloudy (CLEAR,HAZY) Urine pH 6.0 (5.0-8.0) Urine Specific [place] 1.020 (1.003-1.035) Urine Protein Tracemg/dL (NEG,TRACE) Urine Glucose (UA) Negativemg/dL (NEGATIVE) Urine Ketones Negativemg/dL (NEGATIVE) Urine Occult Blood Negative (NEGATIVE) Urine Nitrite Negative (NEGATIVE) Urine Bilirubin Negative (NEGATIVE) Urine Urobilinogen Normalmg/dL (NORMAL) Urine Leukocyte Esterase Negative (NEGATIVE) Urine RBC 0-2/hpf (0-2) Urine WBC 0-5/hpf (0-5) Urine Epithelial Cells Occasional/hpf (NONE-MOD) Urine Crystals Amorphous urates (NONE Urine Bacteria Moderate/hpf (NONE-FEW) Urine Hyaline Casts None/lpf (NONE) Urine Granular Casts None seen (NONE SEEN) Urine Waxy Casts None seen (NONE SEEN) Urine Red Blood Cell Casts None seen (NONE SEEN) Urine White Blood Cell Casts None seen (NONE SEEN) Urine Mucus Present (None Seen) Urine Trichomonas None seen (NONE SEEN) Urine Yeast None (NONE SEEN) Urinalysis Comment None Urine Culture Reflexed Indicated Hold Urine Received (Received) Erythrocyte Sedimentation Rate 79mm/hr (0-30) Lactic Acid Level 2.5mmol/L (0.4-2.0) Test 07/30/16 06:00 08/02/16 05:00 08/06/16 05:55 Hemoglobin A1c 6.8% (4.8-5.6) Procalcitonin 0.43ng/mL (0.00-0.08) Neutrophils (%) (Auto) 71.6% (40-74) Lymphocytes (%) (Auto) 11.1% (14-46) Monocytes (%) (Auto) 10.5% (4-12) Eosinophils (%) (Auto) 4.8% (0-5) Basophils (%) (Auto) 0.5% (0-3) Phosphorus Level 2.8mg/dL (2.5-4.9) Magnesium Level 1.8mg/dL (1.6-2.6) Total Bilirubin 0.2mg/dL (0.0-1.2) Aspartate Amino Transf (AST/SGOT) 32U/L (0-50) Alanine Aminotransferase (ALT/SGPT) 34U/L (0-44) Alkaline Phosphatase 76U/L (25-160) Total Protein 5.6g/dL (6.4-8.4) Albumin 3.0g/dL (3.4-5.0) White Blood Count 10.2th/mm3 (3.8-10.1) Red Blood Count 3.79mil/mm3 (4.40-5.80) Hemoglobin 10.7g/dL (13.8-17.2) Hematocrit 34.9% (41.0-50.0) Mean Corpuscular Volume 92.1fL (81-100) Mean Corpuscular Hemoglobin 28.2pg (27.0-35.0) Mean Corpuscular Hemoglobin Concent 30.7% (32.0-37.0) Red Cell Distribution Width 15.0% (12.3-15.4) Platelet Count 384bil/L (150-400) Sodium Level 137mEq/L (134-144) Potassium Level 4.6mEq/L (3.5-5.2) Chloride Level 95mEq/L (97-108) Carbon Dioxide Level 26mmol/L (18-29) Blood Urea Nitrogen 27mg/dL (8-27) Creatinine 0.85mg/dL (0.76-1.27) Estimat Glomerular Filtration Rate 93mL/min (>59) Glucose Level 254mg/dL (60-99) Calcium Level 9.1mg/dL (8.5-10.1) Discharge Medications Discharge Medications Atorvastatin Calcium (Atorvastatin Calcium) 40 Mg Tablet 40 MG PO HS (Reported) Cefazolin Sodium/D5w (Cefazolin 2 G/50 ml-D5w Bag) 2 Gram/50 Ml Piggyback 2 GM IV TID Prescribed by: FIDELINA MENDOSA MD Clonidine (Clonidine) 0.3 Mg Tablet 0.3 MG PO BID (Reported) Clopidogrel (Clopidogrel) 75 Mg Tablet 75 MG PO DAILY (Reported) Furosemide (Lasix) 80 Mg Tablet 80 MG PO BID Prescribed by: FIDELINA MENDOSA MD Insulin Glargine (Lantus U100 Insulin Vial) 100 Unit/Ml Vial 10 UNIT SUBQ HS Prescribed by: FIDELINA MENDOSA MD Insulin Human Lispro (HumaLOG U100 Insulin Vial) 100 Unit/Ml Unit 0 UNIT SUBQ WMHS Check blood sugars before meals and at bedtime. Use correction factor only before meals. Blood Sugar Lispro Correction: <151, 0 units; 151-175, 1 unit; 176-200, 2 units; 201-225, 3 units; 226-250, 4 units; 251-275, 5 units; 276-300 , 6 units; 301-325, 7 units; 326-350, 8 units; 351-375, 9 units; 376-400, 10 units; >400, 12 units. Prescribed by: FIDELINA MENDOSA MD Lisinopril (Lisinopril) 10 Mg Tablet 10 MG PO DAILY (Reported) Metformin (Metformin) 500 Mg Tablet 1,000 MG PO BIDWM (Reported) Metoprolol Succinate ER (Metoprolol Succinate ER) 25 Mg Tab.er.24h 25 MG PO DAILY (Reported) Metronidazole (Flagyl) 500 Mg Tablet 500 MG PO Q8 Prescribed by: FIDELINA MENDOSA MD Omeprazole (Omeprazole) 20 Mg Capsule.dr 20 MG PO DAILY (Reported) Oxybutynin Chloride (Oxybutynin Chloride) 5 Mg Tablet 5 MG PO BID (Reported) Pramipexole Dihydrochloride (Pramipexole Dihydrochloride) 0.25 Mg Tablet 0.25- 0.5 MG PO HS (Reported) Take 1-2 hrs before bedtime Risperidone (Risperidone) 1 Mg Tablet 1 MG PO DAILY Prescribed by: CHRISTEL PINEDA MD Verapamil ER (Verapamil ER) 180 Mg Tablet.er 180 MG PO QPM (Reported) Verapamil ER (Verapamil ER) 240 Mg Tber 240 MG PO DAILY (Reported) As needed Hydrocodone-Acetaminophen 7.5-325 mg (Hydrocodone-Acetaminophen 7.5-325 mg) 1 Each Tablet 1 TAB PO Q6H PRN PRN For Pain (Reported) Followup Plan [facility]position[facility] Discharge Diet: Heart Healthy, Diabetic Discharge Activity: Other (as per Physical therapy recommendations) Patient Instructions You will continue to have Antibiotics for a few more days You will recover in the long-term for a few weeks and hopefully transition back home You will continue to have diuretics (water pills) to keep fluids out of your body Follow-up Provider: Vladislav Patel DO Time spent 35 minutes spend copies to: Vladislav aPtel DO Fidelina Mendosa MD Aug 07, 2016 01:14
== END 2016-08-06 16:30 | DRG 579 ==
LOC: SED 08:12 → EDUNIT# 08:12 → EDBD 08:12 → MPC 13:35 → OSC 07-31 16:17
PROVIDERS: ADMIT Internal Medicine; ATTEND Internal Medicine
PROC: 0J990ZZ Drainage of Buttock Subcutaneous Tissue and Fascia, Open Approach (ICD-10-PCS; principal; 2016-07-31 15:45)
DX: L02.31 Cutaneous abscess of buttock (principal); I50.33 Acute on chronic diastolic (congestive) heart failure; E66.2 Morbid (severe) obesity with alveolar hypoventilation; Z68.43 Body mass index [BMI] 50.0-59.9, adult; E11.65 Type 2 diabetes mellitus with hyperglycemia; B95.61 Methicillin susceptible Staphylococcus aureus infection as the cause of diseases classified elsewhere; Z16.29 Resistance to other single specified antibiotic; E78.5 Hyperlipidemia, unspecified; I10 Essential (primary) hypertension; Z87.891 Personal history of nicotine dependence; Z66 Do not resuscitate; F31.9 Bipolar disorder, unspecified; Z91.19 Patient's noncompliance with other medical treatment and regimen